=== PATIENT | female | born 1940 | race African-American/Black ===

== ENCOUNTER → 2016-06-26 | Outpatient (CLI) | payer MEDICARE, MEDICAID ==
[2016-06-26 11:45] LABS: HEMATOCRIT 32.1 % (36.0-47.0); HEMOGLOBIN 10.9 g/dL (12.0-15.5); HGB HCT DIFFERENCE 0.6; MEAN CORPUSCULAR HEMOGLOBIN 29.6 pg (27.0-33.4); MEAN CORPUSCULAR HGB CONC 33.8 g/dL (32.0-36.0); MEAN CORPUSCULAR VOLUME 88 fl (80-97); RED BLOOD COUNT 3.66 10^6/uL (3.72-5.28); RED CELL DISTRIBUTION WIDTH 13.8 % (11.5-14.0); WHITE BLOOD COUNT 6.3 10^3/uL (4.0-10.5)
[2016-06-26 11:50] LABS: APPEARANCE,URINE CLEAR; BILIRUBIN,URINE NEGATIVE (NEGATIVE); GLUCOSE, URINE 150 mg/dL (NEGATIVE); KETONES,URINE NEGATIVE (NEGATIVE); LEUKOCYTE ESTERASE,URINE TRACE (NEGATIVE); NITRITE,URINE NEGATIVE (NEGATIVE); PROTEIN,URINE 100 mg/dL (NEGATIVE); URINE SPECIFIC GRAVITY 1.009; UROBILINOGEN,URINE NEGATIVE mg/dL (<2.0)
[2016-06-26 12:03] LABS: ANION GAP 12 (5-19); BLOOD UREA NITROGEN 37 mg/dL (7-20); CALCIUM 9.8 mg/dL (8.4-10.2); CARBON DIOXIDE 28 mmol/L (22-30); CHLORIDE 102 mmol/L (98-107); CREATININE RESULT 2.17 mg/dL (0.52-1.25); GLUCOSE 220 mg/dL (75-110); POTASSIUM 4.9 mmol/L (3.6-5.0); SODIUM 141.5 mmol/L (137-145)
== END ==
LOC: OD 10:54
PROVIDERS: ATTEND Internal Medicine Nephrology
DX: E11.22 Type 2 diabetes mellitus with diabetic chronic kidney disease (principal); I12.9 Hypertensive chronic kidney disease with stage 1 through stage 4 chronic kidney disease, or unspecified chronic kidney disease; N18.4 Chronic kidney disease, stage 4 (severe); D64.9 Anemia, unspecified
CPT/HCPCS: 36415; 80048; 81001; 85027

== ENCOUNTER 2016-07-01 10:10 | Emergency (ER) | payer MEDICARE, MEDICAID ==
--- NOTE | 2016-07-02 10:40 | EKG REPORT ---
SEVERITY:- ABNORMAL ECG - SINUS RHYTHM LEFT ANTERIOR FASCICULAR BLOCK CONSIDER LEFT VENTRICULAR HYPERTROPHY NONSPECIFIC T ABNORMALITIES, INFERIOR LEADS : Confirmed by: Iris Maharaj MD 02-Jul-2016 10:39:27
[2016-07-02 12:03] LABS: ABSOLUTE EOSINOPHILS # (AUTO) 0.1 10^3/uL (0.0-0.6); ABSOLUTE LYMPHOCYTES (AUTO) 2.8 10^3/uL (0.5-4.7); ABSOLUTE MONOCYTES (AUTO) 0.6 10^3/uL (0.1-1.4); ABSOLUTE NEUT (AUTO) 2.9 10^3/uL (1.7-8.2); BASOPHILS % (AUTO) 0.4 % (0-2); EOSINOPHILS % (AUTO) 1.3 % (0-6); HEMATOCRIT 38.6 % (36.0-47.0); HEMOGLOBIN 12.8 g/dL (12.0-15.5); HGB HCT DIFFERENCE -0.2; LYMPHOCYTES % (AUTO) 43.4 % (13-45); MEAN CORPUSCULAR HEMOGLOBIN 29.2 pg (27.0-33.4); MEAN CORPUSCULAR HGB CONC 33.3 g/dL (32.0-36.0); MEAN CORPUSCULAR VOLUME 88 fl (80-97); MONOCYTES % (AUTO) 9.9 % (3-13); RED CELL DISTRIBUTION WIDTH 14.1 % (11.5-14.0); WHITE BLOOD COUNT 6.4 10^3/uL (4.0-10.5)
[2016-07-02 13:19] LABS: APPEARANCE,URINE SLIGHTLY-CLOUDY; BILIRUBIN,URINE NEGATIVE (NEGATIVE); GLUCOSE, URINE 50 mg/dL (NEGATIVE); KETONES,URINE NEGATIVE (NEGATIVE); LEUKOCYTE ESTERASE,URINE LARGE (NEGATIVE); NITRITE,URINE NEGATIVE (NEGATIVE); PROTEIN,URINE >=500 mg/dL (NEGATIVE); UROBILINOGEN,URINE NEGATIVE mg/dL (<2.0)
[2016-07-04 19:38] LABS: CALCIUM 9.9 mg/dL (8.4-10.2); GLUCOSE 127 mg/dL (75-110)
[2016-07-04 19:39] LABS: ALANINE AMINOTRANSFERASE 32 U/L (9-52); ALBUMIN 4.2 g/dL (3.5-5.0); ALKALINE PHOSPHATASE 29 U/L (38-126); ANION GAP 14 (5-19); ASPARTATE AMINO TRANSFERASE 23 U/L (14-36); BILIRUBIN,DIRECT 0.4 mg/dL (0.0-0.4); BILIRUBIN,TOTAL 0.5 mg/dL (0.2-1.3); BLOOD UREA NITROGEN 30 mg/dL (7-20); CARBON DIOXIDE 27 mmol/L (22-30); CHLORIDE 104 mmol/L (98-107); LIPASE 32.3 U/L (23-300); POTASSIUM 4.3 mmol/L (3.6-5.0); TOTAL PROTEIN 8.2 g/dL (6.3-8.2)
== END 2016-07-01 19:15 | disposition home or self-care (01) ==
LOC: ER 10:10
DX: R10.32 Left lower quadrant pain (principal); N39.0 Urinary tract infection, site not specified; M41.9 Scoliosis, unspecified; R25.2 Cramp and spasm; I10 Essential (primary) hypertension; J44.9 Chronic obstructive pulmonary disease, unspecified; R35.0 Frequency of micturition; I25.2 Old myocardial infarction; E11.9 Type 2 diabetes mellitus without complications; Z90.49 Acquired absence of other specified parts of digestive tract; Z95.1 Presence of aortocoronary bypass graft
CPT/HCPCS: 36415; 74176; 80053; 81001; 83690; 85025; 93005; 93010; 99284

== ENCOUNTER → 2016-07-31 | Outpatient (CLI) | payer MEDICARE, MEDICAID ==
[2016-07-31 13:06] LABS: APPEARANCE,URINE CLEAR; BILIRUBIN,URINE NEGATIVE (NEGATIVE); GLUCOSE, URINE NEGATIVE (NEGATIVE); KETONES,URINE NEGATIVE (NEGATIVE); LEUKOCYTE ESTERASE,URINE TRACE (NEGATIVE); NITRITE,URINE NEGATIVE (NEGATIVE); PROTEIN,URINE 100 mg/dL (NEGATIVE); URINE SPECIFIC GRAVITY 1.011; UROBILINOGEN,URINE NEGATIVE mg/dL (<2.0)
[2016-07-31 13:10] LABS: HEMATOCRIT 30.5 % (36.0-47.0); HGB HCT DIFFERENCE -0.5; MEAN CORPUSCULAR HEMOGLOBIN 28.9 pg (27.0-33.4); MEAN CORPUSCULAR HGB CONC 32.9 g/dL (32.0-36.0); MEAN CORPUSCULAR VOLUME 88 fl (80-97); RED BLOOD COUNT 3.47 10^6/uL (3.72-5.28); RED CELL DISTRIBUTION WIDTH 13.9 % (11.5-14.0); WHITE BLOOD COUNT 5.7 10^3/uL (4.0-10.5)
[2016-07-31 13:37] LABS: ANION GAP 12 (5-19); BLOOD UREA NITROGEN 24 mg/dL (7-20); CALCIUM 9.4 mg/dL (8.4-10.2); CARBON DIOXIDE 26 mmol/L (22-30); CHLORIDE 106 mmol/L (98-107); CREATININE RESULT 1.58 mg/dL (0.52-1.25); GLUCOSE 138 mg/dL (75-110); POTASSIUM 4.2 mmol/L (3.6-5.0); SODIUM 143.8 mmol/L (137-145)
== END ==
LOC: OD 11:18
PROVIDERS: ATTEND Internal Medicine Nephrology
DX: E11.22 Type 2 diabetes mellitus with diabetic chronic kidney disease (principal); I12.9 Hypertensive chronic kidney disease with stage 1 through stage 4 chronic kidney disease, or unspecified chronic kidney disease; N18.4 Chronic kidney disease, stage 4 (severe); R80.9 Proteinuria, unspecified
CPT/HCPCS: 36415; 80048; 81001; 85027

== ENCOUNTER → 2016-09-22 | Outpatient (CLI) | payer MEDICARE, MEDICAID ==
[2016-09-22 10:01] LABS: HEMATOCRIT 33.5 % (36.0-47.0); HEMOGLOBIN 11.1 g/dL (12.0-15.5); HGB HCT DIFFERENCE -0.2; MEAN CORPUSCULAR HEMOGLOBIN 30.2 pg (27.0-33.4); MEAN CORPUSCULAR HGB CONC 33.3 g/dL (32.0-36.0); MEAN CORPUSCULAR VOLUME 91 fl (80-97); RED BLOOD COUNT 3.68 10^6/uL (3.72-5.28); RED CELL DISTRIBUTION WIDTH 14.4 % (11.5-14.0); WHITE BLOOD COUNT 5.6 10^3/uL (4.0-10.5)
[2016-09-22 10:15] LABS: ANION GAP 10 (5-19); BLOOD UREA NITROGEN 43 mg/dL (7-20); CALCIUM 9.4 mg/dL (8.4-10.2); CARBON DIOXIDE 28 mmol/L (22-30); CHLORIDE 105 mmol/L (98-107); CREATININE RESULT 2.41 mg/dL (0.52-1.25); GLUCOSE 79 mg/dL (75-110); POTASSIUM 4.8 mmol/L (3.6-5.0); SODIUM 143.4 mmol/L (137-145)
[2016-09-23 15:38] LABS: ALBUMIN 2 3.7 g/dL (2.9-4.4); ALPHA-1-GLOBULIN 2 0.3 g/dL (0.0-0.4); GAMMA GLOBULIN 1.2 g/dL (0.4-1.8); PROTEIN TOTAL SERUM 7.3 g/dL (6.0-8.5)
[2016-09-23 17:11] LABS: APPEARANCE,URINE SLIGHTLY-CLOUDY; BILIRUBIN,URINE NEGATIVE (NEGATIVE); GLUCOSE, URINE NEGATIVE (NEGATIVE); KETONES,URINE NEGATIVE (NEGATIVE); LEUKOCYTE ESTERASE,URINE LARGE (NEGATIVE); NITRITE,URINE NEGATIVE (NEGATIVE); PROTEIN,URINE 100 mg/dL (NEGATIVE); UROBILINOGEN,URINE NEGATIVE mg/dL (<2.0)
[2016-09-23 17:17] LABS: URINE CREATININE 86.4 mg/dL (15-278); URINE PROTEIN 85.5 mg/dL (<12)
== END ==
LOC: OD 08:49
PROVIDERS: ATTEND Internal Medicine Nephrology
DX: E11.22 Type 2 diabetes mellitus with diabetic chronic kidney disease (principal); I12.9 Hypertensive chronic kidney disease with stage 1 through stage 4 chronic kidney disease, or unspecified chronic kidney disease; N18.4 Chronic kidney disease, stage 4 (severe); R80.9 Proteinuria, unspecified
CPT/HCPCS: 36415; 80048; 81001; 82570; 82728; 83540; 83550; 84156; 84165; 85027

== ENCOUNTER → 2016-10-06 | Outpatient (CLI) | payer MEDICARE, MEDICAID ==
[2016-10-06 12:50] LABS: APPEARANCE,URINE CLEAR; BILIRUBIN,URINE NEGATIVE (NEGATIVE); GLUCOSE, URINE NEGATIVE (NEGATIVE); KETONES,URINE NEGATIVE (NEGATIVE); LEUKOCYTE ESTERASE,URINE MODERATE (NEGATIVE); NITRITE,URINE NEGATIVE (NEGATIVE); PROTEIN,URINE 100 mg/dL (NEGATIVE); URINE SPECIFIC GRAVITY 1.013; UROBILINOGEN,URINE NEGATIVE mg/dL (<2.0)
== END ==
LOC: OD 11:32
PROVIDERS: ATTEND Internal Medicine Nephrology
DX: N39.0 Urinary tract infection, site not specified (principal)
CPT/HCPCS: 81001; 87086; 87088; 87186

== ENCOUNTER → 2016-10-14 | Outpatient (CLI) | payer MEDICARE, MEDICAID ==
--- NOTE | 2016-10-14 10:01 | RADIOLOGY REPORT (SQ) ---
EXAM DESCRIPTION: CAROTID DOPPLER COMPLETED DATE/TIME: 10/14/2016 9:25 am REASON FOR STUDY: SYNCOPE R01.1 CARDIAC MURMUR, UNSPECIFIED R55 SYNCOPE AND COLLAPSE COMPARISON: None. TECHNIQUE: Grayscale ultrasound, Doppler velocity and spectra, and color Doppler images acquired of the extra-cranial carotid and vertebral arteries. Images stored on PACS. LIMITATIONS: None. FINDINGS: RIGHT CAROTID CCA Velocities: Within normal limits. ICA Velocities Peak systolic 0.81 m/s. End diastolic 0.26 m/s. Proximal ICA/CCA peak systolic ratio 1.5. There is calcified plaque present the carotid bulb. LEFT CAROTID CCA Velocities: Within normal limits. ICA Velocities Peak systolic 0.66 m/s. End diastolic 0.23 m/s. Proximal ICA/CCA peak systolic ratio 1.3. There is calcified plaque present the carotid bulb. VERTEBRAL ARTERIES: Antegrade flow. Normal waveforms. SUBCLAVIAN ARTERIES: No finding. OTHER: No other significant finding. IMPRESSION: NO HEMODYNAMICALLY SIGNIFICANT STENOSIS. COMMENT: Quality ID #[id number]: Velocity criteria are extrapolated from the diameter data as defined by t he Society of Radiologists in Ultrasound Consensus Conference. Radiology 2003: 229; 340-346. TECHNICAL DOCUMENTATION: JOB ID: [id number] [employer]STATZ- All Rights Reserved
--- NOTE | 2016-10-15 19:24 | XCELERA REPORT ---
[address] [address] Transthoracic Echocardiogram Report Name: MYRA RODRIGUEZ Age: 76 yrs Gender: Female : 1940 Patient Status: Outpatient Patient Location: Study Date: 10/14/2016 08:42 AM Height: 67 in Weight: 148 lb BSA: 1.8 m2 Procedure: A complete two-dimensional transthoracic echocardiogram was performed (2D, M-mode, spectral and color flow Doppler). The study was technically difficult with many images being suboptimal in quality. Reason For Study: MURMUR Ordering Physician: Everett ELKINS Performed By: Lucrecia Cancino Interpretation Summary The left ventricular ejection fraction is normal.There is moderate aortic stenosis There is mild concentric left ventricular hypertrophy. Doppler measurements suggest pseudonormalized left ventricular relaxation, which is associated with grade II/IV or mild to moderate diastolic dysfunction The left ventricle is grossly normal size. Not all wall segments were well visualized. Wall motion cannot be accurately commented on, but no definite regional wall motion abnormalities noted. There is moderate aortic stenosis There is a peak gradient of 58, mean 36 mm of Hg. The aortic root is not well visualized but is probably normal size. The inferior vena cava was not well visualized There is normal right ventricular wall thickness. There is a mild amount of aortic regurgitation There is a trace to mild amount of mitral regurgitation There is no mitral valve stenosis. The right ventricular systolic function is normal. There is no pericardial effusion. MMode/2D Measurements & Calculations RVDd: 2.4 cm LVIDd: 3.4 cm FS: 28.1 % EPSS: 1.4 cm IVSd: 0.92 cm LVIDs: 2.5 cm EDV(Teich): 48.6 ml LVPWd: 0.92 cm ESV(Teich): 21.7 ml EF(Teich): 55.4 % Ao root diam: 2.8 cm LVOT diam: 2.1 cm Ao root area: 6.3 cm2 LVOT area: 3.3 cm2 LA dimension: 3.2 cm Doppler Measurements & Calculations MV E max keysha: MV V2 max: MV P1/2t max keysha: Ao V2 max: 110.6 cm/sec 141.8 cm/sec 111.6 cm/sec 380.1 cm/sec MV A max keysha: MV max PG: MV P1/2t: 81.8 msec Ao max P.4 cm/sec 8.0 mmHg MVA(P1/2t): 2.7 cm2 57.8 mmHg MV E/A: 0.91 MV V2 mean: MV dec slope: Ao V2 mean: 82.3 cm/sec 399.5 cm/sec2 286.5 cm/sec MV mean PG: Ao mean P.2 mmHg 36.3 mmHg MV V2 VTI: Ao V2 VTI: 52.7 cm 107.9 cm MVA(VTI): 1.3 cm2 RUDDY(I,D): 0.64 cm2 RUDDY(V,D): 0.69 cm2 LV V1 max PG: SV(LVOT): 69.2 mlPA V2 max: PI end-d keysha: 2.5 mmHg 87.4 cm/sec 104.7 cm/sec LV V1 mean PG: PA max P.1 mmHg 1.4 mmHg LV V1 max: 78.4 cm/sec LV V1 mean: 54.8 cm/sec LV V1 VTI: 20.7 cm TR max keysha: 237.6 cm/sec TR max P.6 mmHg Left Ventricle The left ventricle is grossly normal size. There is mild concentric left ventricular hypertrophy. The left ventricular ejection fraction is normal. Doppler measurements suggest pseudonormalized left ventricular relaxation, which is associated with grade II/IV or mild to moderate diastolic dysfunction. Not all wall segments were well visualized. Wall motion cannot be accurately commented on, but no definite regional wall motion abnormalities noted. Right Ventricle The right ventricle is grossly normal size. There is normal right ventricular wall thickness. The right ventricular systolic function is normal. Atria The right atrium is normal in size. The left atrial size is normal. Interarterial septum not well visualized and not well dopplered. Cannot comment on ASD/PFO presence. Mitral Valve There is moderate mitral leaflet calcification. There is moderate mitral annular calcification. There is no mitral valve stenosis. There is a trace to mild amount of mitral regurgitation. Aortic Valve The aortic valve is moderately calcified. There is moderate aortic stenosis. There is a peak gradient of 58, mean 36 mm of Hg. There is a mild amount of aortic regurgitation. Tricuspid Valve The tricuspid valve is not well visualized secondary to technical limitations. There is no tricuspid stenosis. There is a trace or physiologic amount of tricuspid regurgitation. Tricuspid regurgitation jet envelope not well defined to measure RV systolic pressure accurately. Pulmonic Valve The pulmonic valve is not well visualized. Great Vessels The aortic root is not well visualized but is probably normal size. The inferior vena cava was not well visualized. Effusions There is no pericardial effusion. : Everett ELKINS Shyamal
== END ==
LOC: SP 08:05
PROVIDERS: ATTEND Internal Medicine Nephrology
DX: R01.1 Cardiac murmur, unspecified (principal); R55 Syncope and collapse
CPT/HCPCS: 93306; 93880

== ENCOUNTER → 2016-10-26 | Outpatient (CLI) | payer MEDICARE, MEDICAID ==
[2016-10-26 10:37] LABS: APPEARANCE,URINE CLEAR; BILIRUBIN,URINE NEGATIVE (NEGATIVE); GLUCOSE, URINE NEGATIVE (NEGATIVE); KETONES,URINE NEGATIVE (NEGATIVE); LEUKOCYTE ESTERASE,URINE TRACE (NEGATIVE); NITRITE,URINE NEGATIVE (NEGATIVE); PROTEIN,URINE 100 mg/dL (NEGATIVE); URINE SPECIFIC GRAVITY 1.012; UROBILINOGEN,URINE NEGATIVE mg/dL (<2.0)
[2016-10-26 11:10] LABS: ANION GAP 11 (5-19); BLOOD UREA NITROGEN 35 mg/dL (7-20); CALCIUM 9.5 mg/dL (8.4-10.2); CARBON DIOXIDE 27 mmol/L (22-30); CHLORIDE 104 mmol/L (98-107); CREATININE RESULT 2.26 mg/dL (0.52-1.25); GLUCOSE 112 mg/dL (75-110); POTASSIUM 5.1 mmol/L (3.6-5.0); SODIUM 141.9 mmol/L (137-145)
== END ==
LOC: OD 09:57
PROVIDERS: ATTEND Internal Medicine Nephrology
DX: D64.9 Anemia, unspecified (principal); E11.22 Type 2 diabetes mellitus with diabetic chronic kidney disease; I12.9 Hypertensive chronic kidney disease with stage 1 through stage 4 chronic kidney disease, or unspecified chronic kidney disease; N18.4 Chronic kidney disease, stage 4 (severe)
CPT/HCPCS: 36415; 80048; 81001

== ENCOUNTER → 2016-12-25 | Outpatient (CLI) | payer MEDICARE, MEDICAID ==
[2016-12-25 11:00] LABS: HEMATOCRIT 33.4 % (36.0-47.0); HEMOGLOBIN 11.5 g/dL (12.0-15.5); HGB HCT DIFFERENCE 1.1; MEAN CORPUSCULAR HEMOGLOBIN 30.1 pg (27.0-33.4); MEAN CORPUSCULAR HGB CONC 34.3 g/dL (32.0-36.0); MEAN CORPUSCULAR VOLUME 88 fl (80-97); RED BLOOD COUNT 3.81 10^6/uL (3.72-5.28); RED CELL DISTRIBUTION WIDTH 13.2 % (11.5-14.0); WHITE BLOOD COUNT 6.6 10^3/uL (4.0-10.5)
[2016-12-25 11:03] LABS: APPEARANCE,URINE SLIGHTLY-CLOUDY; BILIRUBIN,URINE NEGATIVE (NEGATIVE); GLUCOSE, URINE NEGATIVE (NEGATIVE); KETONES,URINE NEGATIVE (NEGATIVE); LEUKOCYTE ESTERASE,URINE NEGATIVE (NEGATIVE); NITRITE,URINE NEGATIVE (NEGATIVE); PROTEIN,URINE 100 mg/dL (NEGATIVE); URINE SPECIFIC GRAVITY 1.009; UROBILINOGEN,URINE NEGATIVE mg/dL (<2.0)
[2016-12-25 11:33] LABS: ANION GAP 12 (5-19); BLOOD UREA NITROGEN 38 mg/dL (7-20); CALCIUM 9.2 mg/dL (8.4-10.2); CARBON DIOXIDE 27 mmol/L (22-30); CHLORIDE 107 mmol/L (98-107); CREATININE RESULT 2.19 mg/dL (0.52-1.25); GLUCOSE 151 mg/dL (75-110); PHOSPHORUS 4.5 mg/dL (2.5-4.5); POTASSIUM 3.9 mmol/L (3.6-5.0); SODIUM 145.7 mmol/L (137-145)
== END ==
LOC: OD 10:00
PROVIDERS: ATTEND Physician Assistant Medical
DX: E11.22 Type 2 diabetes mellitus with diabetic chronic kidney disease (principal); N18.4 Chronic kidney disease, stage 4 (severe); D64.9 Anemia, unspecified; E87.5 Hyperkalemia
CPT/HCPCS: 36415; 80048; 81001; 83970; 84100; 85027

== ENCOUNTER → 2017-03-08 | Outpatient (CLI) | payer MEDICARE, MEDICAID ==
[2017-03-08 12:26] LABS: ANION GAP 8 (5-19); BLOOD UREA NITROGEN 33 mg/dL (7-20); CALCIUM 9.5 mg/dL (8.4-10.2); CARBON DIOXIDE 26 mmol/L (22-30); CHLORIDE 108 mmol/L (98-107); GLUCOSE 149 mg/dL (75-110); POTASSIUM 4.9 mmol/L (3.6-5.0); SODIUM 141.6 mmol/L (137-145)
[2017-03-08 12:37] LABS: URINE CREATININE 120.6 mg/dL (15-278)
[2017-03-08 12:48] LABS: UR PRO/CREAT RATIO RESULT 2.5 mg/mg (0.0-0.2); URINE PROTEIN 304.9 mg/dL (<12)
== END ==
LOC: OD 11:14
PROVIDERS: ATTEND Physician Assistant Medical
DX: E11.22 Type 2 diabetes mellitus with diabetic chronic kidney disease (principal); I12.9 Hypertensive chronic kidney disease with stage 1 through stage 4 chronic kidney disease, or unspecified chronic kidney disease; N18.4 Chronic kidney disease, stage 4 (severe); D64.9 Anemia, unspecified
CPT/HCPCS: 36415; 80048; 82570; 84156

== ENCOUNTER → 2017-04-21 | Outpatient (CLI) | payer MEDICARE, MEDICAID ==
[2017-04-21 12:41] LABS: HEMATOCRIT 36.5 % (36.0-47.0); HEMOGLOBIN 12.2 g/dL (12.0-15.5); MEAN CORPUSCULAR HGB CONC 33.4 g/dL (32.0-36.0); MEAN CORPUSCULAR VOLUME 87 fl (80-97); PLATELET COUNT 171 10^3/uL (150-450); RED CELL DISTRIBUTION WIDTH 14.3 % (11.5-14.0); WHITE BLOOD COUNT 6.2 10^3/uL (4.0-10.5)
[2017-04-21 12:49] LABS: APPEARANCE,URINE CLEAR; BILIRUBIN,URINE NEGATIVE (NEGATIVE); COLOR,URINE STRAW; GLUCOSE, URINE NEGATIVE (NEGATIVE); KETONES,URINE NEGATIVE (NEGATIVE); LEUKOCYTE ESTERASE,URINE SMALL (NEGATIVE); NITRITE,URINE NEGATIVE (NEGATIVE); PROTEIN,URINE 100 mg/dL (NEGATIVE); URINE SPECIFIC GRAVITY 1.008; UROBILINOGEN,URINE NEGATIVE mg/dL (<2.0)
[2017-04-21 13:04] LABS: ANION GAP 7 (5-19); BLOOD UREA NITROGEN 25 mg/dL (7-20); CALCIUM 9.3 mg/dL (8.4-10.2); CARBON DIOXIDE 27 mmol/L (22-30); CHLORIDE 110 mmol/L (98-107); GLUCOSE 83 mg/dL (75-110); POTASSIUM 4.6 mmol/L (3.6-5.0); SODIUM 143.8 mmol/L (137-145)
[2017-04-21 13:27] LABS: URINE CREATININE 38.3 mg/dL (15-278)
[2017-04-21 13:43] LABS: UR PRO/CREAT RATIO RESULT 7.4 mg/mg (0.0-0.2); URINE PROTEIN 283.9 mg/dL (<12)
== END ==
LOC: OD 11:48
PROVIDERS: ATTEND Physician Assistant Medical
DX: N18.4 Chronic kidney disease, stage 4 (severe) (principal); E11.9 Type 2 diabetes mellitus without complications; D64.9 Anemia, unspecified
CPT/HCPCS: 36415; 80048; 81001; 82570; 84156; 85027

== ENCOUNTER 2017-06-07 11:13 | Observation (INO) | payer MEDICARE, MEDICAID ==
[2017-06-07] MEDS ORDERED: NITROGLYCERIN 0.4 MG/TAB 25 TAB/BOTTLE SL PRN (13:55)
[2017-06-07 14:02] LABS: ABSOLUTE BASOPHILS # (AUTO) 0.1 10^3/uL (0.0-0.2); ABSOLUTE EOSINOPHILS # (AUTO) 0.1 10^3/uL (0.0-0.6); ABSOLUTE LYMPHOCYTES (AUTO) 2.7 10^3/uL (0.5-4.7); ABSOLUTE MONOCYTES (AUTO) 0.6 10^3/uL (0.1-1.4); ABSOLUTE NEUT (AUTO) 3.1 10^3/uL (1.7-8.2); BASOPHILS % (AUTO) 1.1 % (0-2); EOSINOPHILS % (AUTO) 1.9 % (0-6); HEMATOCRIT 35.1 % (36.0-47.0); HEMOGLOBIN 11.8 g/dL (12.0-15.5); LYMPHOCYTES % (AUTO) 40.3 % (13-45); MEAN CORPUSCULAR HEMOGLOBIN 28.6 pg (27.0-33.4); MEAN CORPUSCULAR HGB CONC 33.5 g/dL (32.0-36.0); MEAN CORPUSCULAR VOLUME 85 fl (80-97); MONOCYTES % (AUTO) 9.6 % (3-13); PLATELET COUNT 137 10^3/uL (150-450); RED BLOOD COUNT 4.12 10^6/uL (3.72-5.28); RED CELL DISTRIBUTION WIDTH 14.1 % (11.5-14.0); SEGMENTED NEUTROPHILS % (AUTO) 47.1 % (42-78); TOTAL CELLS COUNTED % (AUTO) 100 %; WHITE BLOOD COUNT 6.6 10^3/uL (4.0-10.5)
[2017-06-07 14:29] LABS: ALANINE AMINOTRANSFERASE 22 U/L (9-52); ALBUMIN 3.6 g/dL (3.5-5.0); ALKALINE PHOSPHATASE 69 U/L (38-126); ANION GAP 9 (5-19); ASPARTATE AMINO TRANSFERASE 18 U/L (14-36); BILIRUBIN,DIRECT 0.3 mg/dL (0.0-0.4); BILIRUBIN,TOTAL 0.3 mg/dL (0.2-1.3); BLOOD UREA NITROGEN 35 mg/dL (7-20); CALCIUM 9.3 mg/dL (8.4-10.2); CARBON DIOXIDE 29 mmol/L (22-30); CHLORIDE 108 mmol/L (98-107); CREATINE KINASE 96 U/L (30-135); GLUCOSE 135 mg/dL (75-110); SODIUM 145.8 mmol/L (137-145); TOTAL PROTEIN 6.9 g/dL (6.3-8.2)
[2017-06-07 14:45] LABS: CREATINE KINASE MB 1.39 ng/mL (<4.55)
[2017-06-07 14:48] LABS: TROPONIN I < 0.012 ng/mL
[2017-06-07] MEDS ORDERED: FAMOTIDINE 20 MG TABLET PO SCH (18:00)
[2017-06-07] MEDS: FAMOTIDINE 20 MG TABLET PO SCH (19:15)
--- NOTE | 2017-06-07 19:44 | EKG REPORT ---
SEVERITY:- ABNORMAL ECG - SINUS RHYTHM LEFT ANTERIOR FASCICULAR BLOCK LVH WITH SECONDARY REPOLARIZATION ABNORMALITY : Confirmed by: Pj Zamora MD 07-Jun-2017 19:42:47
--- NOTE | 2017-06-07 20:43 | PDOC H&P ---
History of Present Illness Admission Date/PCP: 06/07/17 11:13 History of Present Illness: MYRA RODRIGUEZ is a 77 year old female, She has a history of coronary artery disease status post coronary artery bypass grafting, type 2 diabetes mellitus, chronic kidney disease stage IV, sedentary lifestyle she came to the office today for follow-up appointment, she complained of chest pressure she stated " it feels like there is a man on my chest", she has these symptoms for the last few days, in the office a 12-lead EKG was done, it was sinus rhythm with inverted T-wave in lateral leads because the symptom is very suspicious for ischemia and the fact that she does have a history of CAD with coronary artery bypass it was felt that the best plan of care for this patient at this time is to admit her to the hospital for further evaluation and to rule out acute coronary syndrome Past Medical History Cardiac Medical History: Reports: Coronary Artery Disease, Myocardial Infarction , Hyperlipidema, Hypertension Pulmonary Medical History: Reports: Pneumonia Endocrine Medical History: Reports: Diabetes Mellitus Type 2 Renal/ Medical History: Reports: Other - Chronic kidney disease stage IV Musculoskeltal Medical History: Reports: Arthritis Past Surgical History Past Surgical History: Reports: Coronary Artery Bypass Graft, Hysterectomy Social History Smoking Status: Never Smoker Frequency of Alcohol Use: None Hx Recreational Drug Use: No Drugs: None Hx Prescription Drug Abuse: No - Advance Directive Resuscitation Status: Full Code Family History Family History: Reviewed & Not Pertinent Parental Family History Reviewed: Yes Children Family History Reviewed: Yes Sibling(s) Family History Reviewed.: Yes Medication/Allergy Home Medications: Aspirin [Aspirin 81 mg Chewable Tablet] 81 mg PO DAILY 07/18/15 Carvedilol [Coreg 12.5 mg Tablet] 12.5 mg PO Q12 07/18/15 Famotidine 20 mg PO BID 07/18/15 Furosemide [Lasix] 40 mg PO QAM 07/18/15 Levothyroxine Sodium 88 mcg PO Q6AM 07/18/15 Linagliptin [Tradjenta] 5 mg PO DAILY 07/18/15 Rosuvastatin Calcium [Crestor 20 mg Tablet] 20 mg PO QHS 07/18/15 Amlodipine Besylate [Norvasc 5 mg Tablet] 5 mg PO DAILY 06/07/17 Insulin Glargine,Hum.rec.anlog [Lantus Insulin 100 Unit/mL] 10 units SUBCUT DAILY MDD SEE PATIENT COMMENTS 06/07/17 Losartan Potassium [Cozaar 100 mg Tablet] 100 mg PO DAILY 06/07/17 Nitroglycerin [Nitrostat 0.4 mg (1/150 Gr) Tabs 25/Bottle] 1 tab SL Q5MP PRN Allergies/Adverse Reactions: ezetimibe [From Zetia] Allergy (Verified 07/02/14 21:28) lactose [Lactose] Allergy (Verified 07/02/14 21:28) Review of Systems Constitutional: ABSENT: chills, fever(s), headache(s), weight gain, weight loss Eyes: ABSENT: visual disturbances Ears: ABSENT: hearing changes Cardiovascular: PRESENT: chest pain. ABSENT: dyspnea on exertion, edema, orthropnea, palpitations Respiratory: ABSENT: cough, hemoptysis Gastrointestinal: ABSENT: abdominal pain, constipation, diarrhea, hematemesis, hematochezia, nausea, vomiting Genitourinary: ABSENT: dysuria, hematuria Musculoskeletal: ABSENT: joint swelling Integumentary: ABSENT: rash, wounds Neurological: ABSENT: abnormal gait, abnormal speech, confusion, dizziness, focal weakness, syncope Psychiatric: ABSENT: anxiety, depression, homidical ideation, suicidal ideation Endocrine: ABSENT: cold intolerance, heat intolerance, menstrual abnormalities, polydipsia, polyuria Hematologic/Lymphatic: ABSENT: easy bleeding, easy bruising, lymphadenopathy Physical Exam Vital Signs: Temp Pulse Resp BP Pulse Ox 97.9 F 63 16 161/66 H 100 06/07/17 16:07 06/07/17 16:07 06/07/17 16:07 06/07/17 16:07 06/07/17 16:07 Intake & Output 06/06/17 06/07/17 06/08/17 06:59 06:59 06:59 Intake Total 487 Balance 487 Weight 66.7 kg General appearance: PRESENT: no acute distress, well-developed, well-nourished Head exam: PRESENT: atraumatic, normocephalic Eye exam: PRESENT: conjunctiva pink, EOMI, PERRLA Ear exam: PRESENT: normal external ear exam Mouth exam: PRESENT: moist, tongue midline Neck exam: PRESENT: full ROM Cardiovascular exam: PRESENT: RRR, +S1, +S2 Pulses: PRESENT: normal dorsalis pedis pul, +2 pedal pulses bilateral Vascular exam: PRESENT: normal capillary refill GI/Abdominal exam: PRESENT: normal bowel sounds, soft Rectal exam: PRESENT: deferred Neurological exam: PRESENT: alert, awake, oriented to person, oriented to place , oriented to time, oriented to situation, CN II-XII grossly intact Psychiatric exam: PRESENT: appropriate affect, normal mood Skin exam: PRESENT: dry, intact, warm Results Laboratory Results: 06/07/17 13:36 06/07/17 13:36 06/07/17 06/07/17 13:36 13:36 WBC 6.6 RBC 4.12 Hgb 11.8 L Hct 35.1 L MCV 85 MCH 28.6 MCHC 33.5 RDW 14.1 H Plt Count 137 L Seg Neutrophils % 47.1 Lymphocytes % 40.3 Monocytes % 9.6 Eosinophils % 1.9 Basophils % 1.1 Absolute Neutrophils 3.1 Absolute Lymphocytes 2.7 Absolute Monocytes 0.6 Absolute Eosinophils 0.1 Absolute Basophils 0.1 Sodium 145.8 H Potassium 4.0 Chloride 108 H Carbon Dioxide 29 Anion Gap 9 BUN 35 H Creatinine 1.94 H Est GFR ( Amer) 30 L Est GFR (Non-Af Amer) 25 L Glucose 135 H Calcium 9.3 Total Bilirubin 0.3 AST 18 ALT 22 Alkaline Phosphatase 69 Total Protein 6.9 Albumin 3.6 06/07/17 06/07/17 13:36 13:36 Creatine Kinase 96 CK-MB (CK-2) 1.39 Troponin I < 0.012 Assessment & Plan - Diagnosis (1) Chest pain Qualifiers: Chest pain type: precordial pain Qualified Code(s): R07.2 - Precordial pain Is this a current diagnosis for this admission?: Yes (2) Coronary artery disease Qualifiers: Coronary Disease-Associated Artery/Lesion type: unspecified vessel or lesion type [place] vs. transplanted heart: [place] heart Associated angina: angina presence unspecified Qualified Code(s): I25.10 - Atherosclerotic heart disease of [place] coronary artery without angina pectoris Is this a current diagnosis for this admission?: Yes (3) Chronic kidney disease, stage IV (severe) Is this a current diagnosis for this admission?: Yes (4) Type 2 diabetes mellitus Qualifiers: Diabetes mellitus terminal worker insulin use: with terminal worker use Diabetes mellitus complication status: with kidney complications Diabetes mellitus complication detail: with chronic kidney disease Chronic kidney disease stage : stage 3 (moderate) Qualified Code(s): E11.22 - Type 2 diabetes mellitus with diabetic chronic kidney disease; N18.3 - Chronic kidney disease, stage 3 ( moderate); N18.3 - Chronic kidney disease, stage 3 (moderate); Z79.4 - terminal worker (current) use of insulin; Z79.4 - senior care (current) use of insulin; Z79.4 - terminal worker (current) use of insulin; Z79.4 - terminal worker (current) use of insulin Is this a current diagnosis for this admission?: Yes
[2017-06-07] MEDS ORDERED: (PENDING PHARMACY ID) (Linagliptin [Tradjenta] 5 MG) PO SCH (20:45)
[2017-06-07 21:05] LABS: CREATINE KINASE MB 1.26 ng/mL (<4.55)
[2017-06-07 21:06] LABS: TROPONIN I < 0.012 ng/mL
[2017-06-07] MEDS ORDERED: (PENDING PHARMACY ID) (Rosuvastatin Calcium [Crestor 20 Mg Tablet] 20 MG) PO SCH (22:00)
[2017-06-07] MEDS: ATORVASTATIN CALCIUM 40 MG TABLET PO SCH (23:07)
[2017-06-07] MEDS: CARVEDILOL 12.5 MG TABLET PO SCH (23:07)
[2017-06-08] MEDS: LEVOTHYROXINE SODIUM 0.088 MG TABLET PO SCH (05:32)
[2017-06-08 05:57] LABS: TROPONIN I < 0.012 ng/mL
[2017-06-08] MEDS: CARVEDILOL 12.5 MG TABLET PO SCH ×2 (10:33→21:27)
[2017-06-08] MEDS: INSULIN GLARGINE,HUM.REC.ANLOG 300 UNIT/3 ML INSULN.PEN SUBCUT SCH (10:33)
[2017-06-08] MEDS: ASPIRIN 81 MG TABLET, CHEWABLE PO SCH (10:34)
[2017-06-08] MEDS: AMLODIPINE BESYLATE 5 MG TABLET PO SCH (10:34)
[2017-06-08] MEDS: LOSARTAN POTASSIUM 50 MG TABLET PO SCH (10:34)
[2017-06-08] MEDS: FUROSEMIDE 40 MG TABLET PO SCH (10:34)
--- NOTE | 2017-06-08 11:22 | PDOC CONSULTATION ---
Consultation Consult Date: 06/07/17 Attending physician:: KRSYTEN ANDRE Consult reason:: Chest pain History of Present Illness Admission Date/PCP: 06/07/17 11:13 Patient complains of: Chest pain History of Present Illness: MYRA RODRIGUEZ is a 77 year old female with a history of coronary artery disease status post coronary artery bypass grafting, type 2 diabetes mellitus, chronic kidney disease stage IV, sedentary lifestyle she came to the office today for follow-up appointment, she complained of chest pressure she stated " it feels like there is a man on my chest", she has these symptoms for the last few days, in the office a 12-lead EKG was done, it was sinus rhythm with inverted T-wave in lateral leads because the symptom is very suspicious for ischemia and the fact that she does have a history of CAD with coronary artery bypass it was felt that the best plan of care for this patient at this time is to admit her to the hospital for further evaluation and to rule out acute coronary syndrome. This history was reviewed and confirmed. Patient gives history of coronary artery disease with status post coronary artery bypass graft surgery about 2 years ago. She denied any recent cardiovascular testing. Patient has also noted some exertional chest pain. Her symptoms started yesterday after she walked to the mailbox, she got very short of breath and subsequently when she came back to the house and rested she developed chest pain. Patient denied any sustained palpitations, syncope, near syncope. Patient denied any history of blood clots in the legs or in the lungs. Patient denied any prior history of strokes or mini strokes, seizure disorder. Past Medical History Cardiac Medical History: Reports: Coronary Artery Disease, Myocardial Infarction , Hyperlipidema, Hypertension Denies: Congestive Heart Failure Pulmonary Medical History: Reports: Pneumonia Denies: Asthma, Bronchitis, Chronic Obstructive Pulmonary Disease (COPD), Tuberculosis Neurological Medical History: Denies: Seizures Endocrine Medical History: Reports: Diabetes Mellitus Type 2 Renal/ Medical History: Denies: End Stage Renal Disease GI Medical History: Denies: Cirrhosis, Gastroesophageal Reflux Disease Musculoskeltal Medical History: Reports: Arthritis Psychiatric Medical History: Denies: Bipolar Disorder, Depression Hematology: Denies: Anemia, Bleeding Tendencies Past Surgical History Past Surgical History: Reports: Coronary Artery Bypass Graft, Hysterectomy Social History Information Source: Patient Smoking Status: Never Smoker Frequency of Alcohol Use: None Hx Recreational Drug Use: No Drugs: None Hx Prescription Drug Abuse: No - Advance Directive Resuscitation Status: Full Code Surrogate healthcare decision maker:: Patient's daughter is the surrogate decision-maker Family History Family History: Hypertension Parental Family History Reviewed: Yes Children Family History Reviewed: Yes Sibling(s) Family History Reviewed.: Yes Medication/Allergy Home Medications: Aspirin [Aspirin 81 mg Chewable Tablet] 81 mg PO DAILY 07/18/15 Carvedilol [Coreg 12.5 mg Tablet] 12.5 mg PO Q12 07/18/15 Famotidine 20 mg PO BID 07/18/15 Furosemide [Lasix] 40 mg PO QAM 07/18/15 Levothyroxine Sodium 88 mcg PO Q6AM 07/18/15 Linagliptin [Tradjenta] 5 mg PO DAILY 07/18/15 Rosuvastatin Calcium [Crestor 20 mg Tablet] 20 mg PO QHS 07/18/15 Amlodipine Besylate [Norvasc 5 mg Tablet] 5 mg PO DAILY 06/07/17 Insulin Glargine,Hum.rec.anlog [Lantus Insulin 100 Unit/mL] 10 units SUBCUT DAILY MDD SEE PATIENT COMMENTS 06/07/17 Losartan Potassium [Cozaar 100 mg Tablet] 100 mg PO DAILY 06/07/17 Nitroglycerin [Nitrostat 0.4 mg (1/150 Gr) Tabs 25/Bottle] 1 tab SL Q5MP PRN Allergies/Adverse Reactions: ezetimibe [From Zetia] Allergy (Verified 07/02/14 21:28) lactose [Lactose] Allergy (Verified 07/02/14 21:28) Review of Systems Review of Systems: Please see history of present illness and past medical history as wall. Constitutional: No fever or chills reported. Head : No recent chronic headaches, recent head injury. Eyes: No recent eye pain, diplopia, redness, discharge, acute visual changes. Ears: No recent chronic ear pain, acute hearing loss, ear discharge. Oral cavity: No recent ulcerations, bleeding, oral cavity discomfort. Neck: No recent acute neck pain reported. Hematologic: No recent easy bruising or bleeding. Lymphatic: No recent lymph node enlargement reported. Cardiovascular system review: See history of present illness. Respiratory system review: No hemoptysis or blood clots in the lungs reported. Mild Shortness of breath on exertion Gastrointestinal system review: Negative for any recent acute hematemesis, melena. Genitourinary system review: No recent acute or chronic hematuria, flank pain, UTI etc. reported. Skin system review: Negative for any recent abnormal bruising, no rash, no pruritus reported. Neurologic: No prior history of strokes, mini strokes, seizure disorder. Psychologic: No history of major psychosis or major depression reported. Musculoskeletal: Minor aches and pains reported. No acute joint swelling reported. Endocrine: No recent polyuria, polydipsia, recent heat or cold intolerance. Physical Exam Vital Signs: Temp Pulse Resp BP Pulse Ox 97.9 F 63 16 161/66 H 100 06/07/17 16:07 06/07/17 16:07 06/07/17 16:07 06/07/17 16:07 06/07/17 16:07 Intake & Output 06/06/17 06/07/17 06/08/17 06:59 06:59 06:59 Intake Total 487 Balance 487 Weight 66.7 kg Exam: GENERAL: well-nourished and in no acute distress. Alert and oriented x3 HEAD: Atraumatic, normocephalic. EYES: Pupils equal round and reactive to light, extraocular movements intact, sclera anicteric, conjunctiva are normal. ENT: TMs normal, nares patent, oropharynx clear without exudates. Moist mucous membranes. No oral ulcerations or bleeding gums noted NECK: supple without lymphadenopathy. Trachea is central. No cervical or axillary lymphadenopathy noted. Carotids are 2+ bilateral carotid bruit noted, JVD WNL LUNGS: Respiration seems nonlabored, no significant accessory muscle action noted. Breath sounds clear to auscultation bilaterally and equal noted. No wheezes rales or rhonchi noted. No significant dullness noted on percussion. CHEST: Palpation of the chest wall shows no significant chest wall tenderness. HEART: [place] MEDICAL ADVISOR, No PSH, 3/6 ENDY aortic area, 1/6 hogan systolic murmur mitral area , no rubs, no gallops. ABDOMEN: Soft, no significant tenderness appreciated, normoactive bowel sounds. No guarding, no rebound. No rigidity noted . No masses appreciated. EXTREMITIES: Pedal pulses are 1-2+, no calf tenderness noted. No clubbing or cyanosis. negative pedal edema noted NEUROLOGICAL: Focused neurological exam showed no significant neurologic deficit. Normal speech, no focal weakness appreciated. PSYCH: Normal mood, normal affect. Judgment and insight within normal limits. SKIN: No significant ecchymosis, skin is noted to be warm. MUSCULOSKELETAL EXAM: No significant acute joint swelling noted. Results Laboratory Results: 06/07/17 13:36 06/07/17 13:36 06/07/17 06/07/17 13:36 13:36 WBC 6.6 RBC 4.12 Hgb 11.8 L Hct 35.1 L MCV 85 MCH 28.6 MCHC 33.5 RDW 14.1 H Plt Count 137 L Seg Neutrophils % 47.1 Lymphocytes % 40.3 Monocytes % 9.6 Eosinophils % 1.9 Basophils % 1.1 Absolute Neutrophils 3.1 Absolute Lymphocytes 2.7 Absolute Monocytes 0.6 Absolute Eosinophils 0.1 Absolute Basophils 0.1 Sodium 145.8 H Potassium 4.0 Chloride 108 H Carbon Dioxide 29 Anion Gap 9 BUN 35 H Creatinine 1.94 H Est GFR ( Amer) 30 L Est GFR (Non-Af Amer) 25 L Glucose 135 H Calcium 9.3 Total Bilirubin 0.3 AST 18 ALT 22 Alkaline Phosphatase 69 Total Protein 6.9 Albumin 3.6 06/07/17 06/07/17 13:36 13:36 Creatine Kinase 96 CK-MB (CK-2) 1.39 Troponin I < 0.012 EKG Comments: Sinus rhythm with nonspecific T-wave inversions being noted. Assessment & Plan - Diagnosis (1) Chest pain Qualifiers: Chest pain type: precordial pain Qualified Code(s): R07.2 - Precordial pain Is this a current diagnosis for this admission?: Yes (2) Hypertension Qualifiers: Hypertension type: essential hypertension Qualified Code(s): I10 - Essential (primary) hypertension Is this a current diagnosis for this admission?: Yes (3) Hyperlipidemia Qualifiers: Hyperlipidemia type: unspecified Qualified Code(s): E78.5 - Hyperlipidemia , unspecified Is this a current diagnosis for this admission?: Yes (4) Chronic kidney disease, stage IV (severe) Is this a current diagnosis for this admission?: Yes (5) Coronary artery disease Qualifiers: Coronary Disease-Associated Artery/Lesion type: unspecified vessel or lesion type [place] vs. transplanted heart: [place] heart Associated angina: angina presence unspecified Qualified Code(s): I25.10 - Atherosclerotic heart disease of [place] coronary artery without angina pectoris Is this a current diagnosis for this admission?: Yes (6) Type 2 diabetes mellitus Qualifiers: Diabetes mellitus fdc insulin use: with intermediate frame tender use Diabetes mellitus complication status: with kidney complications Diabetes mellitus complication detail: with chronic kidney disease Chronic kidney disease stage : stage 3 (moderate) Qualified Code(s): E11.22 - Type 2 diabetes mellitus with diabetic chronic kidney disease; N18.3 - Chronic kidney disease, stage 3 ( moderate); N18.3 - Chronic kidney disease, stage 3 (moderate); Z79.4 - intermediate (current) use of insulin; Z79.4 - manager intermediate (current) use of insulin; Z79.4 - intermediate (current) use of insulin; Z79.4 - intermediate (current) use of insulin Is this a current diagnosis for this admission?: Yes - Notes Notes: Chest pain: Patient has known CAD, also has nonspecific T-wave inversion. Feel that patient will benefit from a nuclear stress test. This was be scheduled once [place] has ruled out. At this point will optimize medical therapy for underlying CAD. Coronary artery disease: Patient is status post coronary artery bypass graft surgery. There could be progression of [place] and or graft disease. Will try optimize medical therapy. Hyperlipidemia: Recommend high potency statin therapy. LDL goal is less than 70. Hypertension: Reasonably well controlled. Blood pressure goal in this patient is 135/85 or less. This was discussed with the patient. Currently blood pressure under reasonable control. Better medication for this patient are TIM inhibitor/ARB/beta akhil etc. discussed side effects of uncontrolled hypertension and also severe hypotension. Diabetes: Recommend good control of blood sugar. However should avoid any hypoglycemia and hyperglycemia. Patient being expertly managed by primary care M.D/hospitalist A 2D echo has been ordered. A nuclear stress test will be ordered later on after myocardial infarction has been ruled out. In the meantime will try optimize medical management for CAD. - Time Time Spent: 30 to 50 Minutes - CODE STATUS was discussed, patient remains full code. Surrogate decision-maker unchanged. Multiple medical problems were addressed. More than 50% of the time spent coordinating care, discussing management plans with involved caregivers. Management plans discussed with involved personnels. Medical decision making was of moderate to high complexity , patient's has multiple comorbidities. Medications reviewed and adjusted accordingly: Yes
--- NOTE | 2017-06-08 11:26 | PDOC PROGRESS REPORT ---
Subjective Progress Note for:: 06/08/17 Subjective:: Patient seems to be doing better. Cardiac enzymes have come back negative. Pt is denying any chest arm or neck discomfort. Patient denying any PND, orthopnea. Patient denied any sustained palpitations, dizziness, syncope, near syncope. Patient denying any fever chills. Patient denying any other significant discomfort. Patient is maintaining sinus rhythm. Review of systems: Rest review of systems negative. Medications: Medications have been reviewed. Reason For Visit: CHEST PRESSURE Physical Exam Vital Signs: Temp Pulse Resp BP Pulse Ox 98.3 F 55 L 18 160/66 H 97 06/08/17 07:38 06/08/17 07:38 06/08/17 07:38 06/08/17 07:38 06/08/17 07:38 Intake & Output 06/07/17 06/08/17 06/09/17 06:59 06:59 06:59 Intake Total 754 Balance 754 Weight 69.1 kg Exam: GENERAL: well-nourished and in no acute distress. Alert and oriented x3 HEAD: Atraumatic, normocephalic. EYES: Pupils equal round and reactive to light, extraocular movements intact, sclera anicteric, conjunctiva are normal. ENT: TMs normal, nares patent, oropharynx clear without exudates. Moist mucous membranes. No oral ulcerations or bleeding gums noted NECK: supple without lymphadenopathy. Trachea is central. No cervical or axillary lymphadenopathy noted. Carotids are 2+, JVD WNL LUNGS: Respiration seems nonlabored, no significant accessory muscle action noted. Breath sounds clear to auscultation bilaterally and equal noted. No wheezes rales or rhonchi noted. No significant dullness noted on percussion. CHEST: Palpation of the chest wall shows no significant chest wall tenderness. 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 ABDOMEN: Soft, no significant tenderness appreciated, normoactive bowel sounds. No guarding, no rebound. No rigidity noted . No masses appreciated. EXTREMITIES: Pedal pulses are 1-2+, no calf tenderness noted. No clubbing or cyanosis. negative pedal edema noted NEUROLOGICAL: Focused neurological exam showed no significant neurologic deficit. Normal speech, no focal weakness appreciated. PSYCH: Normal mood, normal affect. Judgment and insight within normal limits. SKIN: No significant ecchymosis, skin is noted to be warm. MUSCULOSKELETAL EXAM: No significant acute joint swelling noted. Results Laboratory Results: 06/07/17 13:36 06/07/17 13:36 06/07/17 06/07/17 13:36 13:36 WBC 6.6 RBC 4.12 Hgb 11.8 L Hct 35.1 L MCV 85 MCH 28.6 MCHC 33.5 RDW 14.1 H Plt Count 137 L Seg Neutrophils % 47.1 Lymphocytes % 40.3 Monocytes % 9.6 Eosinophils % 1.9 Basophils % 1.1 Absolute Neutrophils 3.1 Absolute Lymphocytes 2.7 Absolute Monocytes 0.6 Absolute Eosinophils 0.1 Absolute Basophils 0.1 Sodium 145.8 H Potassium 4.0 Chloride 108 H Carbon Dioxide 29 Anion Gap 9 BUN 35 H Creatinine 1.94 H Est GFR ( Amer) 30 L Est GFR (Non-Af Amer) 25 L Glucose 135 H Calcium 9.3 Total Bilirubin 0.3 AST 18 ALT 22 Alkaline Phosphatase 69 Total Protein 6.9 Albumin 3.6 06/07/17 06/07/17 06/07/17 13:36 13:36 19:55 Creatine Kinase 96 95 CK-MB (CK-2) 1.39 Troponin I < 0.012 06/07/17 06/08/17 06/08/17 19:55 04:12 04:12 Creatine Kinase 79 CK-MB (CK-2) 1.26 0.90 Troponin I < 0.012 < 0.012 EKG Comments: Telemetry strip shows sinus rhythm without any sustained tacky or bradycardia arrhythmias. Impressions: Telemetry Assessment & Plan - Diagnosis (1) Chest pain Qualifiers: Chest pain type: precordial pain Qualified Code(s): R07.2 - Precordial pain Is this a current diagnosis for this admission?: Yes (2) Hypertension Qualifiers: Hypertension type: essential hypertension Qualified Code(s): I10 - Essential (primary) hypertension Is this a current diagnosis for this admission?: Yes (3) Hyperlipidemia Qualifiers: Hyperlipidemia type: unspecified Qualified Code(s): E78.5 - Hyperlipidemia , unspecified Is this a current diagnosis for this admission?: Yes (4) Chronic kidney disease, stage IV (severe) Is this a current diagnosis for this admission?: Yes (5) Coronary artery disease Qualifiers: Coronary Disease-Associated Artery/Lesion type: unspecified vessel or lesion type [place] vs. transplanted heart: [place] heart Associated angina: angina presence unspecified Qualified Code(s): I25.10 - Atherosclerotic heart disease of [place] coronary artery without angina pectoris Is this a current diagnosis for this admission?: Yes (6) Type 2 diabetes mellitus Qualifiers: Diabetes mellitus mcc insulin use: with terminal makeup operator use Diabetes mellitus complication status: with kidney complications Diabetes mellitus complication detail: with chronic kidney disease Chronic kidney disease stage : stage 3 (moderate) Qualified Code(s): E11.22 - Type 2 diabetes mellitus with diabetic chronic kidney disease; N18.3 - Chronic kidney disease, stage 3 ( moderate); N18.3 - Chronic kidney disease, stage 3 (moderate); Z79.4 - terminal system operator (current) use of insulin; Z79.4 - prison (current) use of insulin; Z79.4 - prison (current) use of insulin; Z79.4 - terminal system operator (current) use of insulin Is this a current diagnosis for this admission?: Yes - Notes Notes: Schedule 2D echo and nuclear stress test. Patient's medical regimen reviewed and is noted to be satisfactory. Chest pain: Patient has known CAD, also has nonspecific T-wave inversion. Feel that patient will benefit from a nuclear stress test. Cardiac enzymes has come back negative we will therefore schedule patient for a nuclear stress test. 2D echo was ordered yesterday and still pending Coronary artery disease: Patient is status post coronary artery bypass graft surgery. There could be progression of [place] and or graft disease. Will try optimize medical therapy. Hyperlipidemia: Recommend high potency statin therapy. LDL goal is less than 70. Hypertension: Reasonably well controlled. Blood pressure goal in this patient is 135/85 or less. This was discussed with the patient. Currently blood pressure under reasonable control. Better medication for this patient are TIM inhibitor/ARB/beta akhil etc. discussed side effects of uncontrolled hypertension and also severe hypotension. Diabetes: Recommend good control of blood sugar. However should avoid any hypoglycemia and hyperglycemia. Patient being expertly managed by primary care M.D/hospitalist A 2D echo has been ordered. A nuclear stress test will be ordered later on after myocardial infarction has been ruled out. In the meantime will try optimize medical management for CAD. - Time Time with patient: 15-25 minutes - CODE STATUS was discussed, patient remains full code. Surrogate decision-maker unchanged. Multiple medical problems were addressed. More than 50% of the time spent coordinating care, discussing management plans with involved caregivers. Management plans discussed with involved personnels. Medical decision making was of moderate to high complexity , patient's has multiple comorbidities. Medications reviewed and adjusted accordingly: Yes
[2017-06-08] MEDS ORDERED: SITAGLIPTIN PHOSPHATE 25 MG TABLET PO ONE (12:30)
[2017-06-08] MEDS: FAMOTIDINE 20 MG TABLET PO SCH (17:58)
[2017-06-08] MEDS: ATORVASTATIN CALCIUM 40 MG TABLET PO SCH (21:27)
[2017-06-09] MEDS ORDERED: REGADENOSON INJ 0.4 MG/5 ML DISP.SYRIN IV ONE (06:00)
[2017-06-09] MEDS ORDERED: AMINOPHYLLINE INJ/PF 250 MG/10 ML SDV IV ONE (06:00)
[2017-06-09] MEDS: LEVOTHYROXINE SODIUM 0.088 MG TABLET PO SCH (06:21)
[2017-06-09] MEDS: FUROSEMIDE 40 MG TABLET PO SCH (08:43)
[2017-06-09] MEDS ORDERED: SITAGLIPTIN PHOSPHATE 25 MG TABLET PO SCH (10:00)
[2017-06-09] MEDS: AMLODIPINE BESYLATE 5 MG TABLET PO SCH (11:29)
[2017-06-09] MEDS: ASPIRIN 81 MG TABLET, CHEWABLE PO SCH (11:29)
[2017-06-09] MEDS: CARVEDILOL 12.5 MG TABLET PO SCH (11:29)
[2017-06-09] MEDS: LOSARTAN POTASSIUM 50 MG TABLET PO SCH (11:30)
[2017-06-09] MEDS: INSULIN GLARGINE,HUM.REC.ANLOG 300 UNIT/3 ML INSULN.PEN SUBCUT SCH (11:30)
--- NOTE | 2017-06-09 13:25 | DRAGON STRESS TEST REPORT ---
INTRAVENOUS LEXISCAN CARDIOLITE STRESS TEST USING SINGLE PHOTON EMMISION COMPUTERIZED TOMOGRAPHIC. DATE OF PROCEDURE: June 09, 2017, INDICATION : Chest pain CARDIAC RISK FACTORS: Diabetes, hypertension, dyslipidemia, CAD status post CABG RESTING EKG: Sinus rhythm, diffuse T-wave inversion indicative of LVH versus ischemia STRESS EKG: No significant ST segment changes noted with LexiScan bolus REASON FOR TERMINATION: Protocol. PROCEDURE REPORT: Baseline heart rate 57 beats per minute with blood pressure of 187/86. Patient had no significant complaints. Patient was bolused with Lexiscan 0.4 mg intravenously followed by saline bolus. Heart rate at 2 minutes post bolus 65 with a blood pressure of 124/72. 3 minutes post bolus heart rate 64 with blood pressure of 149/75. No significant EKG changes were noted. Patient had no significant complaints during the procedure or postprocedure. Patient injected with Aminophyllin 75 mg at 3 minutes or later after Lexiscan bolus. CONCLUSIONS: Normal EKG and hemodynamic response to IV LexiScan. NUCLEAR DATA: At rest the patient was given 10.12 millicuries of technetium 99 sestamibi injected intravenously. As per protocol rest gated SPECT images were obtained. On day of stress test, the patient was given intravenous LexiScan at a dose of 0.4 mg in 5 mL intravenously, followed by flush with normal saline. Subsequently the stress dose of 30.5 millicuries of technetium 99 sestamibi was injected intravenously. As per protocol stress gated images were obtained. NUCLEAR INTERPRETATION: Both raw and processed data were used for interpretation. Visual, qualitative, computer-generated quantitative data was used. There was good myocardial uptake of technetium compound. Motion artifact and soft tissue attenuations were noted. Increased visceral uptake was noted. Increased breast attenuation artifact and motion artifact were noted especially in the stress imaging. Mild decreased uptake was noted in the basal and mid anterior wall however felt to be related to differences in breast attenuation artifact. No corresponding wall motion abnormalities were noted. Therefore no definitive areas of transient perfusion defect noted, No definitive areas of fixed perfusion defect or scars noted. EKG gated imaging showed LV EF at 46 %, rest and stress gated EF similar visually. T. I D. ratio was 0.90. Lung heart ratio noted to be within normal limits 0.31. No significant extracardiac and abnormal radiotracer activities were noted. RV free wall uptake was noted to be WNL. IMPRESSION: Also refer to comments under nuclear interpretation. Also test results needs to be interpreted in the context of pretest probability. 1. No definitive areas of transient perfusion defect noted. Images were somewhat difficult to interpret because of attenuation artifact. Clinical correlation is also requested. 2. There is no definitive scintigraphic evidence of myocardial infarction/scar. 3. EKG gated imaging shows left ventricular ejection fraction of approx. 46 %. 4. Clinical correlation requested as occasionally single vessel disease or balanced ischemia could be missed. In approximately 10% of the cases Lexiscan may not cause adequate vasodilatory stress. RECOMMENDATIONS: Aggressive risk factor modification and medical management. Further evaluation may be needed if continued symptoms or other high risk indicators are noted on clinical evaluation. Close cardiology follow-up is also recommended. Clinical correlation with echocardiogram derived ejection fraction. Inability to exercise by itself can lead to increased cardiovascular event risks. Consider cardiology consultation and or follow-up if clinically indicated. I am available for cardiology evaluation and consultation if requested by the chief librarian music department, unless patient already has a portainer operator. JAMEL
--- NOTE | 2017-06-09 14:50 | PDOC DISCHARGE SUMMARY ---
General - Admit/Disc Date/PCP Admission Date/Primary Care Provider: 06/07/17 11:13 Discharge Date: 06/09/17 - Discharge Diagnosis (1) Chest pain Is this a current diagnosis for this admission?: Yes (2) Coronary artery disease Is this a current diagnosis for this admission?: Yes (3) Chronic kidney disease, stage IV (severe) Is this a current diagnosis for this admission?: Yes (4) Type 2 diabetes mellitus Is this a current diagnosis for this admission?: Yes - Additional Information Resuscitation Status: Full Code Home Medications: Aspirin [Aspirin 81 mg Chewable Tablet] 81 mg PO DAILY 07/18/15 Carvedilol [Coreg 12.5 mg Tablet] 12.5 mg PO Q12 07/18/15 Famotidine 20 mg PO BID 07/18/15 Furosemide [Lasix] 40 mg PO QAM 07/18/15 Levothyroxine Sodium 88 mcg PO Q6AM 07/18/15 Linagliptin [Tradjenta] 5 mg PO DAILY 07/18/15 Rosuvastatin Calcium [Crestor 20 mg Tablet] 20 mg PO QHS 07/18/15 Amlodipine Besylate [Norvasc 5 mg Tablet] 5 mg PO DAILY 06/07/17 Insulin Glargine,Hum.rec.anlog [Lantus Insulin 100 Unit/mL] 10 units SUBCUT DAILY MDD SEE PATIENT COMMENTS 06/07/17 Losartan Potassium [Cozaar 100 mg Tablet] 100 mg PO DAILY 06/07/17 Nitroglycerin [Nitrostat 0.4 mg (1/150 Gr) Tabs 25/Bottle] 1 tab SL Q5MP PRN History of Present Illness History of Present Illness: MYRA RODRIGUEZ is a 77 year old female, She has a history of coronary artery disease status post coronary artery bypass grafting, type 2 diabetes mellitus, chronic kidney disease stage IV, sedentary lifestyle she came to the office today for follow-up appointment, she complained of chest pressure she stated " it feels like there is a man on my chest", she has these symptoms for the last few days, in the office a 12-lead EKG was done, it was sinus rhythm with inverted T-wave in lateral leads because the symptom is very suspicious for ischemia and the fact that she does have a history of CAD with coronary artery bypass it was felt that the best plan of care for this patient at this time is to admit her to the hospital for further evaluation and to rule out acute coronary syndrome Hospital Course Hospital Course: She was admitted for further evaluation of chest pain in the setting of coronary artery disease. Serial cardiac enzymes were negative for acute FL she underwent Cardiolite significant stress test, it was negative for any reversible ischemia or any scar to suggest FL. She was seen in consultation by cardiology Dr. Arellano Physical Exam Vital Signs: Temp Pulse Resp BP Pulse Ox 98.0 F 64 18 165/79 H 100 06/09/17 11:31 06/09/17 11:31 06/09/17 11:31 06/09/17 11:31 06/09/17 11:31 Intake & Output 06/08/17 06/09/17 06/10/17 06:59 06:59 06:59 Intake Total 754 774 Output Total 100 Balance 754 674 Weight 69.1 kg 65.7 kg General appearance: PRESENT: no acute distress, well-developed, well-nourished Head exam: PRESENT: atraumatic, normocephalic Eye exam: PRESENT: conjunctiva pink, EOMI, PERRLA Ear exam: PRESENT: normal external ear exam Mouth exam: PRESENT: moist, tongue midline Neck exam: PRESENT: full ROM Cardiovascular exam: PRESENT: RRR, +S1, +S2 Vascular exam: PRESENT: normal capillary refill GI/Abdominal exam: PRESENT: normal bowel sounds, soft Rectal exam: PRESENT: deferred Neurological exam: PRESENT: alert, awake, oriented to person, oriented to place , oriented to time, oriented to situation, CN II-XII grossly intact Psychiatric exam: PRESENT: appropriate affect, normal mood Skin exam: PRESENT: dry, intact, warm Results Laboratory Results: 06/07/17 13:36 06/07/17 13:36 06/07/17 06/07/17 06/07/17 13:36 13:36 19:55 Creatine Kinase 96 95 CK-MB (CK-2) 1.39 Troponin I < 0.012 06/07/17 06/08/17 06/08/17 19:55 04:12 04:12 Creatine Kinase 79 CK-MB (CK-2) 1.26 0.90 Troponin I < 0.012 < 0.012 Qualifiers - * PATIENT BEING DISCHARGED WITH ANY OF THE FOLLOWING DIAGNOSIS: No
[2017-06-09 15:59] VITALS: BP 172/50
--- NOTE | 2017-06-09 18:32 | XCELERA REPORT ---
[address] [address] Transthoracic Echocardiogram Report Name: MYRA RODRIGUEZ Age: 77 yrs Gender: Female : 1940 Patient Status: Inpatient Patient Location: [address] [place], [place] [address] Study Date: 06/09/2017 01:41 PM Height: 67 in Weight: 147 lb BSA: 1.8 m2 Procedure: A complete two-dimensional transthoracic echocardiogram was performed (2D, M-mode, spectral and color flow Doppler). The study was technically difficult with many images being suboptimal in quality. Reason For Study: CP, CAD Ordering Physician: MICHELLE AMAYA Performed By: Sumaya Campbell Interpretation Summary LV EF is 50% Left ventricular systolic function is borderline reduced. Doppler measurements suggest pseudonormalized left ventricular relaxation, which is associated with grade II/IV or mild to moderate diastolic dysfunction There is mild concentric left ventricular hypertrophy. The left ventricle is grossly normal size. Wall motion cannot be accurately commented on, but no definite regional wall motion abnormalities noted. The right ventricular systolic function is normal. The left atrial size is normal. The right atrium is normal in size There is mild to moderate mitral stenosis MV area 1.8 cmsq There is a mild amount of mitral regurgitation There is moderate to severe aortic stenosis There is a peak gradient of 53, mean 39 mm of Hg. No aortic regurgitation is present. There is a trace or physiologic amount of tricuspid regurgitation The aortic root is not well visualized but is probably normal size. The inferior vena cava appeared normal and decreased > 50% with respiration (RAP 5-10 mmHg) There is no pericardial effusion. MMode/2D Measurements & Calculations RVDd: 1.6 cm LVIDd: 4.4 cm FS: 24.4 % Ao root diam: 2.7 cm IVSd: 1.1 cm LVIDs: 3.3 cm EDV(Teich): 88.5 ml LVPWd: 1.1 cm ESV(Teich): 45.5 ml Ao root area: 5.8 cm2 EF(Teich): 48.6 % LVOT diam: 2.2 cm LVOT area: 3.7 cm2 Doppler Measurements & Calculations MV E max keysha: MV dec slope: Ao V2 max: LV V1 max P.0 cm/sec 192.4 cm/sec2 363.8 cm/sec 1.9 mmHg MV A max keysha: MV dec time: Ao max PG: LV V1 mean P.6 cm/sec 0.42 sec 52.9 mmHg 0.99 mmHg MV E/A: 0.77 Ao V2 mean: LV V1 max: 298.8 cm/sec 69.2 cm/sec Ao mean PG: LV V1 mean: 38.6 mmHg 45.9 cm/sec Ao V2 VTI: 97.8 cmLV V1 VTI: RUDDY(I,D): 0.72 cm218.9 cm RUDDY(V,D): 0.71 cm2 SV(LVOT): 70.2 ml PA V2 max: PI end-d keysha: TR max keysha: 89.7 cm/sec 117.2 cm/sec 204.0 cm/sec PA max P.2 mmHg TR max P.3 mmHg Left Ventricle The left ventricle is grossly normal size. There is mild concentric left ventricular hypertrophy. Left ventricular systolic function is borderline reduced. LV EF is 50%. Doppler measurements suggest pseudonormalized left ventricular relaxation, which is associated with grade II/IV or mild to moderate diastolic dysfunction. Wall motion cannot be accurately commented on, but no definite regional wall motion abnormalities noted. Right Ventricle The right ventricle is grossly normal size. There is normal right ventricular wall thickness. The right ventricular systolic function is normal. Atria The right atrium is normal in size. The left atrial size is normal. Interarterial septum not well visualized and not well dopplered. Cannot comment on ASD/PFO presence. Mitral Valve There is moderate mitral annular calcification. There is mild mitral leaflet calcification. There is mild to moderate mitral stenosis. MV area 1.8 cmsq. There is a mild amount of mitral regurgitation. Aortic Valve The aortic valve is heavily calcified. There is moderate to severe aortic stenosis. There is a peak gradient of 53, mean 39 mm of Hg. No aortic regurgitation is present. Tricuspid Valve The tricuspid valve is not well visualized secondary to technical limitations. There is no tricuspid stenosis. There is a trace or physiologic amount of tricuspid regurgitation. Pulmonic Valve The pulmonic valve is not well visualized. Great Vessels The aortic root is not well visualized but is probably normal size. The inferior vena cava appeared normal and decreased > 50% with respiration (RAP 5-10 mmHg). Effusions There is no pericardial effusion. : MICHELLE AMAYA > Michelle Amaya
--- NOTE | 2017-06-09 20:10 | PDOC PROGRESS REPORT ---
Subjective Progress Note for:: 06/09/17 Subjective:: Patient seems to be doing better. Cardiac enzymes have come back negative. Pt is denying any chest arm or neck discomfort. Patient denying any PND, orthopnea. Patient denied any sustained palpitations, dizziness, syncope, near syncope. Patient denying any fever chills. Patient denying any other significant discomfort. Patient underwent nuclear stress test today. Nuclear stress test procedure, risk benefits were discussed with her in detail. Patient gave informed consent. Patient is maintaining sinus rhythm. Review of systems: Rest review of systems negative. Medications: Medications have been reviewed. Reason For Visit: CHEST PRESSURE Physical Exam Vital Signs: Temp Pulse Resp BP Pulse Ox 98.0 F 65 18 172/50 H 100 06/09/17 15:58 06/09/17 15:58 06/09/17 15:58 06/09/17 15:58 06/09/17 15:58 Intake & Output 06/08/17 06/09/17 06/10/17 06:59 06:59 06:59 Intake Total 754 774 Output Total 100 Balance 754 674 Weight 69.1 kg 65.7 kg Exam: GENERAL: well-nourished and in no acute distress. Alert and oriented x3 HEAD: Atraumatic, normocephalic. EYES: Pupils equal round and reactive to light, extraocular movements intact, sclera anicteric, conjunctiva are normal. ENT: TMs normal, nares patent, oropharynx clear without exudates. Moist mucous membranes. No oral ulcerations or bleeding gums noted NECK: supple without lymphadenopathy. Trachea is central. No cervical or axillary lymphadenopathy noted. Carotids are 2+, JVD WNL LUNGS: Respiration seems nonlabored, no significant accessory muscle action noted. Breath sounds clear to auscultation bilaterally and equal noted. No wheezes rales or rhonchi noted. No significant dullness noted on percussion. CHEST: Palpation of the chest wall shows no significant chest wall tenderness. 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 ABDOMEN: Soft, no significant tenderness appreciated, normoactive bowel sounds. No guarding, no rebound. No rigidity noted . No masses appreciated. EXTREMITIES: Pedal pulses are 1-2+, no calf tenderness noted. No clubbing or cyanosis. negative pedal edema noted NEUROLOGICAL: Focused neurological exam showed no significant neurologic deficit. Normal speech, no focal weakness appreciated. PSYCH: Normal mood, normal affect. Judgment and insight within normal limits. SKIN: No significant ecchymosis, skin is noted to be warm. MUSCULOSKELETAL EXAM: No significant acute joint swelling noted. Results Laboratory Results: 06/07/17 13:36 06/07/17 13:36 06/07/17 06/07/17 06/07/17 13:36 13:36 19:55 Creatine Kinase 96 95 CK-MB (CK-2) 1.39 Troponin I < 0.012 06/07/17 06/08/17 06/08/17 19:55 04:12 04:12 Creatine Kinase 79 CK-MB (CK-2) 1.26 0.90 Troponin I < 0.012 < 0.012 EKG Comments: Sinus rhythm without any sustained tachycardia or bradycardia noted. Assessment & Plan - Diagnosis (1) Chest pain Qualifiers: Chest pain type: precordial pain Qualified Code(s): R07.2 - Precordial pain Is this a current diagnosis for this admission?: Yes (2) Hypertension Qualifiers: Hypertension type: essential hypertension Qualified Code(s): I10 - Essential (primary) hypertension Is this a current diagnosis for this admission?: Yes (3) Hyperlipidemia Qualifiers: Hyperlipidemia type: unspecified Qualified Code(s): E78.5 - Hyperlipidemia , unspecified Is this a current diagnosis for this admission?: Yes (4) Chronic kidney disease, stage IV (severe) Is this a current diagnosis for this admission?: Yes (5) Coronary artery disease Qualifiers: Coronary Disease-Associated Artery/Lesion type: unspecified vessel or lesion type [place] vs. transplanted heart: [place] heart Associated angina: angina presence unspecified Qualified Code(s): I25.10 - Atherosclerotic heart disease of [place] coronary artery without angina pectoris Is this a current diagnosis for this admission?: Yes (6) Type 2 diabetes mellitus Qualifiers: Diabetes mellitus long-term insulin use: with salvage determiner use Diabetes mellitus complication status: with kidney complications Diabetes mellitus complication detail: with chronic kidney disease Chronic kidney disease stage : stage 3 (moderate) Qualified Code(s): E11.22 - Type 2 diabetes mellitus with diabetic chronic kidney disease; N18.3 - Chronic kidney disease, stage 3 ( moderate); N18.3 - Chronic kidney disease, stage 3 (moderate); Z79.4 - termite renewal inspector (current) use of insulin; Z79.4 - termite renewal inspector (current) use of insulin; Z79.4 - [facility] (current) use of insulin; Z79.4 - termite renewal inspector (current) use of insulin Is this a current diagnosis for this admission?: Yes - Notes Notes: Chest pain: Patient has known CAD, also has nonspecific T-wave inversion. This was evaluated by a 2D echocardiogram and a nuclear stress test. 2D echocardiogram shows moderate to severe aortic stenosis and mild to moderate mitral regurgitation. Nuclear stress test did not show any definitive areas of ischemia. Coronary artery disease: Patient is status post coronary artery bypass graft surgery. Cardiac enzymes has all been negative. EKG changes could be LVH related. In addition patient noted to have moderate to severe aortic stenosis and also LVH on echocardiogram. At this time recommend optimization of medical management. Patient will need close follow-up of aortic valve disease. Hyperlipidemia: Recommend high potency statin therapy. LDL goal is less than 70. Hypertension: Reasonably well controlled. Blood pressure goal in this patient is 135/85 or less. This was discussed with the patient. Currently blood pressure under reasonable control. Better medication for this patient are TIM inhibitor/ARB/beta akhil etc. discussed side effects of uncontrolled hypertension and also severe hypotension. Diabetes: Recommend good control of blood sugar. However should avoid any hypoglycemia and hyperglycemia. Patient being expertly managed by primary care M.D/hospitalist . - Time Time with patient: Greater than 35 minutes - Patient was seen multiple times. Results of tests discussed. Patient will benefit from cardiology follow-up. Medications reviewed and adjusted accordingly: Yes
== END 2017-06-09 16:13 | disposition home or self-care (01) ==
LOC: 3W 11:13
PROVIDERS: ADMIT Internal Medicine; ATTEND Internal Medicine
DX: R07.89 Other chest pain (principal); I25.10 Atherosclerotic heart disease of native coronary artery without angina pectoris; E11.22 Type 2 diabetes mellitus with diabetic chronic kidney disease; I12.9 Hypertensive chronic kidney disease with stage 1 through stage 4 chronic kidney disease, or unspecified chronic kidney disease; N18.4 Chronic kidney disease, stage 4 (severe); E78.5 Hyperlipidemia, unspecified; E11.49 Type 2 diabetes mellitus with other diabetic neurological complication; E11.39 Type 2 diabetes mellitus with other diabetic ophthalmic complication; I25.2 Old myocardial infarction; Z79.4 Long term (current) use of insulin; Z79.82 Long term (current) use of aspirin; Z95.1 Presence of aortocoronary bypass graft; Z82.49 Family history of ischemic heart disease and other diseases of the circulatory system
CPT/HCPCS: 36415 ×2; 82553 ×2; 82962 ×2; 82550 ×2; 85025; 80076; 80048; 84484 ×2; 93306; 93017; 78452; 93005; 93010; G0378 ×3; G0379; A9500; J2785; A9270 ×18; J0280; Q9969; J1815

== ENCOUNTER 2017-06-29 17:42 | Inpatient (IN) | payer MEDICARE, MEDICAID ==
[2017-06-29] MEDS ORDERED: ASPIRIN 81 MG TABLET, CHEWABLE PO ONE (18:30)
[2017-06-29] MEDS ORDERED: NITROGLYCERIN 2% OINTMENT 1 GM PACKET TP ONE (18:32)
[2017-06-29] MEDS ORDERED: NITROGLYCERIN 0.4 MG/TAB 25 TAB/BOTTLE SL PRN (18:32)
--- NOTE | 2017-06-29 18:32 | ER Document Report ---
ED Medical Screen (RME) - General Chief Complaint: Shortness Of Breath Stated Complaint: BREATHING PROBLEM Time Seen by Provider: 06/29/17 18:25 Notes: RAPID MEDICAL EVALUATION DISCLOSURE I have seen this patient as part of a Rapid Medical Evaluation and, if applicable, placed any initially appropriate orders. The patient will be seen and fully evaluated, including a full history and physical exam, by a provider ( in Main ED or Fast Track) when a room becomes available. 77-year-old female here with complaints of left-sided chest pressure radiating up to the left shoulder and arm along with shortness of breath ongoing for the past few days but progressively worsening. The symptoms are worse with exertion. Symptoms improved with nitroglycerin. She took one sublingual nitroglycerin several hours ago that did provide the relief. She came in today for evaluation. EXAM CTAB RRR TRAVEL OUTSIDE OF THE [place] IN LAST 30 DAYS: No - Related Data Allergies/Adverse Reactions: ezetimibe [From Zetia] Allergy (Verified 06/29/17 18:21) lactose [Lactose] Allergy (Verified 06/29/17 18:21) Past Medical History - Past Medical History Cardiac Medical History: Reports: Hx Coronary Artery Disease, Hx Heart Attack, Hx Hypercholesterolemia, Hx Hypertension Denies: Hx Congestive Heart Failure Pulmonary Medical History: Reports: Hx Pneumonia Denies: Hx Asthma, Hx Bronchitis, Hx COPD, Hx Tuberculosis Neurological Medical History: Denies: Hx Seizures Endocrine Medical History: Reports: Hx Diabetes Mellitus Type 2 Renal/ Medical History: Denies: Hx End Stage Renal Disease, Hx Kidney Stones GI Medical History: Reports: Hx Gastritis. Denies: Hx Cirrhosis, Hx Gastroesophageal Reflux Disease, Hx Ulcer Musculoskeltal Medical History: Reports Hx Arthritis, Denies Hx Multiple Sclerosis Psychiatric Medical History: Denies: Hx Bipolar Disorder, Hx Depression, Hx Schizophrenia Past Surgical History: Reports: Hx Cardiac Surgery - stents, Hx Coronary Artery Bypass Graft, Hx Hysterectomy - Immunizations Immunizations up to date: Yes History of Influenza Vaccine for 11/2016 - 04/2017 Season: No Physical Exam - Vital signs Vitals: Temp Pulse Resp BP Pulse Ox 98.0 F 68 16 190/80 H 100 06/29/17 17:52 06/29/17 17:52 06/29/17 17:52 06/29/17 17:52 06/29/17 17:52 Course - Vital Signs Vital signs: Temp Pulse Resp BP Pulse Ox 98.0 F 68 16 190/80 H 100 06/29/17 17:52 06/29/17 17:52 06/29/17 17:52 06/29/17 17:52 06/29/17 17:52
[2017-06-29 19:16] LABS: ABSOLUTE BASOPHILS # (AUTO) 0.1 10^3/uL (0.0-0.2); ABSOLUTE EOSINOPHILS # (AUTO) 0.2 10^3/uL (0.0-0.6); ABSOLUTE LYMPHOCYTES (AUTO) 2.9 10^3/uL (0.5-4.7); ABSOLUTE MONOCYTES (AUTO) 0.8 10^3/uL (0.1-1.4); ABSOLUTE NEUT (AUTO) 3.3 10^3/uL (1.7-8.2); BASOPHILS % (AUTO) 1.1 % (0-2); EOSINOPHILS % (AUTO) 2.2 % (0-6); HEMATOCRIT 36.7 % (36.0-47.0); HEMOGLOBIN 12.1 g/dL (12.0-15.5); LYMPHOCYTES % (AUTO) 40.1 % (13-45); MEAN CORPUSCULAR HEMOGLOBIN 28.6 pg (27.0-33.4); MEAN CORPUSCULAR HGB CONC 33.1 g/dL (32.0-36.0); MEAN CORPUSCULAR VOLUME 86 fl (80-97); MONOCYTES % (AUTO) 11.1 % (3-13); PLATELET COUNT 140 10^3/uL (150-450); RED BLOOD COUNT 4.25 10^6/uL (3.72-5.28); RED CELL DISTRIBUTION WIDTH 13.8 % (11.5-14.0); SEGMENTED NEUTROPHILS % (AUTO) 45.5 % (42-78); TOTAL CELLS COUNTED % (AUTO) 100 %; WHITE BLOOD COUNT 7.3 10^3/uL (4.0-10.5)
[2017-06-29 19:29] LABS: ALANINE AMINOTRANSFERASE 15 U/L (9-52); ALKALINE PHOSPHATASE 76 U/L (38-126); ANION GAP 14 (5-19); ASPARTATE AMINO TRANSFERASE 20 U/L (14-36); BILIRUBIN,DIRECT 0.2 mg/dL (0.0-0.4); BILIRUBIN,TOTAL 0.2 mg/dL (0.2-1.3); BLOOD UREA NITROGEN 38 mg/dL (7-20); CALCIUM 9.5 mg/dL (8.4-10.2); CARBON DIOXIDE 27 mmol/L (22-30); CHLORIDE 106 mmol/L (98-107); GLUCOSE 102 mg/dL (75-110); POTASSIUM 3.9 mmol/L (3.6-5.0); SODIUM 147.1 mmol/L (137-145); TOTAL PROTEIN 7.8 g/dL (6.3-8.2)
--- NOTE | 2017-06-29 19:32 | RADIOLOGY REPORT (SQ) ---
EXAM DESCRIPTION: CHEST 2 VIEWS COMPLETED DATE/TIME: 06/29/2017 6:46 pm REASON FOR STUDY: CP SOB COMPARISON: 07/17/2015 EXAM PARAMETERS: NUMBER OF VIEWS: two views TECHNIQUE: Digital Frontal and Lateral radiographic views of the chest acquired. RADIATION DOSE: NA LIMITATIONS: none FINDINGS: LUNGS AND PLEURA: No acute opacities, masses or pneumothorax. No pleural effusion. MEDIASTINUM AND HILAR STRUCTURES: Stable. HEART AND VASCULAR STRUCTURES: Stable. BONES: No acute findings. HARDWARE: Sternotomy -CABG- valve replacement. OTHER: No other significant finding. IMPRESSION: NO ACUTE RADIOGRAPHIC FINDING IN THE CHEST. TECHNICAL DOCUMENTATION: JOB ID: [id number] [place]-72 2010 [employer]- All Rights Reserved Reading location - IP/workstation name: [email or web address]
[2017-06-29 19:40] LABS: TROPONIN I 0.015 ng/mL
--- NOTE | 2017-06-29 20:09 | ER Document Report ---
ED General - General Chief Complaint: Shortness Of Breath Stated Complaint: BREATHING PROBLEM Time Seen by Provider: 06/29/17 18:25 Mode of Arrival: Ambulatory Information source: Patient Notes: This is a 77-year-old female with a history of coronary artery disease (CABG in the past), who presents to the emergency room with dyspnea on exertion, shortness of breath and chest heaviness. Patient states that she has had the discomfort intermittently but it seems to be worse over the last few days. TRAVEL OUTSIDE OF THE [place] IN LAST 30 DAYS: No - HPI Onset: Last week Onset/Duration: Gradual Quality of pain: No pain Severity: None Pain Level: Denies Associated symptoms: denies: Chills, Fever Exacerbated by: Denies Relieved by: Denies Similar symptoms previously: Yes Recently seen / treated by doctor: Yes - Related Data Allergies/Adverse Reactions: ezetimibe [From Zetia] Allergy (Verified 06/29/17 18:21) lactose [Lactose] Allergy (Verified 06/29/17 18:21) Past Medical History - General Information source: Patient - Social History Smoking Status: Never Smoker Cigarette use (# per day): No Chew tobacco use (# tins/day): No Frequency of alcohol use: None Drug Abuse: None Lives with: Family Family History: Reviewed & Not Pertinent Patient has suicidal ideation: No Patient has homicidal ideation: No - Past Medical History Cardiac Medical History: Reports: Hx Coronary Artery Disease, Hx Heart Attack, Hx Hypercholesterolemia, Hx Hypertension Denies: Hx Congestive Heart Failure Pulmonary Medical History: Reports: Hx Pneumonia Denies: Hx Asthma, Hx Bronchitis, Hx COPD, Hx Tuberculosis Neurological Medical History: Denies: Hx Seizures Endocrine Medical History: Reports: Hx Diabetes Mellitus Type 2 Renal/ Medical History: Denies: Hx End Stage Renal Disease, Hx Kidney Stones, Hx Peritoneal Dialysis GI Medical History: Reports: Hx Gastritis. Denies: Hx Cirrhosis, Hx Gastroesophageal Reflux Disease, Hx Ulcer Musculoskeltal Medical History: Reports Hx Arthritis, Denies Hx Multiple Sclerosis Psychiatric Medical History: Denies: Hx Bipolar Disorder, Hx Depression, Hx Schizophrenia Past Surgical History: Reports: Hx Cardiac Surgery - stents, Hx Coronary Artery Bypass Graft, Hx Hysterectomy, Hx Open Heart Surgery - Immunizations Immunizations up to date: Yes Hx Pneumococcal Vaccination: 02/15/14 Review of Systems - Review of Systems Constitutional: denies: Chills, Fever EENT: No symptoms reported Cardiovascular: See HPI Respiratory: See HPI Gastrointestinal: No symptoms reported Genitourinary: No symptoms reported Female Genitourinary: No symptoms reported Musculoskeletal: No symptoms reported Skin: No symptoms reported Hematologic/Lymphatic: No symptoms reported Neurological/Psychological: No symptoms reported Physical Exam - Vital signs Vitals: Temp Pulse Resp BP Pulse Ox 98.0 F 68 16 190/80 H 100 06/29/17 17:52 06/29/17 17:52 06/29/17 17:52 06/29/17 17:52 06/29/17 17:52 Notes: Physical exam: GENERAL: A 7-year-old female, alert and oriented 3, no acute distress HEAD: Atraumatic, normocephalic. EYES: Pupils equal round and reactive to light, extraocular movements intact, sclera anicteric, conjunctiva are normal. ENT: TMs normal, nares patent, oropharynx clear without exudates. Moist mucous membranes. NECK: Normal range of motion, supple without obvious mass or JVD. LUNGS: Breath sounds clear to auscultation bilaterally and equal. No wheezes rales or rhonchi. HEART: 3/6 systolic murmur at the left lateral sternal border ABDOMEN: Soft, normoactive bowel sounds. No tenderness to palpation. No guarding, no rebound. No masses appreciated. EXTREMITIES: Normal range of motion, no pitting or edema. No clubbing or cyanosis. NEUROLOGICAL: Cranial nerves II through XII grossly intact. Normal speech, moving all extremities. PSYCH: Normal mood, normal affect. SKIN: Warm, Dry, normal turgor, no rashes or lesions noted. Course - Re-evaluation Re-evalutation: 06/29/17 20:22 Patient did have recent stress test which was negative for ischemia. I did discuss the case with Dr. Gore. She does have a large systolic murmur. We will bring the patient in for observation. I do not see an echo in the previous studies but there may have been one recent (the patient was unsure). - Vital Signs Vital signs: Temp Pulse Resp BP Pulse Ox 97.8 F 65 20 126/69 H 100 06/29/17 23:45 06/29/17 23:45 06/29/17 23:45 06/29/17 23:45 06/29/17 23:45 - Laboratory Result Diagrams: 06/29/17 19:02 06/29/17 19:02 Laboratory results interpreted by me: 06/29/17 06/29/17 06/29/17 19:02 19:02 19:02 Plt Count 140 L Sodium 147.1 H BUN 38 H Creatinine 2.51 H Est GFR ( Amer) 23 L Est GFR (Non-Af Amer) 19 L NT-Pro-B Natriuret Pep 6070 H - Diagnostic Test Radiology reviewed: Image reviewed, Reports reviewed - X-ray shows no infiltrates - EKG Interpretation by Me Rate: Normal Rhythm: NSR - EKG shows normal sinus rhythm with a ventricular rate of 73, inverted T's 1, L, V4 through V6. No significant changes from EKG 06/07/2017 Discharge - Discharge Clinical Impression: Chest pain Condition: Stable Disposition: ADMITTED OBSERVATION Admitting Provider: [facility] Admitted: Telemetry
--- NOTE | 2017-06-29 21:20 | EKG REPORT ---
SEVERITY:- ABNORMAL ECG - SINUS RHYTHM LEFT ANTERIOR FASCICULAR BLOCK LVH WITH SECONDARY REPOLARIZATION ABNORMALITY : Confirmed by: Michelle Arellano 29-Jun-2017 21:19:28
[2017-06-29] MEDS ORDERED: NITROGLYCERIN 0.6 MG SL PRN (22:05)
[2017-06-29] MEDS ORDERED: GLUCAGON,HUMAN RECOMB 1 MG INJ IM PRN (22:06)
[2017-06-29] MEDS ORDERED: DEXTROSE 40% GEL 15 GM TUBE PO PRN ×2 (22:06)
[2017-06-29] MEDS ORDERED: DEXTROSE 50%-WATER 25 GM/50 ML DISP.SYRIN IV PRN ×2 (22:06)
[2017-06-29] MEDS ORDERED: AMLODIPINE BESYLATE 5 MG TABLET PO ONE (22:15)
[2017-06-29] MEDS ORDERED: ATORVASTATIN CALCIUM 40 MG TABLET PO ONE (22:15)
[2017-06-29] MEDS ORDERED: LOSARTAN POTASSIUM 50 MG TABLET PO ONE (22:15)
[2017-06-29] MEDS ORDERED: FAMOTIDINE 20 MG TABLET PO ONE (22:15)
[2017-06-29] MEDS ORDERED: CARVEDILOL 12.5 MG TABLET PO ONE (23:00)
[2017-06-29] MEDS ORDERED: LEVOTHYROXINE SODIUM 0.088 MG TABLET PO ONE (23:00)
[2017-06-30 01:24] LABS: CREATINE KINASE MB 1.22 ng/mL (<4.55); TROPONIN I 0.023 ng/mL
[2017-06-30] MEDS ORDERED: NITROGLYCERIN 0.4 MG/TAB 25 TAB/BOTTLE SL PRN (02:18)
[2017-06-30] MEDS ORDERED: LEVOTHYROXINE SODIUM 0.088 MG TABLET PO SCH ×2 (06:00→10:00)
[2017-06-30] MEDS ORDERED: FUROSEMIDE 40 MG TABLET PO SCH (08:00)
[2017-06-30 08:05] LABS: CHOLESTEROL 224.48 mg/dL (0-200); TRIGLYCERIDES 52 mg/dL (<150)
[2017-06-30 08:16] LABS: DIRECT LDL 108 mg/dL (<100)
[2017-06-30 08:17] LABS: CREATINE KINASE MB 1.05 ng/mL (<4.55); TROPONIN I 0.02 ng/mL
[2017-06-30] MEDS: CARVEDILOL 12.5 MG TABLET PO SCH ×2 (09:17→22:16)
[2017-06-30] MEDS: ATORVASTATIN CALCIUM 40 MG TABLET PO SCH (09:17)
[2017-06-30] MEDS: LOSARTAN POTASSIUM 50 MG TABLET PO SCH (09:17)
[2017-06-30] MEDS: FAMOTIDINE 20 MG TABLET PO SCH ×2 (09:17→22:13)
[2017-06-30] MEDS ORDERED: AMLODIPINE BESYLATE 5 MG TABLET PO SCH (10:00)
[2017-06-30] MEDS: FUROSEMIDE INJ/PF 20 MG/2 ML SDV IV SCH (11:55)
[2017-06-30] MEDS ORDERED: ISOSORBIDE MONONITRATE 60 MG TAB.ER.24H PO SCH (12:00)
[2017-06-30 14:24] LABS: CREATINE KINASE MB 1.09 ng/mL (<4.55); TROPONIN I 0.013 ng/mL
--- NOTE | 2017-06-30 20:38 | PDOC H&P ---
History of Present Illness Admission Date/PCP: 06/29/17 20:17 History of Present Illness: MYRA RODRIGUEZ is a 77 year old female,She came to the emergency room for evaluation of chest pressure, shortness of breath, she has a history of coronary artery disease status post CABG aortic valve stenosis, type II diabetes mellitus complicated with chronic kidney disease stage IV she was just recently admitted in this hospital and was discharged on 06/09/2017 for evaluation of chest pressure, at the time she had a nuclear stress test was negative she also a 2D echo showed aortic valve stenosis Past Medical History Cardiac Medical History: Reports: Coronary Artery Disease, Myocardial Infarction , Hyperlipidema, Hypertension Pulmonary Medical History: Reports: Pneumonia Endocrine Medical History: Reports: Diabetes Mellitus Type 2 Musculoskeltal Medical History: Reports: Arthritis Past Surgical History Past Surgical History: Reports: Coronary Artery Bypass Graft, Hysterectomy Social History Lives with: Family Smoking Status: Never Smoker Frequency of Alcohol Use: None Hx Recreational Drug Use: No Drugs: None Hx Prescription Drug Abuse: No Family History Family History: Reviewed & Not Pertinent Parental Family History Reviewed: Yes Children Family History Reviewed: Yes Sibling(s) Family History Reviewed.: Yes Medication/Allergy Home Medications: Amlodipine Besylate [Norvasc 5 mg Tablet] 5 mg PO DAILY 06/29/17 Carvedilol [Coreg 12.5 mg Tablet] 12.5 mg PO Q12 06/29/17 Famotidine [Pepcid] 20 mg PO Q12 06/29/17 Furosemide [Lasix 40 mg Tablet] 40 mg PO QAM 06/29/17 Levothyroxine Sodium [Synthroid 0.088 mg Tablet] 0.088 mg PO DAILY 06/29/17 Losartan Potassium [Cozaar 100 mg Tablet] 100 mg PO DAILY 06/29/17 Nitroglycerin [Nitrostat] 0.6 mg SL Q5MP PRN 06/29/17 Rosuvastatin Calcium [Crestor 20 mg Tablet] 20 mg PO DAILY 06/29/17 Allergies/Adverse Reactions: ezetimibe [From Zetia] Allergy (Verified 06/29/17 18:21) lactose [Lactose] Allergy (Verified 06/29/17 18:21) Review of Systems Constitutional: ABSENT: chills, fever(s), headache(s), weight gain, weight loss Eyes: ABSENT: visual disturbances Ears: ABSENT: hearing changes Cardiovascular: PRESENT: chest pain. ABSENT: dyspnea on exertion, edema, orthropnea, palpitations Respiratory: ABSENT: cough, hemoptysis Gastrointestinal: ABSENT: abdominal pain, constipation, diarrhea, hematemesis, hematochezia, nausea, vomiting Genitourinary: ABSENT: dysuria, hematuria Musculoskeletal: ABSENT: joint swelling Integumentary: ABSENT: rash, wounds Neurological: ABSENT: abnormal gait, abnormal speech, confusion, dizziness, focal weakness, syncope Psychiatric: ABSENT: anxiety, depression, homidical ideation, suicidal ideation Endocrine: ABSENT: cold intolerance, heat intolerance, menstrual abnormalities, polydipsia, polyuria Hematologic/Lymphatic: ABSENT: easy bleeding, easy bruising, lymphadenopathy Physical Exam Vital Signs: Temp Pulse Resp BP Pulse Ox 97.4 F 62 16 123/63 100 06/30/17 20:28 06/30/17 20:28 06/30/17 20:28 06/30/17 16:22 06/30/17 20:28 Intake & Output 06/29/17 06/30/17 07/01/17 06:59 06:59 06:59 Intake Total 208 1126 Output Total 0 Balance 208 1126 Weight 68.1 kg General appearance: PRESENT: no acute distress, well-developed, well-nourished Head exam: PRESENT: atraumatic, normocephalic Eye exam: PRESENT: conjunctiva pink, EOMI, PERRLA Ear exam: PRESENT: normal external ear exam Mouth exam: PRESENT: moist, tongue midline Neck exam: PRESENT: full ROM Respiratory exam: PRESENT: clear to auscultation saqib Cardiovascular exam: PRESENT: RRR, +S1, +S2 Vascular exam: PRESENT: normal capillary refill GI/Abdominal exam: PRESENT: normal bowel sounds, soft Rectal exam: PRESENT: deferred Neurological exam: PRESENT: alert, awake, oriented to person, oriented to place , oriented to time, oriented to situation, CN II-XII grossly intact Psychiatric exam: PRESENT: appropriate affect, normal mood Skin exam: PRESENT: dry, intact, warm Results Laboratory Results: 06/30/17 07:27 Triglycerides 52 Cholesterol 224.48 H LDL Cholesterol Direct 108 H VLDL Cholesterol 10.0 HDL Cholesterol 85 06/30/17 06/30/17 06/30/17 00:49 07:27 13:30 CK-MB (CK-2) 1.22 1.05 1.09 Troponin I 0.023 0.020 0.013 Impressions: Chest X-Ray 06/29/17 18:30 IMPRESSION: NO ACUTE RADIOGRAPHIC FINDING IN THE CHEST. Assessment & Plan - Diagnosis (1) Chest pain Is this a current diagnosis for this admission?: Yes (2) Chronic kidney disease, stage IV (severe) Is this a current diagnosis for this admission?: Yes (3) Coronary artery disease Qualifiers: Coronary Disease-Associated Artery/Lesion type: [place] artery [place] vs. transplanted heart: [place] heart Associated angina: angina presence unspecified Qualified Code(s): I25.10 - Atherosclerotic heart disease of [place] coronary artery without angina pectoris Is this a current diagnosis for this admission?: Yes (4) Hyperlipidemia Qualifiers: Is this a current diagnosis for this admission?: Yes (5) Hypertension Qualifiers: Hypertension type: essential hypertension Is this a current diagnosis for this admission?: Yes (6) Type 2 diabetes mellitus Qualifiers: Diabetes mellitus terminologist insulin use: with shelter use Diabetes mellitus complication status: with kidney complications Diabetes mellitus complication detail: with chronic kidney disease Chronic kidney disease stage : stage 4 (severe) Qualified Code(s): E11.22 - Type 2 diabetes mellitus with diabetic chronic kidney disease; N18.4 - Chronic kidney disease, stage 4 (severe ); N18.4 - Chronic kidney disease, stage 4 (severe); N18.4 - Chronic kidney disease, stage 4 (severe); N18.4 - Chronic kidney disease, stage 4 (severe); Z79.4 - terminologist (current) use of insulin; Z79.4 - senior care (current) use of insulin; Z79.4 - terminologist (current) use of insulin; Z79.4 - senior care (current ) use of insulin
[2017-06-30] MEDS ORDERED: AMLODIPINE BESYLATE 5 MG TABLET PO ONE (22:30)
[2017-07-01] MEDS: FUROSEMIDE INJ/PF 20 MG/2 ML SDV IV SCH ×3 (00:21→23:43)
[2017-07-01] MEDS: LEVOTHYROXINE SODIUM 0.088 MG TABLET PO SCH (06:28)
[2017-07-01 07:04] LABS: FREE T3 2.64 pg/mL (2.77-5.27); FREE T4 (FREE THYROXINE) 1.35 ng/dL (0.78-2.19)
[2017-07-01 07:18] LABS: THYROID STIMULATING HORMONE 3.68 uIU/mL (0.47-4.68)
[2017-07-01] MEDS: LOSARTAN POTASSIUM 50 MG TABLET PO SCH (09:54)
[2017-07-01] MEDS: FAMOTIDINE 20 MG TABLET PO SCH ×2 (09:55→21:34)
[2017-07-01] MEDS: ISOSORBIDE MONONITRATE 60 MG TAB.ER.24H PO SCH (09:55)
[2017-07-01] MEDS: CARVEDILOL 12.5 MG TABLET PO SCH ×2 (09:55→21:40)
[2017-07-01] MEDS: ASPIRIN 325 MG TABLET PO SCH (09:55)
[2017-07-01] MEDS: AMLODIPINE BESYLATE 5 MG TABLET PO SCH ×2 (09:55→21:40)
[2017-07-01] MEDS: ATORVASTATIN CALCIUM 40 MG TABLET PO SCH (09:55)
[2017-07-01] MEDS ORDERED: ISOSORBIDE MONONITRATE 60 MG TAB.ER.24H PO SCH (10:00)
[2017-07-01] MEDS: INSULIN LISPRO 100 UNIT/ML 3 ML VIAL SUBCUT PRN ×2 (11:38→21:37)
[2017-07-01] MEDS: SUCRALFATE 1 GM TABLET PO SCH ×2 (15:56→21:34)
--- NOTE | 2017-07-01 20:58 | PDOC PROGRESS REPORT ---
Subjective Progress Note for:: 07/01/17 Subjective:: She continues to have chest pressure, she has CKD stage IV, contrast coronary angiogram will damage the kidney and she will end up on hemodialysis, she was seen by Dr. Maharaj, cardiology ,2D echo ordered Reason For Visit: CHEST PAIN, , CAD, S/P CABG Physical Exam Vital Signs: Temp Pulse Resp BP Pulse Ox 98.0 F 64 19 94/65 L 98 07/01/17 15:32 07/01/17 19:00 07/01/17 15:32 07/01/17 15:32 07/01/17 15:32 Intake & Output 06/30/17 07/01/17 07/02/17 06:59 06:59 06:59 Intake Total 208 1136 1441 Output Total 0 Balance 208 1136 1441 Weight 68.1 kg 67.1 kg General appearance: PRESENT: no acute distress Eye exam: PRESENT: PERRLA Respiratory exam: PRESENT: clear to auscultation saqib Cardiovascular exam: PRESENT: +S1, +S2 GI/Abdominal exam: PRESENT: soft Neurological exam: PRESENT: alert Results Laboratory Results: 07/01/17 05:41 TSH 3.68 Free T4 1.35 Free T3 pg/mL 2.64 L 06/30/17 06/30/17 06/30/17 00:49 07:27 13:30 CK-MB (CK-2) 1.22 1.05 1.09 Troponin I 0.023 0.020 0.013 Impressions: Chest X-Ray 06/29/17 18:30 IMPRESSION: NO ACUTE RADIOGRAPHIC FINDING IN THE CHEST. Assessment & Plan - Diagnosis (1) Chest pain Is this a current diagnosis for this admission?: Yes (2) Chronic kidney disease, stage IV (severe) Is this a current diagnosis for this admission?: Yes (3) Coronary artery disease Qualifiers: Coronary Disease-Associated Artery/Lesion type: [place] artery [place] vs. transplanted heart: [place] heart Associated angina: angina presence unspecified Qualified Code(s): I25.10 - Atherosclerotic heart disease of [place] coronary artery without angina pectoris Is this a current diagnosis for this admission?: Yes (4) Hyperlipidemia Qualifiers: Is this a current diagnosis for this admission?: Yes (5) Hypertension Qualifiers: Hypertension type: essential hypertension Is this a current diagnosis for this admission?: Yes (6) Type 2 diabetes mellitus Qualifiers: Diabetes mellitus [facility] insulin use: with termite control service representative use Diabetes mellitus complication status: with kidney complications Diabetes mellitus complication detail: with chronic kidney disease Chronic kidney disease stage : stage 4 (severe) Qualified Code(s): E11.22 - Type 2 diabetes mellitus with diabetic chronic kidney disease; N18.4 - Chronic kidney disease, stage 4 (severe ); N18.4 - Chronic kidney disease, stage 4 (severe); N18.4 - Chronic kidney disease, stage 4 (severe); N18.4 - Chronic kidney disease, stage 4 (severe); Z79.4 - retirement (current) use of insulin; Z79.4 - intermediate card tender (current) use of insulin; Z79.4 - intermediate card tender (current) use of insulin; Z79.4 - retirement (current ) use of insulin Is this a current diagnosis for this admission?: Yes
--- NOTE | 2017-07-01 21:55 | PROGRESS NOTE E ---
Progress Note NAME: MYRA RODRIGUEZ : 1940 AGE: 77Y DATE: 07/01/2017 ROOM: 329 SUBJECTIVE: Note that the patient states that her chest pressure is much improved but still has occasional episodes of chest pressure. At present she has no chest pressure. This makes me wonder if the patient does have a component of GERD causing her symptoms. There is no arrhythmia seen on the monitor. The patient denies any PND, orthopnea but she has dyspnea on exertion walking a little. Echocardiogram was performed but I am not satisfied with the interrogation of the aortic valve, hence, it will be repeated with me supervising tomorrow morning. The patient denies any leg edema today. There is no wheezing. There is no cough. There is no arrhythmia seen on the monitor. There is no dizziness, palpitations, or syncope. OBJECTIVE: GENERAL: On examination, the patient appears to be well-built, but appears to be chronically ill. VITAL SIGNS: She is afebrile with a temperature of 98 degrees Fahrenheit, pulse is 58 beats per minute, blood pressure is 131/62, respirations 17 per minute, O2 saturation is 100% on room air. HEENT: Head is atraumatic, normocephalic. Eyes: Pupils are equal, round, regular, reactive to light and accommodation. Extraocular movements are normal. There is no conjunctival pallor. There is no scleral icterus. ENT is negative. NECK: Supple. There is no JVD. Carotids are equal. There is a mild carotid delay present. There is transmitted aortic stenosis murmur to both carotids. There is no goiter. There is no lymphadenopathy. Trachea is central. LUNGS: Today seem fairly clear to auscultation and percussion. HEART: S1, S2 is heard. There is no S3 gallop. There is no S4 gallop. There is a systolic murmur of aortic stenosis present. A2 sound is muffled. There is no thrill. There is a murmur of mild mitral regurgitation present. There are no gallops, there is no rub. ABDOMEN: Soft, nontender. There is no hepatosplenomegaly. Bowel sounds are well heard. There are no tender areas or masses. EXTREMITIES: Femorals are diminished. There are no femoral bruits. Leg pulses are diminished. There is no pedal edema. There is no DVT or cellulitis. There is no cyanosis or clubbing. There is calf tenderness. CENTRAL NERVOUS SYSTEM: The patient is conscious, awake, alert, oriented x3 with no focal deficits. INTAKE/OUTPUT: The patient's intake and output is not accurate. DIAGNOSTICS: The patient's blood sugar is 132. The patient's TSH is 3.68, free T4 is 1.34, free T3 is slightly low at 2.64. IMPRESSION: 1. EXERTIONAL ANGINA. It seems to be improving with medication but it also seems to be an element of GERD. 2. MOST LIKELY SOME OF THE PATIENT'S CHEST PRESSURE IS SECONDARY TO GERD. We will add sucralfate to the regimen. 3. CAD, HISTORY OF CORONARY ARTERY BYPASS GRAFT SURGERY. 4. CARDIOMYOPATHY WITH MILDLY REDUCED LV EJECTION FRACTION. 5. AORTIC STENOSIS, MODERATE TO SEVERE BY PRIOR ECHO. We will recheck the aortic valve. 6. HISTORY OF MITRAL VALVE REPAIR FOR MITRAL REGURGITATION. The patient by prior echo has mild to moderate mitral stenosis. We will recheck to see the severity of the stenosis of the mitral valve. There is mild mitral regurgitation. 7. GERD. 8. CHRONIC KIDNEY DISEASE STAGE 4. 9. HYPOTHYROIDISM. 10. HYPERTENSION. 11. HYPERLIPIDEMIA. 12. DIABETES MELLITUS. RECOMMENDATION: 1. Continue the patient on amlodipine. 2. Continue the patient on isosorbide mononitrate 60 mg p.o. daily. 3. Continue the patient on aspirin 325 mg p.o. daily. 4. Continue atorvastatin, Coreg, and losartan. 5. We will add sucralfate to the regimen. 6. Medications have been reviewed and medications adjusted. Note that the patient is tolerating isosorbide at 60 mg p.o. daily. We will recheck the patient's echo. All of this discussed with the patient and the patient's family. TIME SPENT: Note 35 minutes spent on this patient with more than 50% of the time spent on direct patient care. Medical decision making continues to be highly complex in view of the multivalvular disease and also the patient's coronary artery disease and the patient's ongoing symptoms of chest pressure even though they are improved a bit. We will follow with you. Discussed with Dr. Gore the attending on the case. DICTATING PHYSICIAN: KENA FISH M.D. [id number] PHY#: [id number] ID: [id number] JOB#: [id number] ACCT: [id number] cc: >
[2017-07-02] MEDS: LEVOTHYROXINE SODIUM 0.088 MG TABLET PO SCH (05:26)
[2017-07-02] MEDS: SUCRALFATE 1 GM TABLET PO SCH ×3 (07:48→16:21)
[2017-07-02] MEDS: LOSARTAN POTASSIUM 50 MG TABLET PO SCH (09:04)
[2017-07-02] MEDS: ASPIRIN 325 MG TABLET PO SCH (09:04)
[2017-07-02] MEDS: CARVEDILOL 12.5 MG TABLET PO SCH (09:05)
[2017-07-02] MEDS: ISOSORBIDE MONONITRATE 60 MG TAB.ER.24H PO SCH (09:05)
[2017-07-02] MEDS: AMLODIPINE BESYLATE 5 MG TABLET PO SCH (09:05)
[2017-07-02] MEDS: ATORVASTATIN CALCIUM 40 MG TABLET PO SCH (09:05)
[2017-07-02] MEDS: FAMOTIDINE 20 MG TABLET PO SCH (09:05)
[2017-07-02] MEDS: INSULIN LISPRO 100 UNIT/ML 3 ML VIAL SUBCUT PRN (11:58)
[2017-07-02] MEDS: FUROSEMIDE INJ/PF 20 MG/2 ML SDV IV SCH (11:58)
[2017-07-02 19:08] VITALS: BP 125/58
--- NOTE | 2017-07-02 19:39 | PROGRESS NOTE E ---
Progress Note NAME: MYRA RODRIGUEZ : 1940 AGE: 77Y DATE: ROOM: 329 SUBJECTIVE: The patient states that she has no further chest pressure at rest or when ambulating. The patient did ambulate in the hallway without any shortness of breath or palpitation or chest pressure. There is no arrhythmia seen on the monitor. There is no syncope or near syncope. There is no shortness of breath at rest or with minimal exertion. There is no anginal symptoms. There is no pedal edema. OBJECTIVE: GENERAL: On examination the patient appears to be well-built, but appears to be chronically ill. VITAL SIGNS: She is afebrile with a temperature of 97.6 degrees Fahrenheit, pulse is 62 beats per minute, blood pressure is 116/70 with a mean of 88. The respirations are 17 per minute, O2 saturations are 100% on room air. HEENT: Head is atraumatic, normocephalic. Eyes: Pupils are equal, round, regular, reactive to light and accommodation. Extraocular movements are normal. There is no conjunctival pallor. There is no scleral icterus. ENT is negative. NECK: Supple. There is no JVD. Carotids are equal. There is a mild carotid delay present. There is transmitted aortic stenosis murmur to both carotids. There is no goiter. There is no lymphadenopathy. Trachea is central. LUNGS: Are clear to auscultation and percussion. HEART: S1, S2 is heard. There is no S3 gallop. There is no S4 gallop. There is a systolic murmur of aortic stenosis present. A2 sound is muffled. There is no thrill. There is mild carotid delay. There is a transmission of aortic stenosis murmur to both carotids. There is a murmur of mild mitral regurgitation present. There are no gallops, there is no rub. ABDOMEN: Soft, nontender. There is no hepatosplenomegaly. Bowel sounds are well heard. There are no tender areas or masses. EXTREMITIES: Femorals are diminished. There are no femoral bruits. Leg pulses are diminished. There is no pedal edema. There is no DVT or cellulitis. There is no cyanosis or clubbing. There is calf tenderness. CENTRAL NERVOUS SYSTEM: The patient is conscious, awake, alert, oriented x3 with no focal deficits. INTAKE/OUTPUT: The patient's intake and output is not accurate. DIAGNOSTICS: The patient's blood sugar is 145. IMPRESSION: 1. EXERTIONAL ANGINA AT PRESENT RELIEVED/RESOLVED WITH THE CURRENT MEDICATION INCLUDING THE INCREASE OF ISOSORBIDE MONONITRATE TO 60 MG PO DAILY. Continue the patient's Coreg. Continue the patient's losartan. Continue the patient on aspirin and atorvastatin. 2. MOST LIKELY SOME OF THE PATIENT'S CHEST PRESSURE IS SECONDARY TO GERD. Adding sucralfate has relieved the patient's symptoms totally, hence we will continue sucralfate along with the patient's proton-pump inhibitor. 3. CAD, HISTORY OF CORONARY ARTERY BYPASS GRAFT SURGERY. At present free of angina. Continue current medications as mentioned earlier. 4. CARDIOMYOPATHY WITH MILDLY REDUCED LV EJECTION FRACTION. Note by recent echo done yesterday her LV ejection fraction is low normal at 55%. 5. AORTIC STENOSIS, MODERATE TO SEVERE BY PRIOR ECHO. Repeat echo is difficult to get accurate measurements of the aortic flow velocity but I think at least the patient is moderate if not severe aortic stenosis. 6. THERE IS MILD MITRAL REGURGITATION. 7. GERD. 8. CHRONIC KIDNEY DISEASE STAGE 4. 9. HYPOTHYROIDISM. On replacement. 10. HYPERTENSION. Blood pressure well-controlled. 11. HYPERLIPIDEMIA. 12. DIABETES MELLITUS. RECOMMENDATION: 1. Continue the patient on amlodipine. 2. Continue isosorbide mononitrate 60 mg p.o. daily. 3. Continue the patient on aspirin. 4. Continue Coreg and losartan. 5. Continue sucralfate and famotidine. 6. Would recommend changing the patient's Lasix to 40 mg p.o. daily. Note that the patient's cardiac status is stable. The patient is asymptomatic, hence, we will sign off the case. Discussed this with dr. oGre. Note medications have been reviewed and adjustments made. Her IV Lasix has been changed to p.o. Lasix. TIME SPENT: Note 35 minutes spent on this patient with more than 50% of the time spent on direct patient care. In view of the multiple comorbidities medical decision makings is moderate to high complexity. The patient will follow up with me in the office. We will sign off the case. DICTATING PHYSICIAN: KENA FISH M.D. [id number] PHY#: [id number] ID: [id number] JOB#: [id number] ACCT: [id number] cc: >
--- NOTE | 2017-07-02 20:16 | PDOC DISCHARGE SUMMARY ---
General - Admit/Disc Date/PCP Admission Date/Primary Care Provider: 06/29/17 20:17 Discharge Date: 07/02/17 - Discharge Diagnosis (1) Chest pain Is this a current diagnosis for this admission?: Yes (2) Chronic kidney disease, stage IV (severe) Is this a current diagnosis for this admission?: Yes (3) Coronary artery disease Is this a current diagnosis for this admission?: Yes (4) Hyperlipidemia Is this a current diagnosis for this admission?: Yes (5) Hypertension Is this a current diagnosis for this admission?: Yes (6) Type 2 diabetes mellitus Is this a current diagnosis for this admission?: Yes - Additional Information Discharge Diet: Cardiac, Diabetic Discharge Activity: Activity As Tolerated, Balance Activity w/Rest Home Medications: Amlodipine Besylate [Norvasc 5 mg Tablet] 5 mg PO DAILY 06/29/17 Carvedilol [Coreg 12.5 mg Tablet] 12.5 mg PO Q12 06/29/17 Famotidine [Pepcid] 20 mg PO Q12 06/29/17 Furosemide [Lasix 40 mg Tablet] 40 mg PO QAM 06/29/17 Levothyroxine Sodium [Synthroid 0.088 mg Tablet] 0.088 mg PO DAILY 06/29/17 Losartan Potassium [Cozaar 100 mg Tablet] 100 mg PO DAILY 06/29/17 Nitroglycerin [Nitrostat] 0.6 mg SL Q5MP PRN 06/29/17 Rosuvastatin Calcium [Crestor 20 mg Tablet] 20 mg PO DAILY 06/29/17 History of Present Illness History of Present Illness: MYRA RODRIGUEZ is a 77 year old female,She came to the emergency room for evaluation of chest pressure, shortness of breath, she has a history of coronary artery disease status post CABG aortic valve stenosis, type II diabetes mellitus complicated with chronic kidney disease stage IV she was just recently admitted in this hospital and was discharged on 06/09/2017 for evaluation of chest pressure, at the time she had a nuclear stress test was negative she also a 2D echo showed aortic valve stenosis Hospital Course Hospital Course: Patient was admitted for the management of chest pain, she was seen by Dr. Maharaj, cardiology 3 sets of cardiac enzymes were negative for acute NV. It was felt that she may need cardiac catheterization at one point because of this symptom of chest pressure, she has chronic kidney disease stage IV ,there was concerned that if she received contrast the kidney function will progress to end-stage and that my results in hemodialysis. She had a Cardiolite Lexiscan stress test about two weeks ago and it was negative for acute reversibility Physical Exam Vital Signs: Temp Pulse Resp BP Pulse Ox 98.0 F 61 19 125/58 L 100 07/02/17 19:07 07/02/17 19:07 07/02/17 19:07 07/02/17 19:07 07/02/17 19:07 Intake & Output 07/01/17 07/02/17 07/03/17 06:59 06:59 06:59 Intake Total 1136 2406 613 Balance 1136 2406 613 Weight 67.1 kg 67.8 kg General appearance: PRESENT: no acute distress, well-developed, well-nourished Head exam: PRESENT: atraumatic, normocephalic Eye exam: PRESENT: conjunctiva pink, EOMI, PERRLA Ear exam: PRESENT: normal external ear exam Mouth exam: PRESENT: moist, tongue midline Neck exam: PRESENT: full ROM Respiratory exam: PRESENT: clear to auscultation saqib Cardiovascular exam: PRESENT: RRR, +S1, +S2 Pulses: PRESENT: normal dorsalis pedis pul, +2 pedal pulses bilateral Vascular exam: PRESENT: normal capillary refill GI/Abdominal exam: PRESENT: normal bowel sounds, soft Rectal exam: PRESENT: deferred Neurological exam: PRESENT: alert, awake, oriented to person, oriented to place , oriented to time, oriented to situation, CN II-XII grossly intact Psychiatric exam: PRESENT: appropriate affect, normal mood Skin exam: PRESENT: dry, intact, warm Results Laboratory Results: 06/30/17 06/30/17 06/30/17 00:49 07:27 13:30 CK-MB (CK-2) 1.22 1.05 1.09 Troponin I 0.023 0.020 0.013 Impressions: Chest X-Ray 06/29/17 18:30 IMPRESSION: NO ACUTE RADIOGRAPHIC FINDING IN THE CHEST. Qualifiers - * PATIENT BEING DISCHARGED WITH ANY OF THE FOLLOWING DIAGNOSIS: No VTE patient discharged on overlapping Therapy?: Yes
[2017-07-03] MEDS ORDERED: FUROSEMIDE 40 MG TABLET PO SCH (10:00)
--- NOTE | 2017-07-03 14:18 | XCELERA REPORT ---
[address] [address] Transthoracic Echocardiogram Report Name: MYRA RODRIGUEZ Age: 77 yrs Gender: Female : 1940 Patient Status: Inpatient Patient Location: [address] [place] [address] Study Date: 07/01/2017 03:12 PM Height: 67 in Weight: 150 lb BSA: 1.8 m2 Procedure: A two-dimensional transthoracic echocardiogram with color flow Doppler was performed. The study was technically difficult with many images being suboptimal in quality. The study was technically limited with all images being suboptimal in quality. Reason For Study: Assess and MS/MR History: Assess and MS/MR. Ordering Physician: IRIS FISH Performed By: Sumaya Campbell Interpretation Summary No True 2 chamber apical views obtained.Hence cannot comment on the apical and basal anterior ayon, and the apical and basal inferior ayon.The mid anterior and the mid inferior and the rest of the ayon contract normally The left ventricle is normal in size. LV EF is 55% There is mild concentric left ventricular hypertrophy. Left ventricular systolic function is low normal. Doppler measurements suggest impaired left ventricular relaxation, which is associated with grade I/IV or mild diastolic dysfunction There is no thrombus. The left atrial size is normal. There is evidence of mitral valve repair. There is mild mitral stenosis There is no evidence of mitral valve prolapse. There is a trace amount of mitral regurgitation There is no aortic valvular vegetation. There is a peak gradient of 64 mm of Hg , and mean graient of 41 mm of Hg. Inspite of these sigificant Aortic Valve velocities visually there at worst moderate . There is a mild amount of tricuspid regurgitation RVSP is 29 mm of Hg , with RA mean of 10. There is no pericardial effusion. MMode/2D Measurements & Calculations RVDd: 2.3 cm LVIDd: 4.3 cm FS: 29.7 % Ao root diam: 2.6 cm IVSd: 1.2 cm LVIDs: 3.0 cm EDV(Teich): 82.7 ml LVPWd: 1.2 cm ESV(Teich): 35.6 ml Ao root area: 5.3 cm2 EF(Teich): 57.0 % LA dimension: 3.1 cm LVOT diam: 2.1 cm LVOT area: 3.3 cm2 Doppler Measurements & Calculations MV E max keysha: MV V2 max: MV P1/2t max keysha: Ao V2 max: 90.8 cm/sec 122.2 cm/sec 95.8 cm/sec 397.6 cm/sec MV A max keysha: MV max PG: MV P1/2t: 102.8 msec Ao max P.7 cm/sec 6.0 mmHg MVA(P1/2t): 2.1 cm2 63.2 mmHg MV E/A: 0.90 MV V2 mean: MV dec slope: Ao V2 mean: 73.7 cm/sec 273.0 cm/sec2 300.0 cm/sec MV mean PG: MV dec time: Ao mean P.4 mmHg 0.32 sec 40.8 mmHg MV V2 VTI: Ao V2 VTI: 45.4 cm 94.3 cm MVA(VTI): 1.3 cm2 RUDDY(I,D): 0.64 cm2 RUDDY(V,D): 0.70 cm2 LV V1 max PG: SV(LVOT): 60.7 mlTR max keysha: 2.8 mmHg 216.0 cm/sec LV V1 mean PG: TR max P.7 mmHg 1.4 mmHg LV V1 max: 83.3 cm/sec LV V1 mean: 54.4 cm/sec LV V1 VTI: 18.2 cm Left Ventricle The left ventricle is normal in size. There is mild concentric left ventricular hypertrophy. LV EF is 55%. Left ventricular systolic function is low normal. Doppler measurements suggest impaired left ventricular relaxation, which is associated with grade I/IV or mild diastolic dysfunction. No True 2 chamber apical views obtained.Hence cannot comment on the apical and basal anterior ayon, and the apical and basal inferior ayon.The mid anterior and the mid inferior and the rest of the ayon contract normally. There is no thrombus. Right Ventricle The right ventricle is grossly normal size. Atria The right atrium is normal. The left atrial size is normal. Mitral Valve There is evidence of mitral valve repair. There is no evidence of mitral valve prolapse. There is no vegetation seen on the mitral valve. There is mild mitral stenosis. There is a trace amount of mitral regurgitation. Aortic Valve There is no aortic valvular vegetation. There is moderate aortic stenosis. There is a peak gradient of 64 mm of Hg , and mean graient of 41 mm of Hg. There is no LVOT obstruction. Inspite of these sigificant Aortic Valve velocities visually there at worst moderate . No aortic regurgitation is present. Tricuspid Valve There is no tricuspid stenosis. There is a mild amount of tricuspid regurgitation. Right ventricular systolic pressure is normal. RVSP is 29 mm of Hg , with RA mean of 10. Pulmonic Valve The pulmonic valve is not well visualized. Great Vessels The aortic root is normal size. Effusions There is no pericardial effusion. : IRIS FISH > Iris Fish
--- NOTE | 2017-07-05 12:57 | CONSULTATION REPORT E ---
Consultation Report NAME: MYRA RODRIGUEZ : 1940 AGE: 77Y DATE: 06/30/2017 329 A TO: KENA FISH M.D. FROM: KRYSTEN ANDRE M.D. Requesting Physician REASON FOR CONSULTATION: Exertional chest pressure and exertional shortness of breath in a patient with known coronary artery disease, chronic kidney disease at present stage IV, history of coronary artery bypass graft surgery 2-vessel and history of mitral valve repair, hypertension and diabetes mellitus. Note, the patient's old records were reviewed. HISTORY OF PRESENT ILLNESS: Patient is a 77-year-old -Congolese female with known history of coronary artery disease, past history of MT, history of coronary artery bypass graft surgery x2 and history of mitral valve repair for severe mitral regurgitation, and hypertension, diabetes mellitus and chronic kidney disease at present stage IV. States since the past week or so he has been having progressively increasing chest pressure like a man sitting on her chest if she does any exertion. This has been increasing but there is no rest symptoms. She also noted that she is having shortness of breath with exertion which is also increasing. She also has moderate to severe aortic stenosis by recent echo. She does have some orthopnea and PND episodes. The patient states she had mild leg edema which is now much improved as the patient received diuretics in the emergency room. She also states that the nitroglycerin paste that had been placed in the emergency room helped her symptoms a lot. PAST MEDICAL HISTORY: Positive for history of non-ST elevation MT in the past. Had cardiac catheterization and found to have severe mitral regurgitation and 2-vessel coronary artery disease. She had a left internal mammary artery to the left anterior artery and a saphenous vein graft to the circumflex branch. She also had repair of the mitral valve. Her recent echo showed that her LV function was mildly reduced to 50% and she had moderate to severe aortic stenosis with a peak gradient of 53 mmHg and a mean gradient of 39 mmHg across the aortic valve. She also has mild to moderate mitral stenosis in the mitral valve area of 1.8 cm2 with mild to moderate amount of regurgitation. Note that the patient recently was admitted in May 2017 with similar symptoms. An MT was ruled out. She subsequently had a stress test which was negative for any inducible ischemia. She also had an echo as mentioned earlier which showed the ejection fraction is moderately reduced at 50%. She had moderate to severe aortic stenosis. She had mild to moderate mitral stenosis and also a mild amount of mitral regurgitation. She has a history of hypertension. She has a history of chronic disease which used to be stage III, at present is stage IV. She has a past history of congestive heart failure, recent symptoms of PND, orthopnea, leg edema and dyspnea on exertion consistent of acute on chronic systolic heart failure compounded by valvular disease. She has a history of hypothyroidism. History of diabetes mellitus type 2. She has a history of GERD. There is no asthma or COPD. There is no TIA or CVA. There is no history of anxiety or depression. There is no history of seizures, headaches or migraines. There is no history of sleep apnea. PAST SURGICAL HISTORY: Positive for hysterectomy. She also has had coronary artery bypass graft surgery with a OCASIO to the LAD and the saphenous vein graft to the circumflex branch. She also had mitral valve repair for severe mitral regurgitation. FAMILY HISTORY: Positive for coronary artery disease and hypertension. SOCIAL HISTORY: She does not smoke. There is no history of ETOH abuse. REVIEW OF SYSTEMS: CONSTITUTIONAL: Denies any fever, chills or rigors. Complains of generalized fatigued and malaise. EYES: No history of amblyopia or diplopia. No history of amaurosis fugax. EARS: No history of hearing loss. No history of tinnitus. No history of vertigo. MOUTH: No history of altered taste sensation. No history of ulcers in the mouth. No history of bleeding from the gums. NOSE: No history of hay fever. No history of nosebleed. No history of nasal polyps. THROAT: No history of odynophagia or dysphagia. No history of recurrent sore throats. SKIN: No history of jaundice. No history of pruritus. No history of ecchymosis. No history of skin cancer. No history of eczema. No history of psoriasis. NECK: No history of lymphadenopathy or lymph nodes. No history of goiter. No swelling in the neck. LUNGS: No history of wheezing. No history of cough or sputum production. There is no history of asthma, COPD. No history of sleep apnea. No history of pulmonary embolism. No history of pleuritic chest pain. There is no history of hemoptysis. CARDIAC: History of non-ST elevation MT in the past and in November 2007. She has a cardiac catheterization after non-ST elevation MT and subsequently underwent coronary artery bypass graft surgery as mentioned earlier. She also had mitral valve repair. By recent echocardiogram, the patient's ejection fraction is mildly reduced to 50% and she also has some moderate to severe aortic stenosis and mild to moderate mitral stenosis with mild mitral regurgitation. She also has recent leg edema which is improved with Lasix. She has no palpitations or syncope. She does have symptoms suggestive of PND and orthopnea. She has a past history of congestive heart failure, seems to be now. Also that the patient has had acute on chronic systolic heart failure compounded by valvular disease. ENDOCRINE: History of diabetes mellitus. No history of polydipsia or polyuria. No history of heat or cold intolerance. She has a history of hyperthyroidism. RENAL: History of chronic kidney disease, stage 4, at present. No history of symptoms of UTI. No hematuria, pyuria or dysuria. No history of flank pain. MUSCULOSKELETAL: Denies any arthritis or collagen-vascular disease. GASTROINTESTINAL: History of GERD present. No history of GI bleed. no history of altered bowel movements. No history of jaundice. No history of peptic ulcer disease. No fatty food intolerance. VASCULAR: No history of calf or buttocks claudication. No history of DVT. HEMATOLOGICAL: No history of bleeding diathesis or clotting disorders. CENTRAL NERVOUS SYSTEM: No history of TIA or CVA. No history of sleep apnea. No history of gait imbalance. No history of headaches or migraines or seizures. PSYCHIATRIC: No history of anxiety or depression. No history of suicidal ideation. ALLERGIES: She is allergic to AND LACTOSE. SOCIAL HISTORY: The patient does not smoke. There is no history of ETOH or drug abuse. DISPOSITION: THE PATIENT IS A FULL CODE. Her daughter, Ms. Nivia Rodriguez, is her healthcare power of employment attorney. MEDICATIONS: Include: 1. Amlodipine 5 mg q. day. 2. 40 mg p.o. daily. 3. Coreg 12.5 mg q.12 hours for hypoglycemic precautions. 4. Glucose 40% gel g p.o. p.r.n. and 30 g p.o. p.r.n. for hypoglycemia. 5. She is on dextrose 50% 12.5 g IV and 25 g IV p.r.n. hypoglycemia and glucagon 1 mg p.r.n. hypoglycemia and Pepcid 20 mg p.o. q.12 hours. 6. She is on Lasix 40 mg p.o. daily. 7. She is on Nitro Paste 1 to chest wall x1. . 8. Synthroid 0.088 mg p.o. q.6 hours daily. 9. She is on losartan 100 mg p.o. daily. 10. Nitroglycerin 1 table sublingual mist p.r.n. 11. For some reason patient is not on aspirin. The patient states that she does not have any intolerance to aspirin. PHYSICAL EXAMINATION: GENERAL: On examination, the patient is well built but appears to be chronically ill. VITAL SIGNS: She is afebrile with a temperature of 98.1 degrees Fahrenheit. Pulse is 54 beats per minute. Blood pressure is 142/68. Respirations are 20 per minute. O2 sat is 100% on room air HEENT: Head is atraumatic, normocephalic. Eyes: Pupils are equal, round, regular, reactive to light and accommodation. There is no conjunctival pallor. There is no scleral icterus. Ears: Tympanic membranes are intact. External auditory canals are clear. Nose: There is no deviated nasal septum. There is no inflammation of the nasal mucous membranes. Mouth: Mucous membranes of the mouth are moist. Tongue is moist. There are no ulcers. There is no bleeding from the gums. Throat: There is no redness of the oropharynx. There are no exudates. SKIN: There are no skin rashes. There are no skin lesions. There is no petechia or ecchymosis. NECK: Supple. There is mild JVD present. Carotids are equal. There is no bruit. There is no goiter. There is no lymphadenopathy. Trachea central. LUNGS: Shows a few bibasilar rales suggestive of congestive heart failure. HEART: S1 and S2 is heard. There is no S3 gallop. There is no S4 gallop. There is murmur of aortic stenosis present. There is mild mitral regurgitation present. The first heart sound is slightly increased but I do not appreciate a diastolic murmur or mitral stenosis. There is no rub. There is no S3 or S4 gallops. ABDOMEN: Soft, nontender. There is no hepatosplenomegaly. Bowel sounds are well heard. EXTREMITIES: There is trace to mild pedal edema bilaterally. There is no DVT or cellulitis. There is no cyanosis or clubbing. There is calf tenderness. Femorals are diminished. There are no femoral bruits. Leg pulses are diminished. CENTRAL NERVOUS SYSTEM: The patient is conscious, awake, alert, oriented x3 with no focal deficits. PSYCHIATRIC: The patient's judgment and insight are intact. Her affect is normal. DIAGNOSTIC STUDIES: The patient's EKG shows a sinus rhythm with nonspecific ST changes in the anterior leads which were unchanged from before. Also, there is LV and there is no change in vascular block. The patient's chest x-ray shows no acute radiographic findings. LABORATORY STUDIES: The patient's white count is ; hemoglobin is 12.1; hematocrit is 36.7; and her platelet count is 140,000. The patient's triglycerides are 52. The patient's LDL cholesterol is elevated at 108, . The patient's troponin I and cardiac enzymes elevated x3. The patient's anti-proBNP 6020. The patient's sodium is 135.1, potassium is 3.9, chloride is 106, CO2 is 27, the patient's BUN is 38, creatinine is 2.51, GFR was reduced to 33 mL which is chronic kidney disease stage IV. The patient . The patient's liver function tests are normal. IMPRESSION: 1. The patient exerted chest pressure compatible with exertional angina seems to be increasing. Note, in view of the recent latest stress test and presence of the patient's aortic stenosis, mitral stenosis and cardiomyopathy with mildly reduced LV ejection fraction, and especially in view of the patient's renal status, would maximize the patient's medical therapy the patient to cardiac catheterization since there is no acute ST-segment elevation or ST-segment depression by EKG and the cardiac enzymes have been negative. Also note that the patient is in observation status. Would recommend that adjustment of medication would take at least 48-72 hours and hence would recommend admitting the patient since she would meet the criteria. At present, in view of the patient's renal status, and the patient's platelets being 140, would avoid starting the patient on full anticoagulation, since the patient does exert her symptoms and no rest symptoms. Since the patient states that she feels better with the patient being on nitrates, will start the patient on isosorbide mononitrate at 30 mg p.o. daily and increase as tolerated. Would also continue the patient's Norvasc and increase her . Continue the patient on losartan and continue the patient's Coreg. Would like to add anti- into the patient's regimen. If the patient continues to be symptomatic, then the patient may need further workup in the tertiary care center to see if the recent cause of these symptoms are a combination of the valvular disease and the patient's coronary artery disease and cardiomyopathy causing the patient's symptoms. But that would mean that the patient would undergo cardiac catheterization which may lead to the patient having to go into dialysis for worsening of renal function. 2. EXERTIONAL SHORTNESS OF BREATH MOST LIKELY SECONDARY TO VALVULAR DISEASE WITH AORTIC STENOSIS, MITRAL STENOSIS AND THE PATIENT'S CARDIOMYOPATHY AND ALSO VOLUME OVERLOAD DUE TO THE PATIENT'S CHRONIC KIDNEY DISEASE. 3. CORONARY ARTERY DISEASE, HISTORY OF NON-ST ELEVATION MT IN 2008 AND HISTORY OF CORONARY ARTERY BYPASS GRAFT SURGERY. 4. HISTORY OF MITRAL VALVE REPAIR FOR MITRAL REGURGITATION WHICH IS SEVERE AT PRESENT, MILD MITRAL REGURGITATION WITH MILD TO MODERATE MITRAL STENOSIS. 5. HISTORY OF CONGESTIVE HEART FAILURE. The patient seems to have exertional symptoms of heart failure versus acute on chronic systolic heart failure. 6. CHRONIC KIDNEY DISEASE AT PRESENT STAGE 4. The patient is being seen as an outpatient basis by Dr. Gabriel Kennedy, relay shop tester. 7. DIABETES MELLITUS, INSULIN REQUIRED. 8. HYPERTENSION. Blood pressure needs further control. 9. HYPOTHYROIDISM. Would recommend retaking the patient's thyroid function 10. HYPERLIPIDEMIA. 11. GI BLEED. Note that the patient is a highly complex case. I will recheck the patient's echo to see exactly what the area is and also the gradients across the aortic valve. Also, will look at the mitral valve for the mitral stenosis. Patient's prognosis is very guarded. Patient will require slow titration of medication. Would recommend increasing the patient's Norvasc to 5 mg p.o. q.12 hours if tolerated by the patient. Note, the patient's old records have been reviewed. Her medications have been reviewed. Note, discussed this with the patient and patient's relatives at the bedside. Note, 60 minutes spent on the patient with more than 50% of the time spent on direct patient care. Medical decision making is of high complexity. Discussed with Dr. Andre and recommendations made. If patient continues to be symptomatic, then the patient's family needs to make decisions whether to undergo cardiac catheterization or not. In which case, that could worsen the patient's renal failure even requiring that the patient needing or ending up having temporary or permanent dialysis. Would recommend consult Nephrology. DICTATING PHYSICIAN: KENA FISH M.D. [id number] PHY#: [id number] ID: [id number] JOB#: [id number] ACCT: [id number] cc:KENA FISH M.D. >
== END 2017-07-02 19:43 | disposition home or self-care (01) | DRG 303 ==
LOC: ER 17:42 → EH 20:17 → UNDOADMOB 20:17 → EH 22:07 → 3S 23:13 → OBSVTOIN 07-02 15:10 → UNDODISOB 07-02 19:43
PROVIDERS: ADMIT Internal Medicine; ATTEND Internal Medicine
DX: I25.119 Atherosclerotic heart disease of native coronary artery with unspecified angina pectoris (principal); I13.0 Hypertensive heart and chronic kidney disease with heart failure and stage 1 through stage 4 chronic kidney disease, or unspecified chronic kidney disease; N18.4 Chronic kidney disease, stage 4 (severe); I50.22 Chronic systolic (congestive) heart failure; K21.9 Gastro-esophageal reflux disease without esophagitis; I42.9 Cardiomyopathy, unspecified; E11.22 Type 2 diabetes mellitus with diabetic chronic kidney disease; E78.5 Hyperlipidemia, unspecified; I08.0 Rheumatic disorders of both mitral and aortic valves; E03.9 Hypothyroidism, unspecified; E73.9 Lactose intolerance, unspecified; I25.2 Old myocardial infarction; Z79.899 Other long term (current) drug therapy; Z95.1 Presence of aortocoronary bypass graft; Z98.890 Other specified postprocedural states; Z82.49 Family history of ischemic heart disease and other diseases of the circulatory system; Z79.4 Long term (current) use of insulin; Z87.19 Personal history of other diseases of the digestive system; Z90.710 Acquired absence of both cervix and uterus
CPT/HCPCS: 36415; 71046; 80053; 80061; 82553; 82962; 83880; 84439; 84443; 84481; 84484; 85025; 93005; 93010; 93308; 93321; 99285; G0378; J1815; J1940; J3490

== ENCOUNTER → 2017-08-02 | Outpatient (CLI) | payer MEDICARE, MEDICAID ==
[2017-08-02 12:36] LABS: HEMATOCRIT 33.6 % (36.0-47.0); HEMOGLOBIN 11.3 g/dL (12.0-15.5); MEAN CORPUSCULAR HEMOGLOBIN 29.2 pg (27.0-33.4); MEAN CORPUSCULAR HGB CONC 33.6 g/dL (32.0-36.0); MEAN CORPUSCULAR VOLUME 87 fl (80-97); PLATELET COUNT 162 10^3/uL (150-450); RED BLOOD COUNT 3.88 10^6/uL (3.72-5.28); RED CELL DISTRIBUTION WIDTH 13.8 % (11.5-14.0); WHITE BLOOD COUNT 6.6 10^3/uL (4.0-10.5)
[2017-08-02 12:48] LABS: APPEARANCE,URINE CLOUDY; BILIRUBIN,URINE NEGATIVE (NEGATIVE); COLOR,URINE YELLOW; GLUCOSE, URINE NEGATIVE (NEGATIVE); KETONES,URINE NEGATIVE (NEGATIVE); LEUKOCYTE ESTERASE,URINE LARGE (NEGATIVE); NITRITE,URINE POSITIVE (NEGATIVE); PROTEIN,URINE 100 mg/dL (NEGATIVE); URINE SPECIFIC GRAVITY 1.015; UROBILINOGEN,URINE NEGATIVE mg/dL (<2.0)
[2017-08-02 12:54] LABS: ANION GAP 11 (5-19); BLOOD UREA NITROGEN 48 mg/dL (7-20); CALCIUM 9.6 mg/dL (8.4-10.2); CARBON DIOXIDE 26 mmol/L (22-30); CHLORIDE 109 mmol/L (98-107); GLUCOSE 90 mg/dL (75-110); PHOSPHORUS 4.4 mg/dL (2.5-4.5); POTASSIUM 4.7 mmol/L (3.6-5.0); SODIUM 145.5 mmol/L (137-145)
== END ==
LOC: OD 11:20
PROVIDERS: ATTEND Physician Assistant Medical
DX: I12.9 Hypertensive chronic kidney disease with stage 1 through stage 4 chronic kidney disease, or unspecified chronic kidney disease (principal); N18.3 Chronic kidney disease, stage 3 (moderate); E11.9 Type 2 diabetes mellitus without complications; R80.9 Proteinuria, unspecified; D64.9 Anemia, unspecified
CPT/HCPCS: 36415; 80048; 81001; 83970; 84100; 85027

== ENCOUNTER → 2017-11-25 | Outpatient (CLI) | payer MEDICARE, MEDICAID ==
[2017-11-25 09:47] LABS: HEMATOCRIT 34.2 % (36.0-47.0); HEMOGLOBIN 11.5 g/dL (12.0-15.5); MEAN CORPUSCULAR HEMOGLOBIN 29.5 pg (27.0-33.4); MEAN CORPUSCULAR HGB CONC 33.7 g/dL (32.0-36.0); MEAN CORPUSCULAR VOLUME 87 fl (80-97); PLATELET COUNT 144 10^3/uL (150-450); RED BLOOD COUNT 3.91 10^6/uL (3.72-5.28); RED CELL DISTRIBUTION WIDTH 13.9 % (11.5-14.0); WHITE BLOOD COUNT 5.5 10^3/uL (4.0-10.5)
[2017-11-25 09:56] LABS: APPEARANCE,URINE CLOUDY; BILIRUBIN,URINE NEGATIVE (NEGATIVE); COLOR,URINE YELLOW; GLUCOSE, URINE NEGATIVE (NEGATIVE); KETONES,URINE NEGATIVE (NEGATIVE); LEUKOCYTE ESTERASE,URINE LARGE (NEGATIVE); NITRITE,URINE NEGATIVE (NEGATIVE); PROTEIN,URINE 100 mg/dL (NEGATIVE); URINE SPECIFIC GRAVITY 1.014; UROBILINOGEN,URINE NEGATIVE mg/dL (<2.0)
[2017-11-25 10:12] LABS: ANION GAP 10 (5-19); BLOOD UREA NITROGEN 59 mg/dL (7-20); CALCIUM 9.5 mg/dL (8.4-10.2); CARBON DIOXIDE 25 mmol/L (22-30); CHLORIDE 107 mmol/L (98-107); GLUCOSE 146 mg/dL (75-110); PHOSPHORUS 4.4 mg/dL (2.5-4.5); POTASSIUM 4.4 mmol/L (3.6-5.0); SODIUM 142.3 mmol/L (137-145)
== END ==
LOC: OD 08:59
PROVIDERS: ATTEND Physician Assistant Medical
DX: I12.9 Hypertensive chronic kidney disease with stage 1 through stage 4 chronic kidney disease, or unspecified chronic kidney disease (principal); E11.22 Type 2 diabetes mellitus with diabetic chronic kidney disease; N18.4 Chronic kidney disease, stage 4 (severe); R30.0 Dysuria
CPT/HCPCS: 36415; 80048; 81001; 83970; 84100; 85027; 87086; 87088; 87186

== ENCOUNTER → 2018-01-25 | Outpatient (CLI) | payer MEDICARE, MEDICAID ==
--- NOTE | 2018-01-25 12:25 | RADIOLOGY REPORT (SQ) ---
EXAM DESCRIPTION: CHEST PA/LATERAL COMPLETED DATE/TIME: 01/25/2018 10:24 am REASON FOR STUDY: COUGH COMPARISON: 06/29/2017 EXAM PARAMETERS: NUMBER OF VIEWS: two views TECHNIQUE: Digital Frontal and Lateral radiographic views of the chest acquired. RADIATION DOSE: NA LIMITATIONS: none FINDINGS: LUNGS AND PLEURA: No opacities, masses or pneumothorax. No pleural effusion. MEDIASTINUM AND HILAR STRUCTURES: No masses or contour abnormalities. HEART AND VASCULAR STRUCTURES: Normal heart size. Prior CABG. Unchanged aortic valvular hardware. BONES: No acute osseous abnormality. HARDWARE: Median sternotomy wires with evidence of prior CABG. OTHER: No other significant finding. IMPRESSION: No evidence of acute cardiopulmonary process. TECHNICAL DOCUMENTATION: JOB ID: [id number] [employer]- All Rights Reserved Reading location - IP/workstation name: [email or web address]
== END ==
LOC: OD 09:58
PROVIDERS: ATTEND Internal Medicine
DX: R05 Cough (principal)
CPT/HCPCS: 71046

== ENCOUNTER → 2018-03-03 | Outpatient (CLI) | payer MEDICARE, MEDICAID ==
[2018-03-03 16:30] LABS: HEMATOCRIT 29.1 % (36.0-47.0); HEMOGLOBIN 9.9 g/dL (12.0-15.5); MEAN CORPUSCULAR HEMOGLOBIN 29.9 pg (27.0-33.4); MEAN CORPUSCULAR HGB CONC 33.9 g/dL (32.0-36.0); MEAN CORPUSCULAR VOLUME 88 fl (80-97); PLATELET COUNT 193 10^3/uL (150-450); RED CELL DISTRIBUTION WIDTH 15.3 % (11.5-14.0); WHITE BLOOD COUNT 8.2 10^3/uL (4.0-10.5)
[2018-03-03 16:49] LABS: ANION GAP 10 (5-19); BLOOD UREA NITROGEN 59 mg/dL (7-20); CALCIUM 9.5 mg/dL (8.4-10.2); CARBON DIOXIDE 26 mmol/L (22-30); CHLORIDE 106 mmol/L (98-107); GLUCOSE 180 mg/dL (75-110); IRON(TIBC) 60.6 ug/dL (37-170); POTASSIUM 4.4 mmol/L (3.6-5.0); SODIUM 141.9 mmol/L (137-145)
== END ==
LOC: OD 15:41
PROVIDERS: ATTEND Internal Medicine Nephrology
DX: E11.22 Type 2 diabetes mellitus with diabetic chronic kidney disease (principal); N18.4 Chronic kidney disease, stage 4 (severe); D64.9 Anemia, unspecified
CPT/HCPCS: 36415; 80048; 82728; 83540; 83550; 85027

== ENCOUNTER → 2018-06-27 | Outpatient (CLI) | payer MEDICARE, MEDICAID ==
[2018-06-27 15:09] LABS: HEMATOCRIT 32.1 % (36.0-47.0); HEMOGLOBIN 10.4 g/dL (12.0-15.5); MEAN CORPUSCULAR HEMOGLOBIN 26.9 pg (27.0-33.4); MEAN CORPUSCULAR HGB CONC 32.5 g/dL (32.0-36.0); MEAN CORPUSCULAR VOLUME 83 fl (80-97); PLATELET COUNT 140 10^3/uL (150-450); RED BLOOD COUNT 3.87 10^6/uL (3.72-5.28); RED CELL DISTRIBUTION WIDTH 14.8 % (11.5-14.0); WHITE BLOOD COUNT 5.3 10^3/uL (4.0-10.5)
[2018-06-27 15:27] LABS: ANION GAP 12 (5-19); BLOOD UREA NITROGEN 81 mg/dL (7-20); CALCIUM 9.7 mg/dL (8.4-10.2); CARBON DIOXIDE 28 mmol/L (22-30); CHLORIDE 101 mmol/L (98-107); GLUCOSE 219 mg/dL (75-110); POTASSIUM 4.2 mmol/L (3.6-5.0); SODIUM 141.3 mmol/L (137-145)
== END ==
LOC: OD 14:36
PROVIDERS: ATTEND Internal Medicine Nephrology
DX: E11.22 Type 2 diabetes mellitus with diabetic chronic kidney disease (principal); I12.9 Hypertensive chronic kidney disease with stage 1 through stage 4 chronic kidney disease, or unspecified chronic kidney disease; N18.4 Chronic kidney disease, stage 4 (severe); R60.9 Edema, unspecified; D64.9 Anemia, unspecified
CPT/HCPCS: 36415; 80048; 83735; 85027

== ENCOUNTER → 2018-07-26 | Outpatient (CLI) | payer MEDICARE, MEDICAID ==
--- NOTE | 2018-07-26 14:28 | RADIOLOGY REPORT (SQ) ---
EXAM DESCRIPTION: MRI HEAD WITHOUT COMPLETED DATE/TIME: 07/26/2018 1:17 pm REASON FOR STUDY: R41.2 RETROGRADE AMNESIA R41.2 RETROGRADE AMNESIA COMPARISON: None. TECHNIQUE: Multiplanar imaging includes non-contrasted T1, T2, FLAIR, and diffusion with ADC map seq uences. Images stored on PACS. LIMITATIONS: None. FINDINGS: ANATOMY: Generalized atrophy. CSF SPACES: Normal in size and contour. No hemorrhage. CEREBRUM: Sulci and gyri normal in size and contour. Normal white matter signal on FLAIR imaging. No evidence of hemorrhage, mass, or extraaxial fluid collection. POSTERIOR FOSSA: No signal alteration. No hemorrhage. No edema, masses or mass effect. Internal tran tory canals, cerebello-pontine angles, mastoids normal. DIFFUSION IMAGING: Negative for acute or sub-acute infarction. ORBITS: No masses. Globes normal. PARANASAL SINUSES: No fluid levels. Mucosa normal. OTHER: No other significant finding. IMPRESSION: GENERALIZED AGE-RELATED ATROPHY. OTHERWISE UNREMARKABLE MRI OF THE BRAIN WITHOUT INTRAV ENOUS GADOLINIUM CONTRAST. EVIDENCE OF ACUTE STROKE: NO. TECHNICAL DOCUMENTATION: JOB ID: [id number]- All Rights Reserved Reading location - IP/workstation name: [email or web address]
== END ==
LOC: RAD 11:44
PROVIDERS: ATTEND Internal Medicine
DX: G31.9 Degenerative disease of nervous system, unspecified (principal); R41.2 Retrograde amnesia
CPT/HCPCS: 70551

== ENCOUNTER → 2018-07-28 | Outpatient (CLI) | payer MEDICARE, MEDICAID ==
[2018-07-28 11:50] LABS: HEMATOCRIT 31.3 % (36.0-47.0); HEMOGLOBIN 10.3 g/dL (12.0-15.5); MEAN CORPUSCULAR HEMOGLOBIN 27.4 pg (27.0-33.4); MEAN CORPUSCULAR HGB CONC 32.9 g/dL (32.0-36.0); MEAN CORPUSCULAR VOLUME 83 fl (80-97); PLATELET COUNT 134 10^3/uL (150-450); RED BLOOD COUNT 3.76 10^6/uL (3.72-5.28); RED CELL DISTRIBUTION WIDTH 15.7 % (11.5-14.0); WHITE BLOOD COUNT 5.3 10^3/uL (4.0-10.5)
[2018-07-28 12:08] LABS: ANION GAP 11 (5-19); BLOOD UREA NITROGEN 70 mg/dL (7-20); CALCIUM 9.6 mg/dL (8.4-10.2); CARBON DIOXIDE 27 mmol/L (22-30); CHLORIDE 104 mmol/L (98-107); GLUCOSE 146 mg/dL (75-110); POTASSIUM 4.2 mmol/L (3.6-5.0); SODIUM 141.5 mmol/L (137-145)
== END ==
LOC: OD 11:23
PROVIDERS: ATTEND Physician Assistant Medical
DX: I13.0 Hypertensive heart and chronic kidney disease with heart failure and stage 1 through stage 4 chronic kidney disease, or unspecified chronic kidney disease (principal); N18.4 Chronic kidney disease, stage 4 (severe); E11.22 Type 2 diabetes mellitus with diabetic chronic kidney disease; I50.9 Heart failure, unspecified; D50.9 Iron deficiency anemia, unspecified
CPT/HCPCS: 36415; 80048; 85027

== ENCOUNTER → 2018-10-25 | Outpatient (CLI) | payer MEDICARE, MEDICAID ==
[2018-10-25 09:48] LABS: APPEARANCE,URINE CLOUDY; BILIRUBIN,URINE NEGATIVE (NEGATIVE); COLOR,URINE YELLOW; GLUCOSE, URINE NEGATIVE (NEGATIVE); KETONES,URINE NEGATIVE (NEGATIVE); LEUKOCYTE ESTERASE,URINE LARGE (NEGATIVE); NITRITE,URINE POSITIVE (NEGATIVE); PROTEIN,URINE 100 mg/dL (NEGATIVE); URINE SPECIFIC GRAVITY 1.009; UROBILINOGEN,URINE NEGATIVE mg/dL (<2.0)
[2018-10-25 09:49] LABS: HEMATOCRIT 34.8 % (36.0-47.0); HEMOGLOBIN 11.7 g/dL (12.0-15.5); MEAN CORPUSCULAR HEMOGLOBIN 28.8 pg (27.0-33.4); MEAN CORPUSCULAR HGB CONC 33.5 g/dL (32.0-36.0); MEAN CORPUSCULAR VOLUME 86 fl (80-97); PLATELET COUNT 117 10^3/uL (150-450); RED BLOOD COUNT 4.05 10^6/uL (3.72-5.28); RED CELL DISTRIBUTION WIDTH 14.9 % (11.5-14.0); WHITE BLOOD COUNT 5.8 10^3/uL (4.0-10.5)
[2018-10-25 10:15] LABS: ANION GAP 11 (5-19); BLOOD UREA NITROGEN 47 mg/dL (7-20); CALCIUM 9.7 mg/dL (8.4-10.2); CARBON DIOXIDE 30 mmol/L (22-30); CHLORIDE 101 mmol/L (98-107); POTASSIUM 4.2 mmol/L (3.6-5.0)
[2018-10-25 10:34] LABS: GLUCOSE 61 mg/dL (75-110)
== END ==
LOC: OD 08:53
PROVIDERS: ATTEND Physician Assistant Medical
DX: I13.0 Hypertensive heart and chronic kidney disease with heart failure and stage 1 through stage 4 chronic kidney disease, or unspecified chronic kidney disease (principal); I50.9 Heart failure, unspecified; N18.4 Chronic kidney disease, stage 4 (severe); E11.22 Type 2 diabetes mellitus with diabetic chronic kidney disease; D50.9 Iron deficiency anemia, unspecified
CPT/HCPCS: 36415; 80048; 81001; 83970; 84100; 85027

== ENCOUNTER 2019-02-20 09:01 | Inpatient (IN) | payer MEDICARE, MEDICAID ==
--- NOTE | 2019-02-20 09:23 | ER Document Report ---
ED Medical Screen (RME) - General Chief Complaint: Abnormal Lab Results Stated Complaint: ABNORMAL LABS Time Seen by Provider: 02/20/19 09:14 Primary Care Provider: CHOLO ROSARIO PA-C [Primary Care Provider] - Follow up as needed Notes: Patient is a 79-year-old female with history of chronic kidney disease and "heart problems" who presents to the emergency department she was referred here for abnormal labs. Family states that her doctor at [facility] has been trying to contact her over the weekend to state that her kidneys are not working properly. Patient reports she has had nausea without vomiting or diarrhea. Denies fever. Patient and family are poor historians. TRAVEL OUTSIDE OF THE [place] IN LAST 30 DAYS: No - Related Data Allergies/Adverse Reactions: ezetimibe [From Zetia] Allergy (Verified 06/29/17 18:21) lactose [Lactose] Allergy (Verified 06/29/17 18:21) Past Medical History - Social History Frequency of alcohol use: None Drug Abuse: None - Past Medical History Cardiac Medical History: Reports: Hx Coronary Artery Disease, Hx Heart Attack, Hx Hypercholesterolemia, Hx Hypertension Denies: Hx Congestive Heart Failure Pulmonary Medical History: Reports: Hx Pneumonia Denies: Hx Asthma, Hx Bronchitis, Hx COPD, Hx Tuberculosis Neurological Medical History: Denies: Hx Seizures, Hx Parkinson's Disease Endocrine Medical History: Reports: Hx Diabetes Mellitus Type 2 Renal/ Medical History: Denies: Hx End Stage Renal Disease, Hx Kidney Stones, Hx Peritoneal Dialysis GI Medical History: Reports: Hx Gastritis. Denies: Hx Cirrhosis, Hx Gastroesophageal Reflux Disease, Hx Ulcer Musculoskeltal Medical History: Reports Hx Arthritis, Denies Hx Multiple Sclerosis Psychiatric Medical History: Denies: Hx Bipolar Disorder, Hx Depression, Hx Schizophrenia Past Surgical History: Reports: Hx Cardiac Surgery - stents, Hx Coronary Artery Bypass Graft, Hx Hysterectomy, Hx Open Heart Surgery - Immunizations Immunizations up to date: Yes Physical Exam - Vital signs Vitals: Temp Pulse Resp BP Pulse Ox 97.6 F 70 16 113/54 L 100 02/20/19 09:07 02/20/19 09:07 02/20/19 09:07 02/20/19 09:07 02/20/19 09:07 Course - Re-evaluation Re-evalutation: 02/20/19 09:22 I have greeted and performed a rapid initial assessment of this patient. A comprehensive ED assessment and evaluation of the patient, analysis of test results and completion of the medical decision making process will be conducted by additional ED providers. - Vital Signs Vital signs: Temp Pulse Resp BP Pulse Ox 97.6 F 70 16 113/54 L 100 02/20/19 09:07 02/20/19 09:07 02/20/19 09:07 02/20/19 09:07 02/20/19 09:07 Doctor's Discharge - Discharge Referrals: CHOLO ROSARIO PA-C [Primary Care Provider] - Follow up as needed
[2019-02-20] MEDS ORDERED: RINGERS SOLUTION,LACTATED 1,000 ML IV ONE (09:40)
--- NOTE | 2019-02-20 09:40 | ER Document Report ---
ED General - General Chief Complaint: Abnormal Lab Results Stated Complaint: ABNORMAL LABS Time Seen by Provider: 02/20/19 09:14 Notes: 79-year-old lady with hypertension chronic kidney disease as well as coronary disease followed by Dr. Kennedy presents with generalized weakness. No nausea vomiting diarrhea but has some nausea yesterday. No focal weakness chest pain fevers cough or any other symptoms. Had labs at [facility] showing acute azotemia in the setting of CKD. Not on dialysis. Labs were done a few days ago. Followed by Dr. Kennedy. TRAVEL OUTSIDE OF THE [place] IN LAST 30 DAYS: No - Related Data Allergies/Adverse Reactions: ezetimibe [From Zetia] Allergy (Verified 06/29/17 18:21) lactose [Lactose] Allergy (Verified 06/29/17 18:21) Past Medical History - Social History Smoking Status: Never Smoker Frequency of alcohol use: None Drug Abuse: None Family History: Reviewed & Not Pertinent Patient has suicidal ideation: No Patient has homicidal ideation: No - Past Medical History Cardiac Medical History: Reports: Hx Coronary Artery Disease, Hx Heart Attack, Hx Hypercholesterolemia, Hx Hypertension Denies: Hx Congestive Heart Failure Pulmonary Medical History: Reports: Hx Pneumonia Denies: Hx Asthma, Hx Bronchitis, Hx COPD, Hx Tuberculosis Neurological Medical History: Denies: Hx Seizures, Hx Parkinson's Disease Endocrine Medical History: Reports: Hx Diabetes Mellitus Type 2 Renal/ Medical History: Denies: Hx End Stage Renal Disease, Hx Kidney Stones, Hx Peritoneal Dialysis GI Medical History: Reports: Hx Gastritis. Denies: Hx Cirrhosis, Hx Gastroesophageal Reflux Disease, Hx Ulcer Musculoskeletal Medical History: Reports Hx Arthritis, Denies Hx Multiple Sclerosis Psychiatric Medical History: Denies: Hx Bipolar Disorder, Hx Depression, Hx Schizophrenia Past Surgical History: Reports: Hx Cardiac Surgery - stents, Hx Coronary Artery Bypass Graft, Hx Hysterectomy, Hx Open Heart Surgery - Immunizations Immunizations up to date: Yes Hx Pneumococcal Vaccination: 02/15/14 Review of Systems - Review of Systems Notes: REVIEW OF SYSTEMS GEN: Fatigueunclear if decreased urine output ENT: Denies sore throat, nasal discharge, ear pain EYES: Denies blurry vision, eye pain, discharge CV: Denies chest pain, palpitations, edema RESP: Denies cough, shortness of breath, wheezing GI: Denies abdominal pain, nausea, vomiting, diarrhea MSK: Denies joint pain/swelling, edema, SKIN: Denies rash, skin lesions LYMPH: Denies swollen glands/lymph nodes NEURO: Denies headache, focal weakness or numbness, dizziness PSYCH: Denies depression, suicidal or homicidal ideation PHYSICAL EXAMINATION General: Elderly frail Head: Atraumatic, normocephalic ENT: Mouth normal, oropharynx moist, no exudates or tonsillar enlargement Eyes: Conjunctiva normal, pupils equal, lids normal Neck: No JVD, supple, no guarding CVS: Normal rate, regular rhythm, no murmurs Resp: No resp distress, equal and normal breath sounds bilaterally GI: Nondistended, soft, no tenderness to palpation, no rebound or guarding Ext: No deformities, no edema, normal range of motion in upper and lower ext Back: No CVA or midline TTP Skin: No rash, warm Lymphatic: No lymphadeopathy noted Neuro: Answer questions but alert and oriented. Slight asterixis. Physical Exam - Vital signs Vitals: Temp Pulse Resp BP Pulse Ox 97.6 F 70 16 113/54 L 100 02/20/19 09:07 02/20/19 09:07 02/20/19 09:07 02/20/19 09:07 02/20/19 09:07 Course - Re-evaluation Re-evalutation: 02/20/19 10:48 Elderly female presents with decreased oral intake and elevated creatinine/BUN on outpatient labs in the setting of CKD. Her physical exam is quite benign and she looks well otherwise dehydrated. Unfortunately she has acute kidney injury on top of her CKD and acute p ancreatitis likely from high blood sugar. She will be given IV fluids. I have ordered her bolusdose insulin. Discussed with Dr. Mendoza, who will follow along if patient admittednot currently on dialysis and no indications right now for acute dialysis. Discussed with hospitalist for admission. - Vital Signs Vital signs: Temp Pulse Resp BP Pulse Ox 97.5 F 70 17 133/71 H 100 02/20/19 11:00 02/20/19 09:07 02/20/19 10:01 02/20/19 10:01 02/20/19 10:01 - Laboratory Result Diagrams: 02/20/19 09:45 02/20/19 09:45 Laboratory results interpreted by me: 02/20/19 02/20/19 02/20/19 09:45 09:45 11:02 Plt Count 144 L Sodium 127.6 L Chloride 84 L BUN 93 H Creatinine 4.44 H Est GFR ( Amer) 12 L Est GFR (MDRD) Non-Af 10 L Glucose 642 H* POC Glucose 538 H* Direct Bilirubin 0.6 H Lipase 1162.5 H Critical Care Note - Critical Care Note Total time excluding time spent on procedures (mins): 32 Comments: The above patient is critically ill. Not including procedures, but including direct re-evaluations, speaking with patient and/or consultants, interpreting results, and documenting, I spent the total amount of minute listed listed above on critical care time Discharge - Discharge Clinical Impression: Hyperglycemia due to type 2 diabetes mellitus Qualifiers: Diabetes mellitus fdc insulin use: with fdc use Qualified Code(s): E11.65 - Type 2 diabetes mellitus with hyperglycemia Condition: Critical Disposition: ADMITTED INPATIENT Admitting Provider: Veronika (Hospitalist) Unit Admitted: Medical Floor
[2019-02-20 10:03] LABS: ABSOLUTE BASOPHILS # (AUTO) 0.1 10^3/uL (0.0-0.2); ABSOLUTE EOSINOPHILS # (AUTO) 0.1 10^3/uL (0.0-0.6); ABSOLUTE LYMPHOCYTES (AUTO) 1.5 10^3/uL (0.5-4.7); ABSOLUTE MONOCYTES (AUTO) 0.9 10^3/uL (0.1-1.4); ABSOLUTE NEUT (AUTO) 7.5 10^3/uL (1.7-8.2); BASOPHILS % (AUTO) 0.5 % (0-2); EOSINOPHILS % (AUTO) 0.6 % (0-6); HEMATOCRIT 39.9 % (36.0-47.0); HEMOGLOBIN 13.4 g/dL (12.0-15.5); LYMPHOCYTES % (AUTO) 14.9 % (13-45); MEAN CORPUSCULAR HEMOGLOBIN 29.8 pg (27.0-33.4); MEAN CORPUSCULAR HGB CONC 33.6 g/dL (32.0-36.0); MEAN CORPUSCULAR VOLUME 89 fl (80-97); PLATELET COUNT 144 10^3/uL (150-450); RED CELL DISTRIBUTION WIDTH 13.5 % (11.5-14.0); TOTAL CELLS COUNTED % (AUTO) 100 %
--- NOTE | 2019-02-20 10:05 | EKG REPORT ---
SEVERITY:- ABNORMAL ECG - SINUS RHYTHM PROBABLE LEFT ATRIAL ABNORMALITY LEFT ANTERIOR FASCICULAR BLOCK LVH WITH SECONDARY REPOLARIZATION ABNORMALITY : Confirmed by: Michelle Arellano 20-Feb-2019 10:04:43
[2019-02-20 10:20] LABS: ALBUMIN 3.8 g/dL (3.5-5.0); ALKALINE PHOSPHATASE 89 U/L (38-126); ANION GAP 18 (5-19); ASPARTATE AMINO TRANSFERASE 25 U/L (14-36); BILIRUBIN,DIRECT 0.6 mg/dL (0.0-0.4); BILIRUBIN,TOTAL 0.7 mg/dL (0.2-1.3); BLOOD UREA NITROGEN 93 mg/dL (7-20); CALCIUM 9.1 mg/dL (8.4-10.2); CARBON DIOXIDE 26 mmol/L (22-30); CHLORIDE 84 mmol/L (98-107); POTASSIUM 4.5 mmol/L (3.6-5.0); TOTAL PROTEIN 7.4 g/dL (6.3-8.2)
[2019-02-20 10:35] LABS: GLUCOSE 642 mg/dL (75-110)
[2019-02-20] MEDS ORDERED: INSULIN REG, HUMAN 100 UNIT/ML 3 ML VIAL (PYX) IV ONE (10:48)
[2019-02-20] MEDS ORDERED: NORMAL SALINE 1000 ML 1,000 ML IV PRN (11:55)
[2019-02-20] MEDS ORDERED: ACETAMINOPHEN 325 MG TABLET PO PRN (11:55)
[2019-02-20] MEDS ORDERED: MAGNESIUM HYDROXIDE SUSP 30 ML UDCUP PO PRN (11:55)
[2019-02-20] MEDS ORDERED: ONDANSETRON HCL INJ/PF 4 MG/2 ML SDV IV PRN (11:55)
[2019-02-20] MEDS ORDERED: DEXTROSE 50%-WATER 25 GM/50 ML DISP.SYRIN IV PRN ×2 (12:02)
[2019-02-20] MEDS ORDERED: DEXTROSE 40% GEL 15 GM TUBE PO PRN ×2 (12:02)
--- NOTE | 2019-02-20 12:19 | PDOC H&P ---
History of Present Illness Admission Date/PCP: 02/20/19 11:14 FCO SARKAR PA-C Patient complains of: Referred by primary care physician to the ER for abnormal labs. History of Present Illness: MYRA RODRIGUEZ is a 79 year old female with history of hypertension, diabetes mellitus, CABG, hypercholesterolemia, chronic kidney disease referred by the primary care physician to the emergency room with abnormal labs. Patient and family denies any problems at home. The work-up in the emergency room shows creatinine of 4.4 jumped from 2.2 baseline and blood sugars are more than 600. She looks extremely volume depleted at the time of my examination. Family wants her to be a full code. Patient denies any nausea vomiting diarrhea or constipation. Denies any fevers. Denies any problems with urination. Denies any headaches dizzy spells or focal neurological deficits. Past Medical History Cardiac Medical History: Reports: Coronary Artery Disease, Myocardial Infarction, Hyperlipidema, Hypertension Denies: Congestive Heart Failure Pulmonary Medical History: Reports: Pneumonia Denies: Asthma, Bronchitis, Chronic Obstructive Pulmonary Disease (COPD), Tuberculosis Neurological Medical History: Denies: Seizures Endocrine Medical History: Reports: Diabetes Mellitus Type 2 Renal/ Medical History: Denies: End Stage Renal Disease GI Medical History: Denies: Cirrhosis, Gastroesophageal Reflux Disease Musculoskeltal Medical History: Reports: Arthritis Psychiatric Medical History: Denies: Bipolar Disorder, Depression Past Surgical History Past Surgical History: Reports: Coronary Artery Bypass Graft, Hysterectomy Social History Information Source: Relative Lives with: Family Smoking Status: Never Smoker Electronic Cigarette use?: No Frequency of Alcohol Use: None Hx Recreational Drug Use: No Drugs: None Hx Prescription Drug Abuse: No - Advance Directive Resuscitation Status: Full Code Family History Family History: Reviewed & Not Pertinent Parental Family History Reviewed: Yes - Family history of hypertension and diabetes mellitus. Children Family History Reviewed: Yes Sibling(s) Family History Reviewed.: Yes Medication/Allergy Home Medications: Amlodipine Besylate [Norvasc 5 mg Tablet] 5 mg PO DAILY 06/29/17 Carvedilol [Coreg 12.5 mg Tablet] 12.5 mg PO Q12 06/29/17 Famotidine [Pepcid] 20 mg PO Q12 06/29/17 Furosemide [Lasix 40 mg Tablet] 40 mg PO QAM 06/29/17 Levothyroxine Sodium [Synthroid 0.088 mg Tablet] 0.088 mg PO DAILY 06/29/17 Losartan Potassium [Cozaar 100 mg Tablet] 100 mg PO DAILY 06/29/17 Nitroglycerin [Nitrostat] 0.6 mg SL Q5MP PRN 06/29/17 Rosuvastatin Calcium [Crestor 20 mg Tablet] 20 mg PO DAILY 06/29/17 Allergies/Adverse Reactions: ezetimibe [From Zetia] Allergy (Verified 06/29/17 18:21) lactose [Lactose] Allergy (Verified 06/29/17 18:21) Review of Systems Constitutional: ABSENT: fever(s), headache(s), night sweats, weakness Eyes: ABSENT: visual disturbances Ears: ABSENT: hearing changes Nose, Mouth, and Throat: ABSENT: sore throat Cardiovascular: ABSENT: orthropnea, palpitations Respiratory: ABSENT: dyspnea, hemoptysis Gastrointestinal: ABSENT: constipation, diarrhea, dysphagia, heartburn, he matemesis Genitourinary: ABSENT: dysuria, hematuria Musculoskeletal: ABSENT: deformity, joint swelling Neurological: ABSENT: abnormal gait, abnormal speech, confusion, dizziness, focal weakness, syncope Psychiatric: ABSENT: anxiety, depression, homidical ideation, suicidal ideation Physical Exam Vital Signs: Temp Pulse Resp BP Pulse Ox 97.5 F 70 17 133/71 H 100 02/20/19 11:00 02/20/19 09:07 02/20/19 10:01 02/20/19 10:01 02/20/19 10:01 Intake & Output 02/19/19 02/20/19 02/21/19 06:59 06:59 06:59 Intake Total 1000 Balance 1000 Weight 56.2 kg General appearance: PRESENT: no acute distress, disheveled, thin Head exam: PRESENT: atraumatic Eye exam: PRESENT: PERRLA Mouth exam: PRESENT: moist, tongue midline Neck exam: ABSENT: carotid bruit, JVD, lymphadenopathy, thyromegaly Respiratory exam: PRESENT: decreased breath sounds Cardiovascular exam: PRESENT: RRR. ABSENT: diastolic murmur, rubs, systolic murmur Rectal exam: PRESENT: deferred Extremities exam: PRESENT: full ROM. ABSENT: calf tenderness, clubbing, pedal edema Neurological exam: PRESENT: alert, awake, oriented to person, oriented to place, oriented to time, oriented to situation, CN II-XII grossly intact. ABSENT: motor sensory deficit Psychiatric exam: PRESENT: appropriate affect, normal mood. 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 Dietary consult was requested. Hemoglobin A1c is requested. Compliance with medications discussed with the patient and the family. Patient is going to be admitted as inpatient. (2) Chronic kidney disease, stage IV (severe) Is this a current diagnosis for this admission?: Yes Plan: 02/20/2019-patient came in with serum creatinine of 4.4 baseline creatinine is around 2.2 acute on chronic kidney injury most likely secondary to prerenal causes including uncontrolled diabetes mellitus. Patient was given 1 L of Ringer lactate in the ER to continue IV fluids normal saline at 125 cc/h. Renal ultrasound was requested. Consultation with Dr. Mendoza was requested. Serum potassium is 4.5. (3) Coronary artery disease Qualifiers: (4) Hypertension Qualifiers: Is this a current diagnosis for this admission?: No Plan: 02/20/2019-patient has history of hypertension she takes Lasix, amlodipine, losartan, hydralazine , coreg at home to hold most of her blood pressure medications. And presently on normal saline 125 cc/h. (5) Type 2 diabetes mellitus Qualifiers: (6) Hyponatremia Is this a current diagnosis for this admission?: Yes Plan: 02/20/2019-patient came in serum sodium of 127 blood sugars are more than 600 corrected serum sodium is within normal limits. And is presently on normal saline at 125 cc/h. (7) Hx of CABG Is this a current diagnosis for this admission?: No Plan: 02/20/2019-patient has history of coronary artery disease status post bypass. No complaints of chest pain.
[2019-02-20 12:38] LABS: CREATINE KINASE MB 4.99 ng/mL (<4.55)
[2019-02-20 12:44] LABS: TROPONIN I 0.083 ng/mL
[2019-02-20 13:20] LABS: APPEARANCE,URINE CLEAR; BILIRUBIN,URINE NEGATIVE (NEGATIVE); COLOR,URINE STRAW; GLUCOSE, URINE >=500 mg/dL (NEGATIVE); KETONES,URINE NEGATIVE (NEGATIVE); LEUKOCYTE ESTERASE,URINE NEGATIVE (NEGATIVE); NITRITE,URINE NEGATIVE (NEGATIVE); PROTEIN,URINE 30 mg/dL (NEGATIVE); UROBILINOGEN,URINE NEGATIVE mg/dL (<2.0)
[2019-02-20] MEDS ORDERED: INSULIN REG, HUMAN 100 UNIT/ML 3 ML VIAL (PYX) SUBCUT ONE (14:13)
[2019-02-20] MEDS: HEPARIN SOD (PORCINE) 5,000 UNIT/ML 1 ML VIAL SUBCUT SCH ×2 (14:35→21:24)
--- NOTE | 2019-02-20 16:48 | RADIOLOGY REPORT (SQ) ---
EXAM DESCRIPTION: U/S RETROPERITON LTD COMPLETED DATE/TIME: 02/20/2019 4:04 pm REASON FOR STUDY: ckd COMPARISON: None. TECHNIQUE: Dynamic and static grayscale images acquired of the kidneys and bladder and recorded on P ACS. Additional selected color Doppler and spectral images recorded. LIMITATIONS: Limited exam secondary to bowel gas FINDINGS: RIGHT KIDNEY: Borderline small measuring 9.4 cm. Increased echogenicity. No solid or suspicious masses. No hydronephrosis. No calcifications. LEFT KIDNEY: Minimal visualization. BLADDER: Decompressed with Mcdonough catheter. OTHER FINDINGS: No other significant finding. IMPRESSION: Left kidney incompletely visualized secondary to overlying bowel gas. Right kidney without hydronephrosis. Decompressed urinary bladder with Mcdonough catheter. TECHNICAL DOCUMENTATION: JOB ID: [id number] [employer]- All Rights Reserved Reading location - IP/workstation name: [email or web address]
[2019-02-20] MEDS: INSULIN REG, HUMAN 100 UNIT/ML 3 ML VIAL (PYX) SUBCUT SCH ×2 (17:38→22:00)
[2019-02-20] MEDS: DOCUSATE SODIUM 100 MG CAPSULE PO SCH (17:38)
[2019-02-20 18:37] LABS: CREATINE KINASE MB 4.92 ng/mL (<4.55)
[2019-02-20 18:44] LABS: TROPONIN I 0.093 ng/mL
[2019-02-20] MEDS: ZOLPIDEM TARTRATE 5 MG TABLET PO SCH (21:23)
[2019-02-20] MEDS ORDERED: FAMOTIDINE 20 MG TABLET PO SCH (22:00)
[2019-02-20] MEDS: INSULIN GLARGINE,HUM.REC.ANLOG 1,000 UNIT/10 ML VIAL SUBCUT SCH (22:00)
[2019-02-21 00:57] LABS: CREATINE KINASE MB 4.57 ng/mL (<4.55); TROPONIN I 0.101 ng/mL
[2019-02-21] MEDS: HEPARIN SOD (PORCINE) 5,000 UNIT/ML 1 ML VIAL SUBCUT SCH ×3 (05:08→21:30)
[2019-02-21 07:07] LABS: ABSOLUTE EOSINOPHILS # (AUTO) 0.1 10^3/uL (0.0-0.6); ABSOLUTE LYMPHOCYTES (AUTO) 2.2 10^3/uL (0.5-4.7); ABSOLUTE MONOCYTES (AUTO) 1.1 10^3/uL (0.1-1.4); ABSOLUTE NEUT (AUTO) 6.8 10^3/uL (1.7-8.2); BASOPHILS % (AUTO) 0.2 % (0-2); HEMATOCRIT 38.7 % (36.0-47.0); HEMOGLOBIN 13.2 g/dL (12.0-15.5); LYMPHOCYTES % (AUTO) 21.2 % (13-45); MEAN CORPUSCULAR HEMOGLOBIN 29.5 pg (27.0-33.4); MEAN CORPUSCULAR HGB CONC 34.2 g/dL (32.0-36.0); MEAN CORPUSCULAR VOLUME 86 fl (80-97); MONOCYTES % (AUTO) 10.9 % (3-13); PLATELET COUNT 145 10^3/uL (150-450); RED BLOOD COUNT 4.49 10^6/uL (3.72-5.28); RED CELL DISTRIBUTION WIDTH 13.4 % (11.5-14.0); SEGMENTED NEUTROPHILS % (AUTO) 66.7 % (42-78); TOTAL CELLS COUNTED % (AUTO) 100 %; WHITE BLOOD COUNT 10.2 10^3/uL (4.0-10.5)
[2019-02-21 07:11] LABS: INTERNATIONAL RATION (INR) 1.02; PROTHROMBIN TIME 13.4 SEC (11.4-15.4)
[2019-02-21 07:35] LABS: ALBUMIN 3.5 g/dL (3.5-5.0); ALKALINE PHOSPHATASE 80 U/L (38-126); ANION GAP 15 (5-19); ASPARTATE AMINO TRANSFERASE 32 U/L (14-36); BILIRUBIN,DIRECT 0.5 mg/dL (0.0-0.4); BILIRUBIN,TOTAL 0.6 mg/dL (0.2-1.3); BLOOD UREA NITROGEN 78 mg/dL (7-20); CALCIUM 9.3 mg/dL (8.4-10.2); CARBON DIOXIDE 25 mmol/L (22-30); CHLORIDE 94 mmol/L (98-107); CHOLESTEROL 190.15 mg/dL (0-200); GLUCOSE 224 mg/dL (75-110); POTASSIUM 3.7 mmol/L (3.6-5.0); TOTAL PROTEIN 7.1 g/dL (6.3-8.2); TRIGLYCERIDES 75 mg/dL (<150)
[2019-02-21 07:46] LABS: DIRECT LDL 95 mg/dL (<100)
[2019-02-21] MEDS: DOCUSATE SODIUM 100 MG CAPSULE PO SCH ×2 (09:06→17:17)
[2019-02-21] MEDS: INSULIN REG, HUMAN 100 UNIT/ML 3 ML VIAL (PYX) SUBCUT SCH ×4 (09:07→21:40)
[2019-02-21] MEDS: INSULIN GLARGINE,HUM.REC.ANLOG 1,000 UNIT/10 ML VIAL SUBCUT SCH (10:32)
--- NOTE | 2019-02-21 10:42 | PDOC CONSULTATION ---
Consultation Consult Date: 02/21/19 Provider Consulted: BONILLA OCASIO Consult reason:: KYRA History of Present Illness Admission Date/PCP: 02/20/19 11:14 FCO SARKAR PA-C History of Present Illness: MYRA RODRIGUEZ is a 79 year old female with history of hypertension, diabetes mellitus, CABG, hypercholesterolemia, chronic kidney disease. She was sent to the ER by her primary care physician to the emergency room with abnormal labs of an elevated creatinine and blood sugar. Patient denies any problems at home.The son who was at bedside this morning disagreed. He states that she had been n auseas w/o vomiting and somewhat of a looser bowel movement for the past couple of days. The work-up in the emergency room showed an elevated creatinine of 4.4 and blood sugars were more than 600. Creatinine for the past few visits with me has been at 2.7. According to the son they still had not been checking blood sugars despite at last visit discussing taking it daily. Since arriving at the hospital she has been given insulin, LR 1L and then started on NS at 125mL an hour. She also had a renal ultrasound that did not show any obstruction around the bladder or right kidney. Left kidney was not able to be visualized due to bowel gas. This morning she denies chest pain, SOB, n/v/d/c. She is tolerating eating and drinking with no issues. Past Medical History Cardiac Medical History: Reports: Coronary Artery Disease, Hyperlipidemia, Myocardial Infarction Pulmonary Medical History: Reports: Pneumonia Denies: Asthma, Bronchitis, Chronic Obstructive Pulmonary Disease (COPD), Tuberculosis Neurological Medical History: Denies: Seizures Endocrine Medical History: Reports: Diabetes Mellitus Type 2 Renal/ Medical History: Denies: Benign Prostatic Hyperplasia, End Stage Renal Disease GI Medical History: Denies: Cirrhosis, Gastroesophageal Reflux Disease Musculoskeltal Medical History: Reports: Arthritis Psychiatric Medical History: Denies: Bipolar Disorder, Depression Past Surgical History Past Surgical History: Reports: Coronary Artery Bypass Graft, Hysterectomy Social History Lives with: Family Smoking Status: Never Smoker Electronic Cigarette use?: No Frequency of Alcohol Use: None Hx Recreational Drug Use: No Drugs: None Hx Prescription Drug Abuse: No - Advance Directive Resuscitation Status: Full Code Family History Parental Family History Reviewed: No Children Family History Reviewed: Yes Sibling(s) Family History Reviewed.: Yes Medication/Allergy Home Medications: Calcitriol [Rocaltrol 0.25 mcg Capsule] 0.25 mcg PO MOWEFR@1000 02/20/19 Carvedilol [Coreg 12.5 mg Tablet] 12.5 mg PO Q12 02/20/19 Donepezil HCl [Aricept 5 mg Tablet] 5 mg PO DAILY 02/20/19 Famotidine [Pepcid 20 mg Tablet] 20 mg PO BID 02/20/19 Furosemide [Lasix 40 mg Tablet] 40 mg PO DAILY 02/20/19 Hydralazine HCl [Apresoline 25 mg Tablet] 50 mg PO Q8 02/20/19 Isosorbide Mononitrate [Imdur 30 mg Tablet.er] 30 mg PO QAM 02/20/19 Levothyroxine Sodium [Synthroid 0.088 mg Tablet] 88 mcg PO Q6AM 02/20/19 Linagliptin [Tradjenta] 5 mg PO DAILY 02/20/19 Pramipexole Di-HCl [Pramipexole Dihydrochloride] 0.125 mg PO QHS 02/20/19 Promethazine HCl [Phenergan 25 mg Tablet] 12.5 mg PO Q6HP PRN 02/20/19 Rosuvastatin Calcium [Crestor 20 mg Tablet] 20 mg PO DAILY 02/20/19 Allergies/Adverse Reactions: ezetimibe [From Zetia] Allergy (Verified 06/29/17 18:21) lactose [Lactose] Allergy (Verified 06/29/17 18:21) Review of Systems Constitutional: ABSENT: chills, fever(s), weakness Eyes: ABSENT: visual disturbances Nose, Mouth, and Throat: ABSENT: headache(s) Cardiovascular: ABSENT: chest pain, dyspnea on exertion, edema, orthropnea Gastrointestinal: PRESENT: diarrhea - -according to son, nausea - -prior to coming to the hospital. ABSENT: constipation, vomiting Genitourinary: ABSENT: difficulty urinating, dysuria, hematuria, nocturia Neurological: PRESENT: confusion. ABSENT: focal weakness, weakness Psychiatric: ABSENT: anxiety, depression Physical Exam Vital Signs: Temp Pulse Resp BP Pulse Ox 97.6 F 74 16 141/72 H 100 02/21/19 07:33 02/21/19 07:33 02/21/19 07:33 02/21/19 07:33 02/21/19 07:33 Intake & Output 02/20/19 02/21/19 02/22/19 06:59 06:59 06:59 Intake Total 1000 Output Total 1600 Balance -600 Weight 56.1 kg General appearance: PRESENT: no acute distress, well-developed, well-nourished Eye exam: PRESENT: PERRLA. ABSENT: scleral icterus Mouth exam: PRESENT: dry mucosa, neck supple Neck exam: ABSENT: JVD, tracheal deviation Respiratory exam: PRESENT: clear to auscultation saqib. ABSENT: accessory muscle use, crackles, rales, rhonchi, wheezes Cardiovascular exam: PRESENT: RRR, +S1, +S2 GI/Abdominal exam: PRESENT: soft. ABSENT: ascites, distended, guarding, rebound, tenderness Extremities exam: ABSENT: pedal edema, tenderness, +1 edema, +2 edema Musculoskeletal exam: PRESENT: normal inspection. ABSENT: tenderness Neurological exam: PRESENT: alert, altered - -moments of confusion, awake, oriented to person, oriented to place, oriented to time Psychiatric exam: PRESENT: appropriate affect, normal mood Skin exam: PRESENT: dry, intact, warm Results Laboratory Results: 02/21/19 06:30 02/21/19 06:30 02/20/19 02/20/19 02/20/19 09:45 09:45 12:59 WBC 10.0 RBC 4.50 Hgb 13.4 Hct 39.9 MCV 89 MCH 29.8 MCHC 33.6 RDW 13.5 Plt Count 144 L Seg Neutrophils % 75.0 Sodium 127.6 L Potassium 4.5 Chloride 84 L Carbon Dioxide 26 Anion Gap 18 BUN 93 H Creatinine 4.44 H Est GFR ( Amer) 12 L Glucose 642 H* Calcium 9.1 Magnesium Total Bilirubin 0.7 AST 25 Alkaline Phosphatase 89 Total Protein 7.4 Albumin 3.8 Triglycerides Cholesterol LDL Cholesterol Direct VLDL Cholesterol HDL Cholesterol Lipase 1162.5 H TSH Urine Color STRAW Urine Appearance CLEAR Urine pH 6.0 Ur Specific [place] 1.010 Urine Protein 30 H Urine Glucose (UA) >=500 H Urine Ketones NEGATIVE Urine Blood SMALL H Urine Nitrite NEGATIVE Ur Leukocyte Esterase NEGATIVE Urine WBC (Auto) 1 Urine RBC (Auto) 0 02/21/19 02/21/19 02/21/19 06:30 06:30 06:30 WBC 10.2 RBC 4.49 Hgb 13.2 Hct 38.7 MCV 86 MCH 29.5 MCHC 34.2 RDW 13.4 Plt Count 145 L Seg Neutrophils % 66.7 Sodium 134.1 L Potassium 3.7 Chloride 94 L Carbon Dioxide 25 Anion Gap 15 BUN 78 H Creatinine 3.67 H Est GFR ( Amer) 15 L Glucose 224 H Calcium 9.3 Magnesium 2.4 H Total Bilirubin 0.6 AST 32 Alkaline Phosphatase 80 Total Protein 7.1 Albumin 3.5 Triglycerides 75 Cholesterol 190.15 LDL Cholesterol Direct 95 VLDL Cholesterol 15.0 HDL Cholesterol 64 Lipase 425.8 H TSH 0.77 Urine Color Urine Appearance Urine pH Ur Specific [place] Urine Protein Urine Glucose (UA) Urine Ketones Urine Blood Urine Nitrite Ur Leukocyte Esterase Urine WBC (Auto) Urine RBC (Auto) 02/20/19 02/20/19 02/20/19 09:45 09:45 17:41 Creatine Kinase 50 48 CK-MB (CK-2) 4.99 H Troponin I 0.083 NT-Pro-B Natriuret Pep 02/20/19 02/21/19 02/21/19 17:41 00:26 00:26 Creatine Kinase 56 CK-MB (CK-2) 4.92 H 4.57 H Troponin I 0.093 0.101 NT-Pro-B Natriuret Pep 02/21/19 06:30 Creatine Kinase CK-MB (CK-2) Troponin I NT-Pro-B Natriuret Pep 5390 H Impressions: Renal Ultrasound 02/20/19 00:00 IMPRESSION: Left kidney incompletely visualized secondary to overlying bowel gas. Right kidney without hydronephrosis. Decompressed urinary bladder with Mcdonough catheter. Assessment & Plan - Diagnosis (1) Chronic kidney disease, stage IV (severe) Is this a current diagnosis for this admission?: No Plan: Nonoliguric KYRA due to dehydration. Continue off all diuretics for now. Continue on normal saline, will look to decrease it to 75mL an hour and allow to orally rehydrate also. She has significant history of easily getting fluid overloaded. Baseline creatinine has been around 2.7 at the past few visits as outpatient. 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 Advised the son to check her blood sugars daily when she is discharged from the hospital. He was wanting to get home health aid to assist in checking her blood sugars. (3) Hypertension Qualifiers: Is this a current diagnosis for this admission?: No Plan: controlled for now without medications. Vasodilators are recommended if bp at some point requires medication. (4) Hyponatremia Is this a current diagnosis for this admission?: Yes Plan: Looks to have been pseudoohyponatremia due to the severely elevated blood glucose. Corrected sodium from initial labs is 135 to 136. Continue with normal saline (5) Type 2 diabetes mellitus Qualifiers: Plan: advised on checking blood sugars daily at home once the patient is discharged from the hospital.
--- NOTE | 2019-02-21 15:15 | PDOC PROGRESS REPORT ---
Subjective Progress Note for:: 02/21/19 Subjective:: The patient is sitting in bed. She does not appear to be in distress. She keeps speaking through the curtains the 2 beds in her room. She has no acute complaints. Reason For Visit: ACUTE ON CHRONIC KIDNEY INJURY Physical Exam Vital Signs: Temp Pulse Resp BP Pulse Ox 97.9 F 74 18 108/53 L 100 02/21/19 11:18 02/21/19 11:18 02/21/19 11:18 02/21/19 11:18 02/21/19 11:18 Intake & Output 02/20/19 02/21/19 02/22/19 06:59 06:59 06:59 Intake Total 1000 237 Output Total 1600 225 Balance -600 12 Weight 56.1 kg General appearance: PRESENT: no acute distress, cooperative, thin, well- developed, other - Patient is wearing a wig Head exam: PRESENT: atraumatic, normocephalic Eye exam: PRESENT: conjunctiva pale. ABSENT: scleral icterus Ear exam: PRESENT: normal external ear exam. ABSENT: bleeding, drainage Mouth exam: PRESENT: moist, tongue midline Teeth exam: PRESENT: poor dentation Respiratory exam: PRESENT: clear to auscultation saqib, symmetrical, unlabored. ABSENT: rales, rhonchi, tachypnea, wheezes Cardiovascular exam: PRESENT: diastolic murmur - 3/6, RRR, +S1, +S2 GI/Abdominal exam: PRESENT: normal bowel sounds, soft. ABSENT: distended, guarding, tenderness Rectal exam: PRESENT: deferred Neurological exam: PRESENT: alert, awake, oriented to person, oriented to place, oriented to situation Psychiatric exam: PRESENT: flat affect. ABSENT: agitated, anxious Skin exam: PRESENT: dry, normal color, warm Results Laboratory Results: 02/21/19 06:30 02/21/19 06:30 02/21/19 02/21/19 02/21/19 06:30 06:30 06:30 WBC 10.2 RBC 4.49 Hgb 13.2 Hct 38.7 MCV 86 MCH 29.5 MCHC 34.2 RDW 13.4 Plt Count 145 L Seg Neutrophils % 66.7 Sodium 134.1 L Potassium 3.7 Chloride 94 L Carbon Dioxide 25 Anion Gap 15 BUN 78 H Creatinine 3.67 H Est GFR ( Amer) 15 L Glucose 224 H Calcium 9.3 Magnesium 2.4 H Total Bilirubin 0.6 AST 32 Alkaline Phosphatase 80 Total Protein 7.1 Albumin 3.5 Triglycerides 75 Cholesterol 190.15 LDL Cholesterol Direct 95 VLDL Cholesterol 15.0 HDL Cholesterol 64 Lipase 425.8 H TSH 0.77 02/20/19 02/20/19 02/20/19 09:45 09:45 17:41 Creatine Kinase 50 48 CK-MB (CK-2) 4.99 H Troponin I 0.083 NT-Pro-B Natriuret Pep 02/20/19 02/21/19 02/21/19 17:41 00:26 00:26 Creatine Kinase 56 CK-MB (CK-2) 4.92 H 4.57 H Troponin I 0.093 0.101 NT-Pro-B Natriuret Pep 02/21/19 06:30 Creatine Kinase CK-MB (CK-2) Troponin I NT-Pro-B Natriuret Pep 5390 H Impressions: Renal Ultrasound 02/20/19 00:00 IMPRESSION: Left kidney incompletely visualized secondary to overlying bowel gas. Right kidney without hydronephrosis. Decompressed urinary bladder with Mcdonough catheter. Assessment and Plan - Diagnosis (1) Acute pancreatitis Qualifiers: Pancreatitis type: drug induced Acute pancreatitis complication: no infection or necrosis Qualified Code(s): K85.30 - Drug induced acute pancreatitis without necrosis or infection Is this a current diagnosis for this admission?: Yes (2) Hyperglycemia due to type 2 diabetes mellitus Qualifiers: Diabetes mellitus care home insulin use: with care home use Qualified Code(s): E11.65 - Type 2 diabetes mellitus with hyperglycemia; Z79.4 - snf (current) use of insulin Is this a current diagnosis for this admission?: Yes (3) Chronic kidney disease, stage IV (severe) Is this a current diagnosis for this admission?: Yes (4) Coronary artery disease Qualifiers: Coronary Disease-Associated Artery/Lesion type: [place] artery Is this a current diagnosis for this admission?: Yes (5) Hypertension Qualifiers: Hypertension type: essential hypertension Is this a current diagnosis for this admission?: Yes (6) Hyponatremia Is this a current diagnosis for this admission?: Yes - Plan Summary Summary: 02/21/2019- Pancreatitis-the patient's lipase on admission was 1100. It dropped to 400. She is tolerating an oral diet. The pancreatitis was most likely due to the Tradjenta. This is on hold and we are using insulin only for her diabetes at this time. Diabetes mellitus-she is on Lantus 10 units twice daily. Will adjust based on sliding scale requirements. Holding Tradjenta as it is likely the etiology of her pancreatitis Chronic kidney disease stage IV-patient has been getting some IV fluids. Creatinine is slightly improved. Will need to monitor for fluid retention. Nephrology is following. Hypertension-blood pressures are quite labile. Continue current regimen and monitor. Adjust medications based on blood pressure readings. Coronary artery disease-continue current medications. No evidence of acute coronary syndrome at this time. Hyponatremia-when corrected for the hyperglycemia (glucose 600 on admission) the serum sodium is just in the lower normal range. We will continue to monitor. - Time Time Spent with patient: 15-24 minutes Medications reviewed and adjusted accordingly: Yes Anticipated discharge: Home with Homehealth
[2019-02-21] MEDS: NORMAL SALINE 1000 ML 1,000 ML IV PRN (19:19)
[2019-02-21] MEDS: ZOLPIDEM TARTRATE 5 MG TABLET PO SCH (21:39)
[2019-02-22] MEDS: INSULIN GLARGINE,HUM.REC.ANLOG 1,000 UNIT/10 ML VIAL SUBCUT SCH ×3 (05:37→22:10)
[2019-02-22] MEDS: HEPARIN SOD (PORCINE) 5,000 UNIT/ML 1 ML VIAL SUBCUT SCH ×3 (05:38→22:06)
[2019-02-22] MEDS: NORMAL SALINE 1000 ML 1,000 ML IV PRN (09:16)
[2019-02-22] MEDS: DOCUSATE SODIUM 100 MG CAPSULE PO SCH ×2 (09:17→17:35)
[2019-02-22] MEDS: INSULIN REG, HUMAN 100 UNIT/ML 3 ML VIAL (PYX) SUBCUT SCH ×4 (09:18→21:32)
[2019-02-22 09:38] LABS: ABSOLUTE EOSINOPHILS # (AUTO) 0.1 10^3/uL (0.0-0.6); ABSOLUTE LYMPHOCYTES (AUTO) 2.3 10^3/uL (0.5-4.7); ABSOLUTE NEUT (AUTO) 6.1 10^3/uL (1.7-8.2); BASOPHILS % (AUTO) 0.3 % (0-2); HEMATOCRIT 36.2 % (36.0-47.0); HEMOGLOBIN 12.2 g/dL (12.0-15.5); LYMPHOCYTES % (AUTO) 23.9 % (13-45); MEAN CORPUSCULAR HEMOGLOBIN 29.6 pg (27.0-33.4); MEAN CORPUSCULAR HGB CONC 33.8 g/dL (32.0-36.0); MEAN CORPUSCULAR VOLUME 88 fl (80-97); MONOCYTES % (AUTO) 10.7 % (3-13); PLATELET COUNT 151 10^3/uL (150-450); RED BLOOD COUNT 4.13 10^6/uL (3.72-5.28); RED CELL DISTRIBUTION WIDTH 13.6 % (11.5-14.0); SEGMENTED NEUTROPHILS % (AUTO) 64.1 % (42-78); TOTAL CELLS COUNTED % (AUTO) 100 %; WHITE BLOOD COUNT 9.6 10^3/uL (4.0-10.5)
[2019-02-22 09:59] LABS: ANION GAP 11 (5-19); BLOOD UREA NITROGEN 58 mg/dL (7-20); CALCIUM 8.5 mg/dL (8.4-10.2); CARBON DIOXIDE 23 mmol/L (22-30); CHLORIDE 103 mmol/L (98-107); GLUCOSE 218 mg/dL (75-110); POTASSIUM 3.5 mmol/L (3.6-5.0)
[2019-02-22] MEDS ORDERED: FAMOTIDINE 20 MG TABLET PO SCH (10:00)
--- NOTE | 2019-02-22 13:25 | PDOC PROGRESS REPORT ---
Subjective Progress Note for:: 02/22/19 Subjective:: Patient was seen sitting up in her bed. At the time she had no concerns. She denied chest pain, SOB, n/v/d/c. She still appears to have some moments of confusion. Despite the confusion sometimes she was A&Ox3. Reason For Visit: ACUTE ON CHRONIC KIDNEY INJURY Physical Exam Vital Signs: Temp Pulse Resp BP Pulse Ox 98.2 F 75 16 102/51 L 100 02/22/19 11:10 02/22/19 11:10 02/22/19 11:10 02/22/19 11:10 02/22/19 11:10 Intake & Output 02/21/19 02/22/19 02/23/19 06:59 06:59 06:59 Intake Total 9910 529 8667 Output Total 1600 1600 425 Balance -600 -883 875 Weight 56.1 kg 54 kg General appearance: PRESENT: no acute distress, well-developed, well-nourished Eye exam: PRESENT: PERRLA. ABSENT: scleral icterus Mouth exam: PRESENT: dry mucosa, neck supple - e Neck exam: ABSENT: JVD, tracheal deviation Respiratory exam: PRESENT: clear to auscultation saqib. ABSENT: accessory muscle use, crackles, rales, rhonchi, wheezes Cardiovascular exam: PRESENT: RRR, +S1, +S2 GI/Abdominal exam: PRESENT: soft. ABSENT: ascites, distended, guarding, rebound, tenderness Extremities exam: ABSENT: tenderness, +1 edema, +2 edema Musculoskeletal exam: PRESENT: normal inspection. ABSENT: tenderness Neurological exam: PRESENT: alert, altered, awake, oriented to person, oriented to place, oriented to time Psychiatric exam: PRESENT: anxious, appropriate affect, normal mood Skin exam: PRESENT: dry, intact, warm Results Laboratory Results: 02/22/19 08:49 02/22/19 08:49 02/22/19 02/22/19 08:49 08:49 WBC 9.6 RBC 4.13 Hgb 12.2 Hct 36.2 MCV 88 MCH 29.6 MCHC 33.8 RDW 13.6 Plt Count 151 Seg Neutrophils % 64.1 Sodium 137.3 Potassium 3.5 L Chloride 103 Carbon Dioxide 23 Anion Gap 11 BUN 58 H Creatinine 2.98 H Est GFR ( Amer) 18 L Glucose 218 H Calcium 8.5 02/20/19 12:59 Catheterized Urine Urine Culture - Final NO GROWTH 2 DAYS 02/20/19 02/20/19 02/20/19 09:45 09:45 17:41 Creatine Kinase 50 48 CK-MB (CK-2) 4.99 H Troponin I 0.083 NT-Pro-B Natriuret Pep 02/20/19 02/21/19 02/21/19 17:41 00:26 00:26 Creatine Kinase 56 CK-MB (CK-2) 4.92 H 4.57 H Troponin I 0.093 0.101 NT-Pro-B Natriuret Pep 02/21/19 06:30 Creatine Kinase CK-MB (CK-2) Troponin I NT-Pro-B Natriuret Pep 5390 H Impressions: Renal Ultrasound 02/20/19 00:00 IMPRESSION: Left kidney incompletely visualized secondary to overlying bowel gas. Right kidney without hydronephrosis. Decompressed urinary bladder with Mcdonough catheter. Assessment & Plan - Diagnosis (1) Chronic kidney disease, stage IV (severe) Is this a current diagnosis for this admission?: No Plan: Looks to be near her baseline. Continue with with normal saline at 75mL an hour. Patient is stable from the renal standpoint. Would like to follow up with labs 14 days after discharge (2) Hyperglycemia due to type 2 diabetes mellitus Qualifiers: Diabetes mellitus terminal supervisor insulin use: with terminal supervisor use Qualified Code(s): E11.65 - Type 2 diabetes mellitus with hyperglycemia; Z79.4 - prison (current) use of insulin Is this a current diagnosis for this admission?: Yes Plan: discussed again taking insulin and checking blood sugars daily. (3) Hypokalemia Plan: mostly due dilution and giving more insulin. Will give her a klor con tab 10mEQ. reassess tomorrow for possible daily potassium supplements. (4) Hypertension Qualifiers: Is this a current diagnosis for this admission?: No Plan: controlled (5) Hyponatremia Is this a current diagnosis for this admission?: Yes Plan: stable (6) Type 2 diabetes mellitus Qualifiers:
[2019-02-22] MEDS ORDERED: POTASSIUM CHLORIDE 10 MEQ TABLET.ER PO ONE (14:00)
[2019-02-22] MEDS: GLIPIZIDE XL 2.5 MG TAB.ER.24 PO SCH (17:35)
--- NOTE | 2019-02-22 17:55 | PDOC PROGRESS REPORT ---
Subjective Progress Note for:: 02/22/19 Subjective:: The patient is sitting in bed waiting for her lunch. Several family members are at the bedside. She appears quite comfortable. She is on room air and breathing normally. She has no complaints at this time other than wondering when she will be able to leave. Reason For Visit: ACUTE ON CHRONIC KIDNEY INJURY Physical Exam Vital Signs: Temp Pulse Resp BP Pulse Ox 98.2 F 76 16 102/51 L 100 02/22/19 11:10 02/22/19 14:00 02/22/19 11:10 02/22/19 11:10 02/22/19 11:10 Intake & Output 02/21/19 02/22/19 02/23/19 06:59 06:59 06:59 Intake Total 5357 659 7458 Output Total 1600 1600 425 Balance -600 -883 875 Weight 56.1 kg 54 kg General appearance: PRESENT: no acute distress, cooperative, thin, well-develope d Head exam: PRESENT: atraumatic, normocephalic, other - Wearing a wig Eye exam: PRESENT: conjunctiva pale. ABSENT: scleral icterus Ear exam: PRESENT: normal external ear exam. ABSENT: bleeding, drainage Mouth exam: PRESENT: moist, tongue midline Respiratory exam: PRESENT: clear to auscultation saqib, symmetrical, unlabored. ABSENT: accessory muscle use, rales, rhonchi, tachypnea, wheezes Cardiovascular exam: PRESENT: diastolic murmur - 3/6, RRR, +S1, +S2 GI/Abdominal exam: PRESENT: normal bowel sounds, soft. ABSENT: distended, guarding, tenderness Rectal exam: PRESENT: deferred Extremities exam: ABSENT: pedal edema Musculoskeletal exam: PRESENT: ambulatory, other - Decreased muscle mass. ABSENT: deformity Neurological exam: PRESENT: alert, awake, oriented to person, oriented to place, oriented to situation, CN II-XII grossly intact Psychiatric exam: PRESENT: appropriate affect, normal mood. ABSENT: agitated, anxious Skin exam: PRESENT: dry, warm. ABSENT: rash Results Laboratory Results: 02/22/19 08:49 02/22/19 08:49 02/22/19 02/22/19 08:49 08:49 WBC 9.6 RBC 4.13 Hgb 12.2 Hct 36.2 MCV 88 MCH 29.6 MCHC 33.8 RDW 13.6 Plt Count 151 Seg Neutrophils % 64.1 Sodium 137.3 Potassium 3.5 L Chloride 103 Carbon Dioxide 23 Anion Gap 11 BUN 58 H Creatinine 2.98 H Est GFR ( Amer) 18 L Glucose 218 H Calcium 8.5 02/20/19 12:59 Catheterized Urine Urine Culture - Final NO GROWTH 2 DAYS 02/20/19 02/20/19 02/20/19 09:45 09:45 17:41 Creatine Kinase 50 48 CK-MB (CK-2) 4.99 H Troponin I 0.083 NT-Pro-B Natriuret Pep 02/20/19 02/21/19 02/21/19 17:41 00:26 00:26 Creatine Kinase 56 CK-MB (CK-2) 4.92 H 4.57 H Troponin I 0.093 0.101 NT-Pro-B Natriuret Pep 02/21/19 06:30 Creatine Kinase CK-MB (CK-2) Troponin I NT-Pro-B Natriuret Pep 5390 H Impressions: Renal Ultrasound 02/20/19 00:00 IMPRESSION: Left kidney incompletely visualized secondary to overlying bowel gas. Right kidney without hydronephrosis. Decompressed urinary bladder with Mcdonough catheter. Assessment and Plan - Diagnosis (1) Acute pancreatitis Qualifiers: Pancreatitis type: drug induced Acute pancreatitis complication: no infection or necrosis Qualified Code(s): K85.30 - Drug induced acute pancreatitis without necrosis or infection Is this a current diagnosis for this admission?: Yes Plan: Resolved (2) Hyperglycemia due to type 2 diabetes mellitus Qualifiers: Diabetes mellitus intermediate insulin use: with intermediate use Qualified Code(s): E11.65 - Type 2 diabetes mellitus with hyperglycemia; Z79.4 - [facility] (current) use of insulin Is this a current diagnosis for this admission?: Yes (3) Chronic kidney disease, stage IV (severe) Is this a current diagnosis for this admission?: Yes (4) Coronary artery disease Qualifiers: Coronary Disease-Associated Artery/Lesion type: [place] artery Is this a current diagnosis for this admission?: Yes (5) Hypertension Qualifiers: Hypertension type: essential hypertension Is this a current diagnosis for this admission?: Yes (6) Hyponatremia Is this a current diagnosis for this admission?: Yes - Plan Summary Summary: 02/21/2019- Pancreatitis-the patient's lipase on admission was 1100. It dropped to 400. She is tolerating an oral diet. The pancreatitis was most likely due to the Tradjenta. This is on hold and we are using insulin only for her diabetes at this time. Diabetes mellitus-she is on Lantus 10 units twice daily. Will adjust based on sliding scale requirements. Holding Tradjenta as it is likely the etiology of her pancreatitis Chronic kidney disease stage IV-patient has been getting some IV fluids. Creatinine is slightly improved. Will need to monitor for fluid retention. Nephrology is following. Hypertension-blood pressures are quite labile. Continue current regimen and monitor. Adjust medications based on blood pressure readings. Coronary artery disease-continue current medications. No evidence of acute coronary syndrome at this time. Hyponatremia-when corrected for the hyperglycemia (glucose 600 on admission) the serum sodium is just in the lower normal range. We will continue to monitor. 02/22/2019-patient is feeling better today. GFR is improved slightly again. Because of her chronic kidney disease I will discontinue the IV fluids and e ncourage oral fluids. Glucose is still high but varies. Because the Tradjenta likely caused the [place] creatitis I am going to discontinue this and add a low-dose of glipizide. We will continue the Lantus (higher dose then most recent home dose) and the sliding scale. I did speak to the patient's PA at [place] and advised her of a likely discharged home tomorrow with home health. The patient's lipase decreased to 400 and she has been tolerating oral food without any difficulty. Pancreatitis is resolved. Renal function is slightly improved but still at stage IV which is her baseline. Serum sodium when corrected for hyperglycemia is normal Coronary artery disease stable - Time Time Spent with patient: 15-24 minutes Medications reviewed and adjusted accordingly: Yes Anticipated discharge: Home with Homehealth Within: within 24 hours
[2019-02-22] MEDS: ZOLPIDEM TARTRATE 5 MG TABLET PO SCH (22:10)
[2019-02-23] MEDS: HEPARIN SOD (PORCINE) 5,000 UNIT/ML 1 ML VIAL SUBCUT SCH (05:58)
[2019-02-23 06:46] LABS: BLOOD UREA NITROGEN 47 mg/dL (7-20); CALCIUM 8.2 mg/dL (8.4-10.2); GLUCOSE 231 mg/dL (75-110)
[2019-02-23 06:47] LABS: ALBUMIN 2.7 g/dL (3.5-5.0); ANION GAP 9 (5-19); CARBON DIOXIDE 22 mmol/L (22-30); CHLORIDE 108 mmol/L (98-107); PHOSPHORUS 2.6 mg/dL (2.5-4.5); POTASSIUM 3.4 mmol/L (3.6-5.0)
[2019-02-23] MEDS: INSULIN REG, HUMAN 100 UNIT/ML 3 ML VIAL (PYX) SUBCUT SCH ×2 (08:27→13:08)
[2019-02-23] MEDS: GLIPIZIDE XL 2.5 MG TAB.ER.24 PO SCH (08:28)
[2019-02-23] MEDS: DOCUSATE SODIUM 100 MG CAPSULE PO SCH (10:38)
[2019-02-23] MEDS: INSULIN GLARGINE,HUM.REC.ANLOG 1,000 UNIT/10 ML VIAL SUBCUT SCH (10:43)
--- NOTE | 2019-02-23 12:56 | PDOC DISCHARGE SUMMARY ---
Impression - Admit/DC Date/PCP Admission Date/Primary Care Provider: 02/20/19 11:14 FCO SARKAR PA-C Discharge Date: 02/23/19 - Discharge Diagnosis (1) Acute pancreatitis Is this a current diagnosis for this admission?: Yes (2) Hyperglycemia due to type 2 diabetes mellitus Is this a current diagnosis for this admission?: Yes (3) Chronic kidney disease, stage IV (severe) Is this a current diagnosis for this admission?: Yes (4) Coronary artery disease Is this a current diagnosis for this admission?: Yes (5) Hypertension Is this a current diagnosis for this admission?: Yes (6) Hyponatremia Is this a current diagnosis for this admission?: Yes - Assessment Summary: 02/21/2019- Pancreatitis-the patient's lipase on admission was 1100. It dropped to 400. She is tolerating an oral diet. The pancreatitis was most likely due to the Tradjenta. This is on hold and we are using insulin only for her diabetes at this time. Diabetes mellitus-she is on Lantus 10 units twice daily. Will adjust based on sliding scale requirements. Holding Tradjenta as it is likely the etiology of her pancreatitis Chronic kidney disease stage IV-patient has been getting some IV fluids. Creatinine is slightly improved. Will need to monitor for fluid retention. Nephrology is following. Hypertension-blood pressures are quite labile. Continue current regimen and mon itor. Adjust medications based on blood pressure readings. Coronary artery disease-continue current medications. No evidence of acute coronary syndrome at this time. Hyponatremia-when corrected for the hyperglycemia (glucose 600 on admission) the serum sodium is just in the lower normal range. We will continue to monitor. 02/22/2019-patient is feeling better today. GFR is improved slightly again. Because of her chronic kidney disease I will discontinue the IV fluids and encourage oral fluids. Glucose is still high but varies. Because the Tradjenta likely caused the pancreatitis I am going to discontinue this and add a low-dose of glipizide. We will continue the Lantus (higher dose then most recent home dose) and the sliding scale. I did speak to the patient's PA at [facility] and advised her of a likely discharged home tomorrow with home health. The patient's lipase decreased to 400 and she has been tolerating oral food without any difficulty. Pancreatitis is resolved. Renal function is slightly improved but still at stage IV which is her baseline. Serum sodium when corrected for hyperglycemia is normal Coronary artery disease stable 02/23/2019- Patient continues to be stable. Tolerating oral diet without any difficulty. Renal function is back to baseline. Stable for discharge to home. Pancreatitis most likely caused by Tradjenta. Diabetes medication regimen m odified as above. - Additional Information Resuscitation Status: Full Code Discharge Diet: Cardiac, Diabetic Discharge Activity: Activity As Tolerated Referrals: CHOLO ROSARIO PA-C [ALLIED HEALTH PROFESSIONAL] - 03/01/19 9:30 am FCO SARKAR PA-C [Primary Care Provider] - (Next week please) Prescriptions: Glipizide [Glucotrol Xl 2.5 mg Tab.er] 2.5 mg PO BIDACBS 15 Days #30 tab.er.24 Insulin Glargine,Hum.rec.anlog [Lantus Insulin 100 Unit/mL Insulin Pen] 12 unit SUBCUT BID 15 Days #2 pen Home Medications: Calcitriol [Rocaltrol 0.25 mcg Capsule] 0.25 mcg PO MOWEFR@1000 02/20/19 Carvedilol [Coreg 12.5 mg Tablet] 12.5 mg PO Q12 02/20/19 Donepezil HCl [Aricept 5 mg Tablet] 5 mg PO DAILY 02/20/19 Famotidine [Pepcid 20 mg Tablet] 20 mg PO BID 02/20/19 Furosemide [Lasix 40 mg Tablet] 40 mg PO DAILY 02/20/19 Hydralazine HCl [Apresoline 25 mg Tablet] 50 mg PO Q8 02/20/19 Isosorbide Mononitrate [Imdur 30 mg Tablet.er] 30 mg PO QAM 02/20/19 Levothyroxine Sodium [Synthroid 0.088 mg Tablet] 88 mcg PO Q6AM 02/20/19 Pramipexole Di-HCl [Pramipexole Dihydrochloride] 0.125 mg PO QHS 02/20/19 Promethazine HCl [Phenergan 25 mg Tablet] 12.5 mg PO Q6HP PRN 02/20/19 Rosuvastatin Calcium [Crestor 20 mg Tablet] 20 mg PO DAILY 02/20/19 Docusate Sodium [Colace 100 mg Capsule] 100 mg PO BID capsule 02/23/19 Glipizide [Glucotrol Xl 2.5 mg Tab.er] 2.5 mg PO BIDACBS 15 Days #30 tab.er.24 02/23/19 Insulin Glargine,Hum.rec.anlog [Lantus Insulin 100 Unit/mL Insulin Pen] 12 unit SUBCUT BID 15 Days #2 pen 02/23/19 History of Present Illiness History of Present Illness: MYRA RODRIGUEZ is a 79 year old female was sent from her primary care provider's office for an elevated lipase. Evaluation in the emergency department revealed a lipase of 1100. The patient also exhibited acute on chronic kidney injury. She was referred to the hospital service for admission. Hospital Course Hospital Course: Pancreatitis-Tradjenta was held. Lipase improved quickly. Patient tolerating oral diet. Diabetes mellitus-Tradjenta is no longer an option. I did increase her Lantus and she is currently on 12 units twice daily. I also started glipizide 2.5 mg twice daily until she can meet with her primary care provider (Fco Montaño) to consider further adjustments to her regimen. She should continue the renal/cardiac/diabetic diet Acute kidney injury-the patient has underlying chronic kidney disease. She suffered acute injury with her creatinine twice her normal range. With gentle IV fluids she is back to baseline. Dementia-the patient has some underlying dementia. Returning to her home with her home regimen will have a positive effect. Physical Exam Vital Signs: Temp Pulse Resp BP Pulse Ox 98.0 F 70 17 130/65 H 100 02/23/19 07:18 02/23/19 07:18 02/23/19 07:18 02/23/19 07:18 02/23/19 07:18 Intake & Output 02/22/19 02/23/19 02/24/19 06:59 06:59 06:59 Intake Total 717 1780 Output Total 1600 1500 Balance -883 280 Weight 54 kg 57 kg 57 kg General appearance: PRESENT: no acute distress, cooperative, thin Respiratory exam: PRESENT: clear to auscultation saqib, symmetrical, unlabored. ABSENT: rales, rhonchi, tachypnea, wheezes Cardiovascular exam: PRESENT: RRR, +S1, +S2 GI/Abdominal exam: PRESENT: normal bowel sounds, soft. ABSENT: distended, tenderness Neurological exam: PRESENT: alert, awake, oriented to person, oriented to place, oriented to situation Psychiatric exam: PRESENT: appropriate affect. ABSENT: agitated, anxious Results Laboratory Results: WBC 9.6 10^3/uL (4.0-10.5) 02/22/19 08:49 RBC 4.13 10^6/uL (3.72-5.28) 02/22/19 08:49 Hgb 12.2 g/dL (12.0-15.5) 02/22/19 08:49 Hct 36.2 % (36.0-47.0) 02/22/19 08:49 MCV 88 fl (80-97) 02/22/19 08:49 MCH 29.6 pg (27.0-33.4) 02/22/19 08:49 MCHC 33.8 g/dL (32.0-36.0) 02/22/19 08:49 RDW 13.6 % (11.5-14.0) 02/22/19 08:49 Plt Count 151 10^3/uL (150-450) 02/22/19 08:49 Lymph % (Auto) 23.9 % (13-45) 02/22/19 08:49 [place] % (Auto) 10.7 % (3-13) 02/22/19 08:49 Eos % (Auto) 1.0 % (0-6) 02/22/19 08:49 Baso % (Auto) 0.3 % (0-2) 02/22/19 08:49 Absolute Neuts (auto) 6.1 10^3/uL (1.7-8.2) 02/22/19 08:49 Absolute Lymphs (auto) 2.3 10^3/uL (0.5-4.7) 02/22/19 08:49 Absolute Monos (auto) 1.0 10^3/uL (0.1-1.4) 02/22/19 08:49 Absolute Eos (auto) 0.1 10^3/uL (0.0-0.6) 02/22/19 08:49 Absolute Basos (auto) 0.0 10^3/uL (0.0-0.2) 02/22/19 08:49 Seg Neutrophils % 64.1 % (42-78) 02/22/19 08:49 PT 13.4 SEC (11.4-15.4) 02/21/19 06:30 INR 1.02 02/21/19 06:30 Sodium 138.9 mmol/L (137-145) 02/23/19 05:19 Potassium 3.4 mmol/L (3.6-5.0) L 02/23/19 05:19 Chloride 108 mmol/L (98-107) H 02/23/19 05:19 Carbon Dioxide 22 mmol/L (22-30) 02/23/19 05:19 Anion Gap 9 (5-19) 02/23/19 05:19 BUN 47 mg/dL (7-20) H 02/23/19 05:19 Creatinine 2.80 mg/dL (0.52-1.25) H 02/23/19 05:19 Est GFR ( Amer) 20 (>60) L 02/23/19 05:19 Est GFR (MDRD) Non-Af 16 (>60) L 02/23/19 05:19 Glucose 231 mg/dL (75-110) H 02/23/19 05:19 POC Glucose 116 mg/dL (70-110) H 02/23/19 11:15 Hemoglobin A1c % > 14.0 % (4.7-6.0) H 02/21/19 06:30 Calcium 8.2 mg/dL (8.4-10.2) L 02/23/19 05:19 Phosphorus 2.6 mg/dL (2.5-4.5) 02/23/19 05:19 Magnesium 2.4 mg/dL (1.6-2.3) H 02/21/19 06:30 Total Bilirubin 0.6 mg/dL (0.2-1.3) 02/21/19 06:30 Direct Bilirubin 0.5 mg/dL (0.0-0.4) H 02/21/19 06:30 Neonat Total Bilirubin Not Reportable 02/21/19 06:30 Neonat Direct Bilirubin Not Reportable 02/21/19 06:30 Neonat Indirect Bili Not Reportable 02/21/19 06:30 AST 32 U/L (14-36) 02/21/19 06:30 ALT 15 U/L (<35) 02/21/19 06:30 Alkaline Phosphatase 80 U/L (38-126) 02/21/19 06:30 Creatine Kinase 56 U/L (30-135) 02/21/19 00:26 CK-MB (CK-2) 4.57 ng/mL (<4.55) H 02/21/19 00:26 Troponin I 0.101 ng/mL 02/21/19 00:26 NT-Pro-B Natriuret Pep 5390 pg/mL (<450) H 02/21/19 06:30 Total Protein 7.1 g/dL (6.3-8.2) 02/21/19 06:30 Albumin 2.7 g/dL (3.5-5.0) L 02/23/19 05:19 Triglycerides 75 mg/dL (<150) 02/21/19 06:30 Cholesterol 190.15 mg/dL (0-200) 02/21/19 06:30 LDL Cholesterol Direct 95 mg/dL (<100) 02/21/19 06:30 VLDL Cholesterol 15.0 mg/dL (10-31) 02/21/19 06:30 HDL Cholesterol 64 mg/dL (>40) 02/21/19 06:30 Lipase 425.8 U/L (23-300) H 02/21/19 06:30 TSH 0.77 uIU/mL (0.47-4.68) 02/21/19 06:30 Urine Color STRAW 02/20/19 12:59 Urine Appearance CLEAR 02/20/19 12:59 Urine pH 6.0 (5.0-9.0) 02/20/19 12:59 Ur Specific [place] 1.010 02/20/19 12:59 Urine Protein 30 mg/dL (NEGATIVE) H 02/20/19 12:59 Urine Glucose (UA) >=500 mg/dL (NEGATIVE) H 02/20/19 12:59 Urine Ketones NEGATIVE mg/dL (NEGATIVE) 02/20/19 12:59 Urine Blood SMALL (NEGATIVE) H 02/20/19 12:59 Urine Nitrite NEGATIVE (NEGATIVE) 02/20/19 12:59 Urine Bilirubin NEGATIVE (NEGATIVE) 02/20/19 12:59 Urine Urobilinogen NEGATIVE mg/dL (<2.0) 02/20/19 12:59 Ur Leukocyte Esterase NEGATIVE (NEGATIVE) 02/20/19 12:59 Urine WBC (Auto) 1 /HPF 02/20/19 12:59 Urine RBC (Auto) 0 /HPF 02/20/19 12:59 Urine Mucus (Auto) RARE /LPF 02/20/19 12:59 Urine Ascorbic Acid NEGATIVE (NEGATIVE) 02/20/19 12:59 02/20/19 02/20/19 02/21/19 09:45 17:41 00:26 CK-MB (CK-2) 4.99 H 4.92 H 4.57 H Troponin I 0.083 0.093 0.101 NT-Pro-B Natriuret Pep 02/21/19 06:30 CK-MB (CK-2) Troponin I NT-Pro-B Natriuret Pep 5390 H Impressions: Renal Ultrasound 02/20/19 00:00 IMPRESSION: Left kidney incompletely visualized secondary to overlying bowel gas. Right kidney without hydronephrosis. Decompressed urinary bladder with Mcdonough catheter. Plan Health Concerns: Finding tolerable medication regimen for diabetes Plan of Treatment: As outlined above Goals: Establishing tolerable and effective regimen for diabetes. Stability of chronic kidney disease and cardiovascular comorbidities. Time Spent: Greater than 30 Minutes Stroke Is this a Stroke Patient?: No Acute Heart Failure - Is this a Heart Failure Patient?: No
[2019-02-23 13:07] VITALS: BP 107/53
[2019-02-23] MEDS ORDERED: INSULIN GLARGINE,HUM.REC.ANLOG 1,000 UNIT/10 ML VIAL SUBCUT SCH (22:00)
== END 2019-02-23 14:06 | disposition home health service (06) | DRG 439 ==
LOC: ER 09:01 → EH 11:14 → 3W 16:13
PROVIDERS: ADMIT Internal Medicine; ATTEND Internal Medicine
DX: K85.30 Drug induced acute pancreatitis without necrosis or infection (principal); N18.4 Chronic kidney disease, stage 4 (severe); N17.9 Acute kidney failure, unspecified; E87.1 Hypo-osmolality and hyponatremia; E11.22 Type 2 diabetes mellitus with diabetic chronic kidney disease; E11.65 Type 2 diabetes mellitus with hyperglycemia; I12.9 Hypertensive chronic kidney disease with stage 1 through stage 4 chronic kidney disease, or unspecified chronic kidney disease; I25.10 Atherosclerotic heart disease of native coronary artery without angina pectoris; T38.3X5A Adverse effect of insulin and oral hypoglycemic [antidiabetic] drugs, initial encounter; E78.00 Pure hypercholesterolemia, unspecified; M19.90 Unspecified osteoarthritis, unspecified site; R19.7 Diarrhea, unspecified; R41.0 Disorientation, unspecified; E86.0 Dehydration; Z79.4 Long term (current) use of insulin; Z95.1 Presence of aortocoronary bypass graft; I25.2 Old myocardial infarction; Z88.8 Allergy status to other drugs, medicaments and biological substances; Z83.3 Family history of diabetes mellitus; Z82.49 Family history of ischemic heart disease and other diseases of the circulatory system
CPT/HCPCS: 36415; 76775; 80048; 80053; 80061; 80069; 81001; 82550; 82553; 82962; 83036; 83690; 83735; 83880; 84443; 84484; 85025; 85610; 87040; 87086; 93005; 93010; 96360; 99291; J1815; J3490; J7030; J7120

== ENCOUNTER 2019-02-24 14:31 | Inpatient (IN) | payer MEDICARE, MEDICAID ==
[2019-02-24] MEDS ORDERED: NORMAL SALINE 1000 ML 1,000 ML IV ONE (16:17)
[2019-02-24 16:22] LABS: ABSOLUTE EOSINOPHILS # (AUTO) 0.1 10^3/uL (0.0-0.6); ABSOLUTE MONOCYTES (AUTO) 0.5 10^3/uL (0.1-1.4); ABSOLUTE NEUT (AUTO) 5.1 10^3/uL (1.7-8.2); BASOPHILS % (AUTO) 0.5 % (0-2); EOSINOPHILS % (AUTO) 0.8 % (0-6); HEMATOCRIT 34.1 % (36.0-47.0); HEMOGLOBIN 11.5 g/dL (12.0-15.5); LYMPHOCYTES % (AUTO) 25.5 % (13-45); MEAN CORPUSCULAR HEMOGLOBIN 29.4 pg (27.0-33.4); MEAN CORPUSCULAR HGB CONC 33.5 g/dL (32.0-36.0); MEAN CORPUSCULAR VOLUME 88 fl (80-97); MONOCYTES % (AUTO) 7.1 % (3-13); PLATELET COUNT 135 10^3/uL (150-450); RED BLOOD COUNT 3.89 10^6/uL (3.72-5.28); RED CELL DISTRIBUTION WIDTH 13.7 % (11.5-14.0); SEGMENTED NEUTROPHILS % (AUTO) 66.1 % (42-78); TOTAL CELLS COUNTED % (AUTO) 100 %; WHITE BLOOD COUNT 7.7 10^3/uL (4.0-10.5)
[2019-02-24] MEDS ORDERED: NORMAL SALINE 500 ML IV ONE (16:32)
[2019-02-24 16:46] LABS: ALBUMIN 3.3 g/dL (3.5-5.0); ALKALINE PHOSPHATASE 55 U/L (38-126); ANION GAP 6 (5-19); ASPARTATE AMINO TRANSFERASE 38 U/L (14-36); BILIRUBIN,DIRECT 0.4 mg/dL (0.0-0.4); BILIRUBIN,TOTAL 0.5 mg/dL (0.2-1.3); BLOOD UREA NITROGEN 46 mg/dL (7-20); CALCIUM 8.6 mg/dL (8.4-10.2); CARBON DIOXIDE 26 mmol/L (22-30); CHLORIDE 107 mmol/L (98-107); CREATINE KINASE 44 U/L (30-135); GLUCOSE 184 mg/dL (75-110); POTASSIUM 3.8 mmol/L (3.6-5.0); TOTAL PROTEIN 6.7 g/dL (6.3-8.2)
[2019-02-24 16:56] LABS: CREATINE KINASE MB 1.89 ng/mL (<4.55); TROPONIN I 0.027 ng/mL
[2019-02-24 17:14] LABS: APPEARANCE,URINE TURBID; BILIRUBIN,URINE NEGATIVE (NEGATIVE); COLOR,URINE YELLOW; GLUCOSE, URINE >=500 mg/dL (NEGATIVE); KETONES,URINE NEGATIVE (NEGATIVE); LEUKOCYTE ESTERASE,URINE LARGE (NEGATIVE); NITRITE,URINE NEGATIVE (NEGATIVE); PROTEIN,URINE 100 mg/dL (NEGATIVE); URINE SPECIFIC GRAVITY 1.006; UROBILINOGEN,URINE NEGATIVE mg/dL (<2.0)
--- NOTE | 2019-02-24 17:54 | ER Document Report ---
Entered by KOMAL LILLY SCRIBE 02/24/19 1634 Acting as scribe for:CAROLYN ROGERS IV, MD ED General - General Chief Complaint: Low Blood Pressure Stated Complaint: WEAKNESS Time Seen by Provider: 02/24/19 16:15 Mode of Arrival: Ambulatory Information source: Patient TRAVEL OUTSIDE OF THE [place] IN LAST 30 DAYS: No - Related Data Allergies/Adverse Reactions: ezetimibe [From Zetia] Allergy (Verified 06/29/17 18:21) lactose [Lactose] Allergy (Verified 06/29/17 18:21) Home Medications: ASA. calcitriol. carvedilol. donepezil. famotidine. furosemide. glipizide. hydralazine. isosorbide mononitrate. levothyroxine. pramipexole. rosuvastatin. lantus. ntrio Past Medical History - Social History Smoking Status: Unknown if Ever Smoked Family History: Reviewed & Not Pertinent Patient has suicidal ideation: No Patient has homicidal ideation: No - Past Medical History Cardiac Medical History: Reports: Hx Coronary Artery Disease, Hx Heart Attack, Hx Hypercholesterolemia, Hx Hypertension Denies: Hx Congestive Heart Failure Pulmonary Medical History: Reports: Hx Pneumonia Denies: Hx Asthma, Hx Bronchitis, Hx COPD, Hx Tuberculosis Neurological Medical History: Denies: Hx Seizures, Hx Parkinson's Disease Endocrine Medical History: Reports: Hx Diabetes Mellitus Type 2 Renal/ Medical History: Denies: Hx End Stage Renal Disease, Hx Kidney Stones, Hx Peritoneal Dialysis GI Medical History: Reports: Hx Gastritis. Denies: Hx Cirrhosis, Hx Gastroesophageal Reflux Disease, Hx Ulcer Musculoskeletal Medical History: Reports Hx Arthritis, Denies Hx Multiple Sclerosis Psychiatric Medical History: Denies: Hx Bipolar Disorder, Hx Depression, Hx Schizophrenia Past Surgical History: Reports: Hx Cardiac Surgery - stents, Hx Coronary Artery Bypass Graft, Hx Hysterectomy, Hx Open Heart Surgery - CABGx2 - Immunizations Immunizations up to date: Yes Hx Pneumococcal Vaccination: 02/15/14 Physical Exam - Vital signs Vitals: Temp Pulse Resp BP Pulse Ox 98.0 F 69 18 93/49 L 100 02/24/19 14:40 02/24/19 14:40 02/24/19 14:40 02/24/19 14:40 02/24/19 14:40 Interpretation: Normal - General General appearance: Appears well, Alert - HEENT Head: Normocephalic, Atraumatic Eyes: Normal Pupils: PERRL - Respiratory Respiratory status: No respiratory distress Chest status: Nontender Breath sounds: Normal Chest palpation: Normal - Cardiovascular Rhythm: Regular Heart sounds: Normal auscultation Murmur: No - Abdominal Inspection: Normal Distension: No distension Bowel sounds: Normal Tenderness: Nontender Organomegaly: No organomegaly - Back Back: Normal, Nontender - Extremities General upper extremity: Normal inspection. No: Edema General lower extremity: Normal inspection. No: Edema - Neurological Neuro grossly intact: Yes Cognition: Normal Orientation: AAOx4 [place] Coma Scale Eye Opening: Spontaneous [place] Coma Scale Verbal: Oriented Anant Coma Scale Motor: Obeys Commands Anant Coma Scale Total: 15 Speech: Normal Motor strength normal: LUE, RUE, LLE, RLE Sensory: Normal - Psychological Associated symptoms: Normal affect, Normal mood - Skin Skin Temperature: Warm Skin Moisture: Dry Skin Color: Normal Course - Vital Signs Vital signs: Temp Pulse Resp BP Pulse Ox 98.5 F 70 16 148/63 H 100 02/25/19 08:06 02/25/19 08:06 02/25/19 08:06 02/25/19 08:06 02/25/19 08:06 - Laboratory Result Diagrams: 02/24/19 16:12 02/25/19 04:53 Laboratory results interpreted by me: 02/24/19 02/24/19 02/24/19 16:12 16:12 16:40 Hgb 11.5 L Hct 34.1 L Plt Count 135 L BUN 46 H Creatinine 2.97 H Est GFR ( Amer) 19 L Est GFR (MDRD) Non-Af 15 L Glucose 184 H AST 38 H Albumin 3.3 L Urine Protein 100 H Urine Glucose (UA) >=500 H Urine Blood SMALL H Ur Leukocyte Esterase LARGE H - EKG Interpretation by Me Additional EKG results interpreted by me: 02/24/19 17:47 EKG obtained on 02/24/2019 at 1537 hrs. was interpreted by this MD. Findings: Normal sinus rhythm, rate 68, P waves proceed QRS complexes, right bundle branch block is present, there are no obvious ST segment patterns of elevation or depression to suggest acute myocardial ischemia or infarction. Impression no rmal sinus rhythm with right bundle branch block and nonspecific ST segments. - Consults DR. STEWART Time consulted: 17:46 - HOSPITALIST Reason for consultation: 02/24/19 17:49 WEAKNESS, ORTHOSTATIC HYPOTENSION, ACUTE ON CHRONIC RENAL FAILURE, UTI Consulted provider: will come to ER Discharge - Discharge Clinical Impression: Orthostatic hypotension Acute on chronic renal failure Qualifiers: Acute renal failure type: unspecified Chronic kidney disease stage: unspecified stage Qualified Code(s): N17.9 - Acute kidney failure, unspecified UTI (urinary tract infection) Qualifiers: Urinary tract infection type: site unspecified Hematuria presence: with hematuria Qualified Code(s): N39.0 - Urinary tract infection, site not specified Condition: Good Disposition: ADMITTED OBSERVATION Admitting Provider: Bong (Hospitalist) Unit Admitted: Medical Floor I personally performed the services described in the documentation, reviewed and edited the documentation which was dictated to the scribe in my presence, and it accurately records my words and actions.
[2019-02-24] MEDS ORDERED: ONDANSETRON HCL INJ/PF 4 MG/2 ML SDV IV PRN (18:10)
[2019-02-24] MEDS ORDERED: ONDANSETRON 4 MG TAB.RAPDIS PO PRN (18:10)
[2019-02-24] MEDS ORDERED: ACETAMINOPHEN 325 MG TABLET PO PRN (18:10)
[2019-02-24] MEDS ORDERED: DEXTROSE 40% GEL 15 GM TUBE PO PRN ×2 (18:24)
[2019-02-24] MEDS ORDERED: DEXTROSE 50%-WATER 25 GM/50 ML DISP.SYRIN IV PRN ×2 (18:24)
[2019-02-24] MEDS ORDERED: GLUCAGON,HUMAN RECOMB 1 MG INJ IM PRN (18:24)
--- NOTE | 2019-02-24 18:45 | PDOC H&P ---
History of Present Illness Admission Date/PCP: 02/24/19 18:05 FCO SARKAR PA-C History of Present Illness: MYRA RODRIGUEZ is a 79 year old female was just discharged home from the hosp ital yesterday with history of acute pancreatitis diabetes chronic kidney disease stage IV CAD, hypertension, hyponatremia. Patient was at her ophthalmology office today around 1:00 and stated she felt weak, brought her to the emergency room where she was found Be hypotensive blood pressure 93/49 however this is come up quickly and is currently 124/66 Also has what appears to be a new urinary tract infection Since last urinalysis done here on February 20 was negative, it shows a large amount of leukocytes Her BUN of 46 and creatinine of 2.97 are about normal for her and not unusual Will be admitted to the hospital for gentle IV hydration and broad-spectrum antibiotic Past Medical History Cardiac Medical History: Reports: Coronary Artery Disease, Myocardial Infarction, Hyperlipidema, Hypertension Denies: Congestive Heart Failure Pulmonary Medical History: Reports: Pneumonia Denies: Asthma, Bronchitis, Chronic Obstructive Pulmonary Disease (COPD), Tuberculosis Neurological Medical History: Denies: Seizures Endocrine Medical History: Reports: Diabetes Mellitus Type 2 Renal/ Medical History: Denies: End Stage Renal Disease GI Medical History: Denies: Cirrhosis, Gastroesophageal Reflux Disease Musculoskeltal Medical History: Reports: Arthritis Psychiatric Medical History: Denies: Bipolar Disorder, Depression Past Surgical History Past Surgical History: Reports: Coronary Artery Bypass Graft, Hysterectomy Social History Smoking Status: Unknown if Ever Smoked Frequency of Alcohol Use: None Hx Recreational Drug Use: No Drugs: None Hx Prescription Drug Abuse: No - Advance Directive Resuscitation Status: Full Code Family History Family History: Reviewed & Not Pertinent Parental Family History Reviewed: No Children Family History Reviewed: No Sibling(s) Family History Reviewed.: No Medication/Allergy Home Medications: Calcitriol [Rocaltrol 0.25 mcg Capsule] 0.25 mcg PO MOWEFR@1000 02/20/19 Carvedilol [Coreg 12.5 mg Tablet] 12.5 mg PO Q12 02/20/19 Donepezil HCl [Aricept 5 mg Tablet] 5 mg PO DAILY 02/20/19 Famotidine [Pepcid 20 mg Tablet] 20 mg PO BID 02/20/19 Furosemide [Lasix 40 mg Tablet] 40 mg PO DAILY 02/20/19 Hydralazine HCl [Apresoline 25 mg Tablet] 50 mg PO Q8 02/20/19 Isosorbide Mononitrate [Imdur 30 mg Tablet.er] 30 mg PO QAM 02/20/19 Levothyroxine Sodium [Synthroid 0.088 mg Tablet] 88 mcg PO Q6AM 02/20/19 Pramipexole Di-HCl [Pramipexole Dihydrochloride] 0.125 mg PO QHS 02/20/19 Promethazine HCl [Phenergan 25 mg Tablet] 12.5 mg PO Q6HP PRN 02/20/19 Rosuvastatin Calcium [Crestor 20 mg Tablet] 20 mg PO DAILY 02/20/19 Docusate Sodium [Colace 100 mg Capsule] 100 mg PO BID capsule 02/23/19 Glipizide [Glucotrol Xl 2.5 mg Tab.er] 2.5 mg PO BIDACBS 15 Days #30 tab.er.24 02/23/19 Insulin Glargine,Hum.rec.anlog [Lantus Insulin 100 Unit/mL Insulin Pen] 12 unit SUBCUT BID 15 Days #2 pen 02/23/19 Allergies/Adverse Reactions: ezetimibe [From Zetia] Allergy (Verified 06/29/17 18:21) lactose [Lactose] Allergy (Verified 06/29/17 18:21) Review of Systems Constitutional: PRESENT: weakness. ABSENT: chills, fever(s), headache(s), weight gain, weight loss Cardiovascular: ABSENT: chest pain, dyspnea on exertion, edema, orthropnea, palpitations Respiratory: ABSENT: cough, hemoptysis Neurological: ABSENT: abnormal gait, abnormal speech, confusion, dizziness, focal weakness, syncope Psychiatric: ABSENT: anxiety, depression, homidical ideation, suicidal ideation Physical Exam Vital Signs: Temp Pulse Resp BP Pulse Ox 98.0 F 68 16 124/66 100 02/24/19 14:40 02/24/19 16:07 02/24/19 18:23 02/24/19 18:23 02/24/19 18:23 Intake & Output 02/23/19 02/24/19 02/25/19 06:59 06:59 06:59 Intake Total 500 Balance 500 Weight 53.977 kg General appearance: PRESENT: no acute distress, other - Awake alert and asking to go home Respiratory exam: PRESENT: clear to auscultation saqib. ABSENT: rales, rhonchi, wheezes Cardiovascular exam: PRESENT: RRR, other - Healed midline cardiac scar. ABSENT: diastolic murmur, rubs, systolic murmur Neurological exam: PRESENT: alert, awake, oriented to person, oriented to place, oriented to time, oriented to situation, CN II-XII grossly intact. ABSENT: motor sensory deficit Psychiatric exam: PRESENT: appropriate affect, normal mood, other - Very appropriate affect. ABSENT: homicidal ideation, suicidal ideation Results Laboratory Results: 02/24/19 16:12 02/24/19 16:12 02/24/19 02/24/19 02/24/19 16:12 16:12 16:12 WBC 7.7 RBC 3.89 Hgb 11.5 L Hct 34.1 L MCV 88 MCH 29.4 MCHC 33.5 RDW 13.7 Plt Count 135 L Seg Neutrophils % 66.1 Sodium 138.8 Potassium 3.8 Chloride 107 Carbon Dioxide 26 Anion Gap 6 BUN 46 H Creatinine 2.97 H Est GFR ( Amer) 19 L Glucose 184 H Calcium 8.6 Total Bilirubin 0.5 AST 38 H Alkaline Phosphatase 55 Total Protein 6.7 Albumin 3.3 L Lipase 137.6 Urine Color Urine Appearance Urine pH Ur Specific [place] Urine Protein Urine Glucose (UA) Urine Ketones Urine Blood Urine Nitrite Ur Leukocyte Esterase Urine WBC (Auto) 02/24/19 16:40 WBC RBC Hgb Hct MCV MCH MCHC RDW Plt Count Seg Neutrophils % Sodium Potassium Chloride Carbon Dioxide Anion Gap BUN Creatinine Est GFR ( Amer) Glucose Calcium Total Bilirubin AST Alkaline Phosphatase Total Protein Albumin Lipase Urine Color YELLOW Urine Appearance TURBID Urine pH 5.0 Ur Specific [place] 1.006 Urine Protein 100 H Urine Glucose (UA) >=500 H Urine Ketones NEGATIVE Urine Blood SMALL H Urine Nitrite NEGATIVE Ur Leukocyte Esterase LARGE H Urine WBC (Auto) >182 02/24/19 02/24/19 16:12 16:12 Creatine Kinase 44 CK-MB (CK-2) 1.89 Troponin I 0.027 Assessment and Plan - Diagnosis (1) Chronic kidney disease, stage IV (severe) Is this a current diagnosis for this admission?: Yes (2) Coronary artery disease Qualifiers: Coronary Disease-Associated Artery/Lesion type: [place] artery Is this a current diagnosis for this admission?: Yes (3) Hx of CABG Is this a current diagnosis for this admission?: Yes (4) Hyperglycemia due to type 2 diabetes mellitus Qualifiers: Diabetes mellitus buttermaker continuous churn insulin use: with chcf use Qualified Code(s): E11.65 - Type 2 diabetes mellitus with hyperglycemia; Z79.4 - nursing home (current) use of insulin Is this a current diagnosis for this admission?: Yes (5) Hypertension Qualifiers: Hypertension type: essential hypertension Is this a current diagnosis for this admission?: Yes (6) Type 2 diabetes mellitus Qualifiers: Is this a current diagnosis for this admission?: Yes - Plan Summary Summary: Patient is going to be admitted for broad-spectrum IV antibiotic, gentle hydration,, culture and sensitivity,, serial labs Patient is medically stable to go to the floor Family agrees with the work-up - Time Time Spent with patient: 35 or more minutes
--- NOTE | 2019-02-24 21:02 | EKG REPORT ---
SEVERITY:- ABNORMAL ECG - SINUS RHYTHM INCOMPLETE RBBB AND LAFB PROBABLE LVH WITH SECONDARY REPOL ABNRM : Confirmed by: Michelle Arellano 24-Feb-2019 21:01:16
[2019-02-24] MEDS: INSULIN LISPRO 100 UNIT/ML 3 ML VIAL SUBCUT SCH (22:38)
[2019-02-24] MEDS: HEPARIN SOD (PORCINE) 5,000 UNIT/ML 1 ML VIAL SUBCUT SCH (22:38)
[2019-02-24] MEDS: INSULIN GLARGINE,HUM.REC.ANLOG 1,000 UNIT/10 ML VIAL SUBCUT SCH (23:09)
[2019-02-24] MEDS: FAMOTIDINE 20 MG TABLET PO SCH (23:09)
[2019-02-24] MEDS: NORMAL SALINE 1000 ML 1,000 ML IV PRN (23:11)
[2019-02-24] MEDS: CEFTRIAXONE 1 GM/D5W RTU 1 GM/50 ML RTUPB IV SCH (23:11)
--- NOTE | 2019-02-25 01:26 | RADIOLOGY REPORT (SQ) ---
EXAM DESCRIPTION: X-ray single view chest. CLINICAL HISTORY: 79 years Female, Hypotension COMPARISON: 01/25/2018 TECHNIQUE: Single portable x-ray view of the chest performed on 02/24/2019 at 7:41 PM FINDINGS: The lungs are well expanded and are clear. There is no evidence of a pneumothorax. The cardiac silhouette is normal in size and configuration. There are remote postsurgical changes of the mediastinum. A prosthetic cardiac valve and stent are noted. The mediastinal contours are normal. No acute osseous abnormality is identified. No focal soft tissue abnormalities are seen. Lines and tubes: None. IMPRESSION: No evidence of acute intrathoracic disease. Remote median sternotomy and prosthetic cardiac valve and stent.
[2019-02-25] MEDS: HEPARIN SOD (PORCINE) 5,000 UNIT/ML 1 ML VIAL SUBCUT SCH ×3 (05:16→23:18)
[2019-02-25 05:58] LABS: ANION GAP 7 (5-19); BLOOD UREA NITROGEN 38 mg/dL (7-20); CARBON DIOXIDE 22 mmol/L (22-30); CHLORIDE 109 mmol/L (98-107); GLUCOSE 208 mg/dL (75-110); POTASSIUM 3.6 mmol/L (3.6-5.0)
[2019-02-25] MEDS: INSULIN LISPRO 100 UNIT/ML 3 ML VIAL SUBCUT SCH ×4 (08:07→23:18)
[2019-02-25] MEDS: FAMOTIDINE 20 MG TABLET PO SCH ×2 (10:36→23:58)
[2019-02-25] MEDS: CEFTRIAXONE 1 GM/D5W RTU 1 GM/50 ML RTUPB IV SCH (10:36)
[2019-02-25] MEDS: DOCUSATE SODIUM 100 MG CAPSULE PO SCH (10:36)
[2019-02-25] MEDS: GLIPIZIDE XL 2.5 MG TAB.ER.24 PO SCH ×2 (10:36→17:20)
[2019-02-25] MEDS: DONEPEZIL HCL 5 MG TABLET PO SCH (10:36)
[2019-02-25] MEDS: INSULIN GLARGINE,HUM.REC.ANLOG 1,000 UNIT/10 ML VIAL SUBCUT SCH ×2 (10:36→23:19)
[2019-02-25] MEDS: ISOSORBIDE MONONITRATE 30 MG TAB.ER.24H PO SCH (10:36)
[2019-02-25] MEDS: NORMAL SALINE 1000 ML 1,000 ML IV PRN (10:37)
--- NOTE | 2019-02-25 17:50 | PDOC PROGRESS REPORT ---
Subjective Progress Note for:: 02/25/19 Reason For Visit: UROSEPSIS,CHRONIC KIDNEY DISEASE,PANCREATITIS, 02/25/2019 UTI , sepsis, chronic kidney disease, history of pancreatitis, weakness Physical Exam Vital Signs: Temp Pulse Resp BP Pulse Ox 98.5 F 70 16 148/63 H 100 02/25/19 08:06 02/25/19 08:06 02/25/19 08:06 02/25/19 08:06 02/25/19 08:06 Intake & Output 02/24/19 02/25/19 02/26/19 06:59 06:59 06:59 Intake Total 1330 1050 Balance 1330 1050 Weight 46.7 kg General appearance: PRESENT: no acute distress, other - She is smiling and happy talking to her family Respiratory exam: PRESENT: clear to auscultation saqib. ABSENT: rales, rhonchi, wheezes Cardiovascular exam: PRESENT: RRR. ABSENT: diastolic murmur, rubs, systolic murmur Neurological exam: PRESENT: alert, awake, oriented to person, oriented to place, oriented to time, oriented to situation, CN II-XII grossly intact. ABSENT: motor sensory deficit Psychiatric exam: PRESENT: appropriate affect, normal mood. ABSENT: homicidal ideation, suicidal ideation Results Laboratory Results: 02/24/19 16:12 02/25/19 04:53 02/25/19 04:53 Sodium 137.8 Potassium 3.6 Chloride 109 H Carbon Dioxide 22 Anion Gap 7 BUN 38 H Creatinine 2.56 H Est GFR ( Amer) 22 L Glucose 208 H Calcium 8.0 L Magnesium 1.9 02/24/19 02/24/19 16:12 16:12 Creatine Kinase 44 CK-MB (CK-2) 1.89 Troponin I 0.027 Impressions: Chest X-Ray 02/24/19 18:15 IMPRESSION: No evidence of acute intrathoracic disease. Remote median sternotomy and prosthetic cardiac valve and stent. Assessment and Plan - Diagnosis (1) Chronic kidney disease, stage IV (severe) Is this a current diagnosis for this admission?: Yes (2) Coronary artery disease Qualifiers: Coronary Disease-Associated Artery/Lesion type: [place] artery Is this a current diagnosis for this admission?: Yes (3) Hx of CABG Is this a current diagnosis for this admission?: Yes (4) Hyperglycemia due to type 2 diabetes mellitus Qualifiers: Diabetes mellitus group home insulin use: with group home use Qualified Code(s): E11.65 - Type 2 diabetes mellitus with hyperglycemia; Z79.4 - ferry terminal supervisor (current) use of insulin Is this a current diagnosis for this admission?: Yes (5) Hypertension Qualifiers: Hypertension type: essential hypertension Is this a current diagnosis for this admission?: Yes (6) Type 2 diabetes mellitus Qualifiers: Is this a current diagnosis for this admission?: Yes - Plan Summary Summary: Patient is going to be admitted for broad-spectrum IV antibiotic, gentle hyd ration,, culture and sensitivity,, serial labs Patient is medically stable to go to the floor Family agrees with the work-up 02/25/2019 Temperature 98.5 pulse 70 blood pressure 148/63 O2 sat 100% on room air She has no complaints in fact she is asking to go home BUN on admission was 46 today it is 38 Creatinine on admission was 2.97 today it is 2.56 Glucose running anywhere from 100-200 And culture has yet to be collected I am going to call the floor her about this Continue IV fluids continue IV antibiotics - Time Time Spent with patient: 15-24 minutes
[2019-02-25] MEDS: HYDRALAZINE HCL 25 MG TABLET PO SCH (22:57)
[2019-02-25] MEDS: CARVEDILOL 12.5 MG TABLET PO SCH (22:59)
[2019-02-26] MEDS: NORMAL SALINE 1000 ML 1,000 ML IV PRN ×2 (02:33→13:31)
[2019-02-26] MEDS: HEPARIN SOD (PORCINE) 5,000 UNIT/ML 1 ML VIAL SUBCUT SCH ×3 (05:47→23:46)
[2019-02-26] MEDS: HYDRALAZINE HCL 25 MG TABLET PO SCH ×3 (05:47→23:46)
[2019-02-26] MEDS: LEVOTHYROXINE SODIUM 0.088 MG TABLET PO SCH (05:47)
[2019-02-26] MEDS: GLIPIZIDE XL 2.5 MG TAB.ER.24 PO SCH ×2 (08:23→16:11)
[2019-02-26] MEDS: INSULIN LISPRO 100 UNIT/ML 3 ML VIAL SUBCUT SCH ×4 (08:23→23:45)
[2019-02-26] MEDS: ISOSORBIDE MONONITRATE 30 MG TAB.ER.24H PO SCH (09:57)
[2019-02-26] MEDS: CARVEDILOL 12.5 MG TABLET PO SCH ×2 (09:57→23:41)
[2019-02-26] MEDS: DOCUSATE SODIUM 100 MG CAPSULE PO SCH (09:57)
[2019-02-26] MEDS: DONEPEZIL HCL 5 MG TABLET PO SCH (09:58)
[2019-02-26] MEDS: ASPIRIN 81 MG TABLET, CHEWABLE PO SCH (09:58)
[2019-02-26] MEDS: FUROSEMIDE 40 MG TABLET PO SCH (09:58)
[2019-02-26] MEDS: CEFTRIAXONE 1 GM/D5W RTU 1 GM/50 ML RTUPB IV SCH (09:58)
[2019-02-26] MEDS: INSULIN GLARGINE,HUM.REC.ANLOG 1,000 UNIT/10 ML VIAL SUBCUT SCH (09:59)
[2019-02-26] MEDS: FAMOTIDINE 20 MG TABLET PO SCH (11:43)
--- NOTE | 2019-02-26 15:38 | PDOC PROGRESS REPORT ---
Subjective Progress Note for:: 02/26/19 Reason For Visit: UROSEPSIS,CHRONIC KIDNEY DISEASE,PANCREATITIS, 02/26/2019 UTI, urosepsis, chronic kidney disease Physical Exam Vital Signs: Temp Pulse Resp BP Pulse Ox 97.4 F 70 16 122/54 L 100 02/26/19 11:00 02/26/19 11:00 02/26/19 11:00 02/26/19 11:00 02/26/19 11:00 Intake & Output 02/25/19 02/26/19 02/27/19 06:59 06:59 06:59 Intake Total 1330 2310 1530 Balance 1330 2310 1530 Weight 46.7 kg 50.7 kg General appearance: PRESENT: no acute distress Respiratory exam: PRESENT: clear to auscultation saqib. ABSENT: rales, rhonchi, wheezes Cardiovascular exam: PRESENT: RRR. ABSENT: diastolic murmur, rubs, systolic murmur GI/Abdominal exam: PRESENT: normal bowel sounds, soft. ABSENT: distended, guarding, mass, organolmegaly, rebound, tenderness Neurological exam: PRESENT: alert, awake, oriented to person, oriented to place, oriented to time, oriented to situation, CN II-XII grossly intact. ABSENT: motor sensory deficit Psychiatric exam: PRESENT: appropriate affect, normal mood. ABSENT: homicidal ideation, suicidal ideation Results Laboratory Results: 02/24/19 16:12 02/25/19 04:53 02/24/19 02/24/19 16:12 16:12 Creatine Kinase 44 CK-MB (CK-2) 1.89 Troponin I 0.027 Impressions: Chest X-Ray 02/24/19 18:15 IMPRESSION: No evidence of acute intrathoracic disease. Remote median sternotomy and prosthetic cardiac valve and stent. Assessment and Plan - Diagnosis (1) Chronic kidney disease, stage IV (severe) Is this a current diagnosis for this admission?: Yes (2) Coronary artery disease Qualifiers: Coronary Disease-Associated Artery/Lesion type: [place] artery Is this a current diagnosis for this admission?: Yes (3) Hx of CABG Is this a current diagnosis for this admission?: Yes (4) Hyperglycemia due to type 2 diabetes mellitus Qualifiers: Diabetes mellitus fdc insulin use: with fdc use Qualified Code(s): E11.65 - Type 2 diabetes mellitus with hyperglycemia; Z79.4 - snf (current) use of insulin Is this a current diagnosis for this admission?: Yes (5) Hypertension Qualifiers: Hypertension type: essential hypertension Is this a current diagnosis for this admission?: Yes (6) Type 2 diabetes mellitus Qualifiers: Is this a current diagnosis for this admission?: Yes - Plan Summary Summary: Patient is going to be admitted for broad-spectrum IV antibiotic, gentle hydration,, culture and sensitivity,, serial labs Patient is medically stable to go to the floor Family agrees with the work-up 02/25/2019 Temperature 98.5 pulse 70 blood pressure 148/63 O2 sat 100% on room air She has no complaints in fact she is asking to go home BUN on admission was 46 today it is 38 Creatinine on admission was 2.97 today it is 2.56 Glucose running anywhere from 100-200 And culture has yet to be collected I am going to call the floor her about this Continue IV fluids continue IV antibiotics 02/26/2019 Temperature 97.4 pulse 70 blood pressure 122/54 O2 sat 100% room air. This morning patient looks like she was feeling little tired in fact her glucose level this morning was 58. I held her a.m. dose of Lantus. Glucose levels have been running, usually between 100- 200. Going to decrease her nighttime dose of Lantus BC was normal on admission 02/24/2019. Electrolytes yesterday showed improvement from admission Urine culture is pending IV fluids normal saline at 100/h Patient getting Rocephin daily Lantus 10 units every 12 hours Glucotrol 2.5 mg twice daily I am going to recheck labs tomorrow in anticipation for discharge tomorrow. - Time Time Spent with patient: 25-34 minutes
[2019-02-26] MEDS ORDERED: INSULIN GLARGINE,HUM.REC.ANLOG 1,000 UNIT/10 ML VIAL SUBCUT SCH (22:00)
[2019-02-26] MEDS: FAMOTIDINE INJ/PF 20 MG/2 ML SDV IV SCH (23:47)
[2019-02-27] MEDS: HEPARIN SOD (PORCINE) 5,000 UNIT/ML 1 ML VIAL SUBCUT SCH (05:28)
[2019-02-27 05:31] LABS: ABSOLUTE EOSINOPHILS # (AUTO) 0.1 10^3/uL (0.0-0.6); ABSOLUTE LYMPHOCYTES (AUTO) 1.8 10^3/uL (0.5-4.7); ABSOLUTE MONOCYTES (AUTO) 0.6 10^3/uL (0.1-1.4); ABSOLUTE NEUT (AUTO) 3.4 10^3/uL (1.7-8.2); BASOPHILS % (AUTO) 0.6 % (0-2); EOSINOPHILS % (AUTO) 1.8 % (0-6); HEMATOCRIT 26.2 % (36.0-47.0); LYMPHOCYTES % (AUTO) 29.6 % (13-45); MEAN CORPUSCULAR HEMOGLOBIN 30.1 pg (27.0-33.4); MEAN CORPUSCULAR HGB CONC 34.7 g/dL (32.0-36.0); MEAN CORPUSCULAR VOLUME 87 fl (80-97); MONOCYTES % (AUTO) 10.9 % (3-13); RED BLOOD COUNT 3.02 10^6/uL (3.72-5.28); RED CELL DISTRIBUTION WIDTH 14.1 % (11.5-14.0); SEGMENTED NEUTROPHILS % (AUTO) 57.1 % (42-78); TOTAL CELLS COUNTED % (AUTO) 100 %; WHITE BLOOD COUNT 5.9 10^3/uL (4.0-10.5)
[2019-02-27] MEDS: HYDRALAZINE HCL 25 MG TABLET PO SCH (05:40)
[2019-02-27] MEDS: LEVOTHYROXINE SODIUM 0.088 MG TABLET PO SCH (05:40)
[2019-02-27] MEDS: NORMAL SALINE 1000 ML 1,000 ML IV PRN (05:40)
[2019-02-27 05:54] LABS: ANION GAP 8 (5-19); BLOOD UREA NITROGEN 27 mg/dL (7-20); CALCIUM 7.8 mg/dL (8.4-10.2); CARBON DIOXIDE 19 mmol/L (22-30); CHLORIDE 113 mmol/L (98-107); GLUCOSE 197 mg/dL (75-110); POTASSIUM 3.5 mmol/L (3.6-5.0)
[2019-02-27 06:19] LABS: HEMOGLOBIN 9.1 g/dL (12.0-15.5)
[2019-02-27 06:29] LABS: PLATELET COUNT 97 10^3/uL (150-450)
[2019-02-27] MEDS: INSULIN LISPRO 100 UNIT/ML 3 ML VIAL SUBCUT SCH (08:45)
[2019-02-27] MEDS: GLIPIZIDE XL 2.5 MG TAB.ER.24 PO SCH (08:45)
[2019-02-27] MEDS: ISOSORBIDE MONONITRATE 30 MG TAB.ER.24H PO SCH (08:45)
[2019-02-27] MEDS: DOCUSATE SODIUM 100 MG CAPSULE PO SCH (09:50)
[2019-02-27] MEDS: FUROSEMIDE 40 MG TABLET PO SCH (09:51)
[2019-02-27] MEDS: FAMOTIDINE INJ/PF 20 MG/2 ML SDV IV SCH (09:51)
[2019-02-27] MEDS: ASPIRIN 81 MG TABLET, CHEWABLE PO SCH (09:51)
[2019-02-27] MEDS: CARVEDILOL 12.5 MG TABLET PO SCH (09:51)
[2019-02-27] MEDS: DONEPEZIL HCL 5 MG TABLET PO SCH (09:51)
[2019-02-27] MEDS ORDERED: CALCITRIOL 0.25 MCG CAPSULE PO SCH (10:00)
[2019-02-27] MEDS ORDERED: INSULIN GLARGINE,HUM.REC.ANLOG 1,000 UNIT/10 ML VIAL SUBCUT SCH (10:00)
[2019-02-27 10:45] VITALS: BP 98/51
[2019-02-27] MEDS: CEFTRIAXONE 1 GM/D5W RTU 1 GM/50 ML RTUPB IV SCH (10:48)
--- NOTE | 2019-02-27 15:50 | PDOC DISCHARGE SUMMARY ---
Impression - Admit/DC Date/PCP Admission Date/Primary Care Provider: 02/24/19 18:10 [facility] SARKAR PA-C Discharge Date: 02/27/19 - Discharge Diagnosis (1) Chronic kidney disease, stage IV (severe) Is this a current diagnosis for this admission?: Yes (2) Coronary artery disease Is this a current diagnosis for this admission?: Yes (3) Hx of CABG Is this a current diagnosis for this admission?: Yes (4) Hyperglycemia due to type 2 diabetes mellitus Is this a current diagnosis for this admission?: Yes (5) Hypertension Is this a current diagnosis for this admission?: Yes (6) Type 2 diabetes mellitus Is this a current diagnosis for this admission?: Yes - Assessment Summary: Patient is going to be admitted for broad-spectrum IV antibiotic, gentle hydration,, culture and sensitivity,, serial labs Patient is medically stable to go to the floor Family agrees with the work-up 02/25/2019 Temperature 98.5 pulse 70 blood pressure 148/63 O2 sat 100% on room air She has no complaints in fact she is asking to go home BUN on admission was 46 today it is 38 Creatinine on admission was 2.97 today it is 2.56 Glucose running anywhere from 100-200 And culture has yet to be collected I am going to call the floor her about this Continue IV fluids continue IV antibiotics 02/26/2019 Temperature 97.4 pulse 70 blood pressure 122/54 O2 sat 100% room air. This morning patient looks like she was feeling little tired in fact her glucose level this morning was 58. I held her a.m. dose of Lantus. Glucose levels have been running, usually between 100- 200. Going to decrease her nighttime dose of Lantus BC was normal on admission 02/24/2019. Electrolytes yesterday showed improvement from admission Urine culture is pending IV fluids normal saline at 100/h Patient getting Rocephin daily Lantus 10 units every 12 hours Glucotrol 2.5 mg twice daily I am going to recheck labs tomorrow in anticipation for discharge tomorrow. 02/27/2019 Patient is afebrile vital signs are stable urine culture is pending, ever I am going to send her home on Cipro 250 mg 1 twice daily for 7 days also I have changed her Lantus to 8 mg in the morning and 6 mg at night Diagnosis is UTI, sepsis, acute on chronic kidney disease, hyponatremia, coronary artery disease, hypotension Patient's renal functions have improved on admission her BUN was 46 on discharge 27. Creatinine on admission 2.97 on discharge 2.42 Patient is asking to go home and she is medically stable - Additional Information Resuscitation Status: Full Code Discharge Diet: As Tolerated Discharge Activity: Balance Activity w/Rest Referrals: [facility] SARKAR PA-C [Primary Care Provider] - Follow up as needed (^ [phone] No answer at provider's office. A message was left for office to call patient with a hospital follow up appt. date and time.) Prescriptions: Ciprofloxacin HCl [Cipro 250 mg Tablet] 1 tab PO BID #14 tab Insulin Glargine,Hum.rec.anlog [Lantus Insulin 100 Unit/1 ml 10 ml] 8 unit SUBCUT QAM 30 Days #1 unit Insulin Glargine,Hum.rec.anlog [Lantus Insulin 100 Unit/1 ml 10 ml] 6 unit SUBCUT QHS 30 Days #1 unit Home Medications: Calcitriol [Rocaltrol 0.25 mcg Capsule] 0.25 mcg PO MOWEFR@1000 02/20/19 Carvedilol [Coreg 12.5 mg Tablet] 12.5 mg PO Q12 02/20/19 Donepezil HCl [Aricept 5 mg Tablet] 5 mg PO DAILY 02/20/19 Famotidine [Pepcid 20 mg Tablet] 20 mg PO BID 02/20/19 Hydralazine HCl [Apresoline 25 mg Tablet] 50 mg PO Q8 02/20/19 Isosorbide Mononitrate [Imdur 30 mg Tablet.er] 15 mg PO QAM 02/20/19 Levothyroxine Sodium [Synthroid 0.088 mg Tablet] 88 mcg PO Q6AM 02/20/19 Pramipexole Di-HCl [Pramipexole Dihydrochloride] 0.125 mg PO QHS 02/20/19 Rosuvastatin Calcium [Crestor 20 mg Tablet] 20 mg PO DAILY 02/20/19 Glipizide [Glucotrol Xl 2.5 mg Tab.er] 2.5 mg PO BIDACBS 15 Days #30 tab.er.24 02/23/19 Acetaminophen [Tylenol 325 mg Tablet] 325 mg PO DAILYP PRN 02/24/19 Aspirin [Aspirin 81 mg Chewable Tablet] 81 mg PO DAILY 02/24/19 Furosemide [Lasix 40 mg Tablet] 20 mg PO QHS 02/24/19 Nitroglycerin [Nitrostat 0.4 mg (1/150 Gr) Tabs 25/Bottle] 1 tab SL Q5MP PRN 02/24/19 Acetaminophen [Tylenol 325 mg Tablet] 650 mg PO Q4HP PRN tablet 02/27/19 Ciprofloxacin HCl [Cipro 250 mg Tablet] 1 tab PO BID #14 tab 02/27/19 Docusate Sodium [Colace 100 mg Capsule] 100 mg PO DAILY capsule 02/27/19 Donepezil HCl [Aricept 5 mg Tablet] 5 mg PO DAILY tablet 02/27/19 Glipizide [Glucotrol Xl 2.5 mg Tab.er] 2.5 mg PO BIDACBS tab.er.24 02/27/19 Insulin Glargine,Hum.rec.anlog [Lantus Insulin 100 Unit/1 ml 10 ml] 6 unit SUBCUT QHS 30 Days #1 unit 02/27/19 Insulin Glargine,Hum.rec.anlog [Lantus Insulin 100 Unit/1 ml 10 ml] 8 unit SUBCUT QAM 30 Days #1 unit 02/27/19 Isosorbide Mononitrate [Imdur 30 mg Tablet.er] 30 mg PO QAM tab.er.24h 02/27/19 History of Present Illiness History of Present Illness: MYRA RODRIGUEZ is a 79 year old female was just discharged home from the hospital yesterday with history of acute pancreatitis diabetes chronic kidney disease stage IV CAD, hypertension, hyponatremia. Patient was at her ophthalmology office today around 1:00 and stated she felt weak, brought her to the emergency room where she was found Be hypotensive blood pressure 93/49 however this is come up quickly and is currently 124/66 Also has what appears to be a new urinary tract infection Since last urinalysis done here on February 20 was negative, it shows a large amount of leukocytes Her BUN of 46 and creatinine of 2.97 are about normal for her and not unusual Will be admitted to the hospital for gentle IV hydration and broad-spectrum antibiotic Physical Exam Vital Signs: Temp Pulse Resp BP Pulse Ox 98.4 F 69 17 98/51 L 100 02/27/19 10:31 02/27/19 10:31 02/27/19 10:31 02/27/19 10:31 02/27/19 10:31 Intake & Output 02/26/19 02/27/19 02/28/19 06:59 06:59 06:59 Intake Total 0 3316 Balance 2309 3316 Weight 50.7 kg 52.4 kg Results Laboratory Results: WBC 5.9 10^3/uL (4.0-10.5) 02/27/19 04:40 RBC 3.02 10^6/uL (3.72-5.28) L 02/27/19 04:40 Hgb 9.1 g/dL (12.0-15.5) L D 02/27/19 04:40 Hct 26.2 % (36.0-47.0) L 02/27/19 04:40 MCV 87 fl (80-97) 02/27/19 04:40 MCH 30.1 pg (27.0-33.4) 02/27/19 04:40 MCHC 34.7 g/dL (32.0-36.0) 02/27/19 04:40 RDW 14.1 % (11.5-14.0) H 02/27/19 04:40 Plt Count 97 10^3/uL (150-450) L 02/27/19 04:40 Lymph % (Auto) 29.6 % (13-45) 02/27/19 04:40 [place] % (Auto) 10.9 % (3-13) 02/27/19 04:40 Eos % (Auto) 1.8 % (0-6) 02/27/19 04:40 Baso % (Auto) 0.6 % (0-2) 02/27/19 04:40 Absolute Neuts (auto) 3.4 10^3/uL (1.7-8.2) 02/27/19 04:40 Absolute Lymphs (auto) 1.8 10^3/uL (0.5-4.7) 02/27/19 04:40 Absolute Monos (auto) 0.6 10^3/uL (0.1-1.4) 02/27/19 04:40 Absolute Eos (auto) 0.1 10^3/uL (0.0-0.6) 02/27/19 04:40 Absolute Basos (auto) 0.0 10^3/uL (0.0-0.2) 02/27/19 04:40 Seg Neutrophils % 57.1 % (42-78) 02/27/19 04:40 Sodium 139.6 mmol/L (137-145) 02/27/19 04:40 Potassium 3.5 mmol/L (3.6-5.0) L 02/27/19 04:40 Chloride 113 mmol/L (98-107) H 02/27/19 04:40 Carbon Dioxide 19 mmol/L (22-30) L 02/27/19 04:40 Anion Gap 8 (5-19) 02/27/19 04:40 BUN 27 mg/dL (7-20) H 02/27/19 04:40 Creatinine 2.42 mg/dL (0.52-1.25) H 02/27/19 04:40 Est GFR ( Amer) 23 (>60) L 02/27/19 04:40 Est GFR (MDRD) Non-Af 19 (>60) L 02/27/19 04:40 Glucose 197 mg/dL (75-110) H 02/27/19 04:40 POC Glucose 153 mg/dL (70-110) H 02/27/19 07:43 Calcium 7.8 mg/dL (8.4-10.2) L 02/27/19 04:40 Magnesium 1.9 mg/dL (1.6-2.3) 02/25/19 04:53 Total Bilirubin 0.5 mg/dL (0.2-1.3) 02/24/19 16:12 Direct Bilirubin 0.4 mg/dL (0.0-0.4) 02/24/19 16:12 Neonat Total Bilirubin Not Reportable 02/24/19 16:12 Neonat Direct Bilirubin Not Reportable 02/24/19 16:12 Neonat Indirect Bili Not Reportable 02/24/19 16:12 AST 38 U/L (14-36) H 02/24/19 16:12 ALT 19 U/L (<35) 02/24/19 16:12 Alkaline Phosphatase 55 U/L (38-126) 02/24/19 16:12 Creatine Kinase 44 U/L (30-135) 02/24/19 16:12 CK-MB (CK-2) 1.89 ng/mL (<4.55) 02/24/19 16:12 Troponin I 0.027 ng/mL 02/24/19 16:12 Total Protein 6.7 g/dL (6.3-8.2) 02/24/19 16:12 Albumin 3.3 g/dL (3.5-5.0) L 02/24/19 16:12 Lipase 137.6 U/L (23-300) 02/24/19 16:12 Urine Color YELLOW 02/24/19 16:40 Urine Appearance TURBID 02/24/19 16:40 Urine pH 5.0 (5.0-9.0) 02/24/19 16:40 Ur Specific [place] 1.006 02/24/19 16:40 Urine Protein 100 mg/dL (NEGATIVE) H 02/24/19 16:40 Urine Glucose (UA) >=500 mg/dL (NEGATIVE) H 02/24/19 16:40 Urine Ketones NEGATIVE mg/dL (NEGATIVE) 02/24/19 16:40 Urine Blood SMALL (NEGATIVE) H 02/24/19 16:40 Urine Nitrite NEGATIVE (NEGATIVE) 02/24/19 16:40 Urine Bilirubin NEGATIVE (NEGATIVE) 02/24/19 16:40 Urine Urobilinogen NEGATIVE mg/dL (<2.0) 02/24/19 16:40 Ur Leukocyte Esterase LARGE (NEGATIVE) H 02/24/19 16:40 Urine WBC (Auto) >182 /HPF 02/24/19 16:40 Urine WBC Clumps MANY /HPF 02/24/19 16:40 Squamous Epi Cells Auto 5 /HPF 02/24/19 16:40 U Non-Squamous Epis Auto 4 /HPF 02/24/19 16:40 Urine Mucus (Auto) RARE /LPF 02/24/19 16:40 Urine Yeast (Budding) PRESENT /HPF 02/24/19 16:40 Urine Ascorbic Acid NEGATIVE (NEGATIVE) 02/24/19 16:40 02/24/19 16:12 CK-MB (CK-2) 1.89 Troponin I 0.027 Impressions: Chest X-Ray 02/24/19 18:15 IMPRESSION: No evidence of acute intrathoracic disease. Remote median sternotomy and prosthetic cardiac valve and stent. Stroke Is this a Stroke Patient?: No Acute Heart Failure - Is this a Heart Failure Patient?: No
== END 2019-02-27 11:21 | disposition home or self-care (01) | DRG 872 ==
LOC: ER 14:31 → EH 18:05 → OBSVTOIN 18:10 → 5 19:29
PROVIDERS: ADMIT Hospitalist; ATTEND Hospitalist
DX: A41.9 Sepsis, unspecified organism (principal); E87.1 Hypo-osmolality and hyponatremia; N18.4 Chronic kidney disease, stage 4 (severe); N39.0 Urinary tract infection, site not specified; E11.22 Type 2 diabetes mellitus with diabetic chronic kidney disease; I25.10 Atherosclerotic heart disease of native coronary artery without angina pectoris; I12.9 Hypertensive chronic kidney disease with stage 1 through stage 4 chronic kidney disease, or unspecified chronic kidney disease; E11.65 Type 2 diabetes mellitus with hyperglycemia; E78.5 Hyperlipidemia, unspecified; M19.90 Unspecified osteoarthritis, unspecified site; Z95.1 Presence of aortocoronary bypass graft; Z79.82 Long term (current) use of aspirin; Z79.4 Long term (current) use of insulin; I25.2 Old myocardial infarction; Z88.8 Allergy status to other drugs, medicaments and biological substances; Z95.5 Presence of coronary angioplasty implant and graft
CPT/HCPCS: 36415; 71045; 80048; 80053; 81001; 82550; 82553; 82962; 83690; 83735; 84484; 85025; 87086; 87088; 87186; 93005; 93010; 96360; 99285; J0696; J1815; J3490; J7030; J7040; S0028

== ENCOUNTER → 2019-03-08 | Outpatient (CLI) | payer MEDICARE, MEDICAID ==
[2019-03-08 13:44] LABS: HEMATOCRIT 28.4 % (36.0-47.0); HEMOGLOBIN 9.7 g/dL (12.0-15.5); MEAN CORPUSCULAR HEMOGLOBIN 29.5 pg (27.0-33.4); MEAN CORPUSCULAR HGB CONC 34.3 g/dL (32.0-36.0); MEAN CORPUSCULAR VOLUME 86 fl (80-97); PLATELET COUNT 121 10^3/uL (150-450); RED CELL DISTRIBUTION WIDTH 14.2 % (11.5-14.0); WHITE BLOOD COUNT 4.9 10^3/uL (4.0-10.5)
[2019-03-08 13:50] LABS: APPEARANCE,URINE SLIGHTLY-CLOUDY; BILIRUBIN,URINE NEGATIVE (NEGATIVE); COLOR,URINE YELLOW; GLUCOSE, URINE 50 mg/dL (NEGATIVE); KETONES,URINE NEGATIVE (NEGATIVE); LEUKOCYTE ESTERASE,URINE LARGE (NEGATIVE); NITRITE,URINE NEGATIVE (NEGATIVE); PROTEIN,URINE 100 mg/dL (NEGATIVE); URINE SPECIFIC GRAVITY 1.015; UROBILINOGEN,URINE NEGATIVE mg/dL (<2.0)
[2019-03-08 14:05] LABS: ALBUMIN 3.3 g/dL (3.5-5.0); ANION GAP 8 (5-19); BLOOD UREA NITROGEN 27 mg/dL (7-20); CALCIUM 8.8 mg/dL (8.4-10.2); CARBON DIOXIDE 26 mmol/L (22-30); CHLORIDE 108 mmol/L (98-107); GLUCOSE 133 mg/dL (75-110); PHOSPHORUS 2.9 mg/dL (2.5-4.5); POTASSIUM 3.5 mmol/L (3.6-5.0)
[2019-03-08 14:11] LABS: UR PRO/CREAT RATIO RESULT 0.8 mg/mg (0.0-0.2); URINE CREATININE 135.6 mg/dL (15-278); URINE PROTEIN 111.3 mg/dL (<12)
[2019-03-08 17:23] LABS: IRON(TIBC) 41.1 ug/dL (37-170)
== END ==
LOC: OD 13:13
PROVIDERS: ATTEND Physician Assistant Medical
DX: E11.22 Type 2 diabetes mellitus with diabetic chronic kidney disease (principal); I13.0 Hypertensive heart and chronic kidney disease with heart failure and stage 1 through stage 4 chronic kidney disease, or unspecified chronic kidney disease; N18.4 Chronic kidney disease, stage 4 (severe); I50.9 Heart failure, unspecified; D63.1 Anemia in chronic kidney disease; D50.9 Iron deficiency anemia, unspecified; N39.0 Urinary tract infection, site not specified
CPT/HCPCS: 36415; 80069; 81001; 82570; 82728; 83540; 83550; 83970; 84156; 85027; 87086

== ENCOUNTER → 2019-06-23 | Outpatient (CLI) | payer MEDICARE, MEDICAID ==
[2019-06-23 12:16] LABS: ABSOLUTE EOSINOPHILS # (AUTO) 0.3 10^3/uL (0.0-0.6); ABSOLUTE LYMPHOCYTES (AUTO) 2.1 10^3/uL (0.5-4.7); ABSOLUTE MONOCYTES (AUTO) 0.7 10^3/uL (0.1-1.4); ABSOLUTE NEUT (AUTO) 2.8 10^3/uL (1.7-8.2); BASOPHILS % (AUTO) 0.6 % (0-2); EOSINOPHILS % (AUTO) 5.5 % (0-6); HEMOGLOBIN 11.3 g/dL (12.0-15.5); LYMPHOCYTES % (AUTO) 35.5 % (13-45); MEAN CORPUSCULAR HEMOGLOBIN 29.3 pg (27.0-33.4); MEAN CORPUSCULAR HGB CONC 34.2 g/dL (32.0-36.0); MEAN CORPUSCULAR VOLUME 86 fl (80-97); MONOCYTES % (AUTO) 11.7 % (3-13); PLATELET COUNT 147 10^3/uL (150-450); RED BLOOD COUNT 3.85 10^6/uL (3.72-5.28); RED CELL DISTRIBUTION WIDTH 13.8 % (11.5-14.0); SEGMENTED NEUTROPHILS % (AUTO) 46.7 % (42-78); TOTAL CELLS COUNTED % (AUTO) 100 %
[2019-06-23 12:45] LABS: ANION GAP 8 (5-19); BLOOD UREA NITROGEN 43 mg/dL (7-20); CALCIUM 9.4 mg/dL (8.4-10.2); CARBON DIOXIDE 26 mmol/L (22-30); CHLORIDE 106 mmol/L (98-107); GLUCOSE 100 mg/dL (75-110); POTASSIUM 4.1 mmol/L (3.6-5.0)
== END ==
LOC: OD 11:09
PROVIDERS: ATTEND Physician Assistant Medical
DX: N18.4 Chronic kidney disease, stage 4 (severe) (principal)
CPT/HCPCS: 36415; 80048; 85025